=== PATIENT | female | born 1965 | race Two or more races ===

== ENCOUNTER 2024-10-28 13:38 | Inpatient (IN) | payer MEDICAID, OTHER ==
[~2024-10-28] VITALS: Ht 167.6 cm; Wt 94.3 kg
[~2024-10-28 13:38] MED LIST: ATOR20TA PO; CARB0.5D28 EACHEYE; CHOL20002 PO; DAPA1TAB4 PO; DORZ2SOL18 LEFTEYE; FENO200C25 PO; INSU100I61 SC; INSU1INJ19 SC; LORA-622 PO; LOSA-534 PO; METF-372 PO; SEMA2INJ3 SC
[2024-10-28 14:20] LABS: Basophils # (auto) 0.1 10 ^3/uL (0-0.2); Basophils % (auto) 1.1 % (0.0-2.0); Eosinophils # (auto) 0.1 10 ^3/uL (0-0.8); Hematocrit 42.4 % (36.0-46.0); Hemoglobin 14.5 g/dL (12.2-16.2); Lymphocytes # (auto) 1.8 10 ^3/uL (0.4-5.4); Lymphocytes % (auto) 26.9 % (10.0-50.0); Mean Corpuscular Hemoglobin 30.6 pg (28.0-32.0); Mean Corpuscular Hgb Conc. 34.2 g/dL (32.0-36.0); Mean Corpuscular Volume 89.6 fL (80.0-100.0); Monocytes # (auto) 0.4 10 ^3/uL (0-1.3); Monocytes % (auto) 5.9 % (0.0-12.0); Neutrophils # (auto) 4.4 10 ^3/uL (1.6-8.6); Neutrophils % (auto) 64.1 % (37.0-80.0); Nucleated Red Blood Cells % 0.1 %; Platelet Count (auto) 330 10^3/uL (140-450); Red Blood Cells 4.74 10^6/uL (4.0-5.20); Red Cell Distribution Width 13.4 % (11.8-14.3); White Blood Cell 6.8 10^3/uL (4.4-10.8)
[2024-10-28 14:34] LABS: INR 1.01 (0.9-1.15); Partial Thromboplastin Time 27.8 SEC (24.5-34.5); Prothrombin Time 10.7 sec (9.3-11.8)
[2024-10-28 14:37] LABS: Chloride 104 mmol/L (98-107); Sodium 136 mmol/L (136-145)
[2024-10-28 14:38] LABS: Anion Gap 7 (5-15); Calcium 9.5 mg/dL (8.7-10.4); Carbon Dioxide 25 mmol/L (20-31)
[2024-10-28 14:43] LABS: BUN/Creatinine Ratio 14.8 (10.0-20.0); Blood Urea Nitrogen 16 mg/dL (9-23)
[2024-10-28 14:49] LABS: Glucose 310 mg/dL (74-106); Potassium 5.6 mmol/L (3.5-5.1)
--- NOTE | 2024-10-28 16:08 | DVH ---
CHEST RADIOGRAPH Indication: high bp Technique: Single frontal view of the chest was obtained COMPARISON: None FINDINGS: Lines and Tubes: None Lungs: Clear Pleura: No effusion. No pneumothorax. Cardiomediastinal contours: Unremarkable Bones: Unremarkable IMPRESSION: No acute disease.
--- NOTE | 2024-10-28 16:14 | DVH ---
EXAM: CT HEAD WITHOUT CONTRAST INDICATION: R sided numb, R eye blurred vision TECHNIQUE: CT of the head without intravenous contrast. Radiation Dose Information: CT Dose: CTDI volume is 56.63 mGy. Dose-length product is 1002.48 mGy*cm The dose indicators for CT are the volume Computed Tomography (CT) Dose Index (CTDIvol) and the Dose Length Product (DLP), and are measured in units of mGy and mGy-cm, respectively. These indicators are not patient dose, but values generated from the CT scanner acquisition factors. The report includes radiation exposure data for exposures received during this examination. COMPARISON: None FINDINGS: There is no evidence of acute intracranial hemorrhage, extra-axial collection, mass effect, midline s hift, herniation or hydrocephalus. The ventricles, sulci and cisterns are age appropriate. Bilateral basal ganglia calcifications. The daigle-white differentiation is intact. Patchy periventricular and subcortical white matter hypoattenuation is nonspecific but may be related to small vessel ischemic disease. Right-sided ethmoid air cell opacities. The bilateral mastoid air cells are clear. The surrounding soft tissues and osseous structures are unremarkable. Right-sided orbital lens replac ement. IMPRESSION: 1. No CT evidence of acute intracranial abnormality. 2. Right ethmoid air cell opacities. HS:Y
[2024-10-28 16:59] VITALS: PULSE 72; RESP 18; O2SAT 99
[2024-10-28] MEDS: hydrALAZINE HCL 20 MG/ML VL IV ONE (17:02)
--- NOTE | 2024-10-28 18:21 | ED.PDOC ---
HPI (NEURO) HPI Comments 59 year old female presents to the ED with chief complaint of right sided numbness. Patient reports that she has been experiencing right sided facial, upper and lower extremity numbness, dizziness, headache, and nausea since blowing her nose around 9am this morning. Patient relays that she has become more off-balance as the day progressed and is not able to walk straight as of now. Patient states her right eye vision is blurred more than usual. Patient denies any vomiting, LOC, chest pain, SOB, fever, or chills. Chief Complaint: High Blood Pressure Time Seen by MD: 18:12 Primary Care Provider: UNKNOWN Reviewed Notes: Nurses Notes, Medications, Allergies Information Source: Patient Mode of Arrival: EMS Severity: Moderate Dizziness/Weakness Severity: Unable to do activities Headache Severity: Moderate Timing: Hours Duration: Since onset Prehospital treatment: None Headache Quality: Aching Headache Location: Generalized Numbness Location: (R) Sided, (L) Leg Onset: At rest Circumstances: Spontaneous Symptoms: Imbalance Before: Normal History of: DM Modifying factors: Nothing Associated Signs and Symptoms: Headache, Nausea, Numbness Past Medical History PAST MEDICAL HISTORY: DM, HTN Past Medical History (Other): L eye Glaucoma Surgical History (Other): R Cataract, Cataract surgery R eye, Rt toe amputation [employer]OWER[employer]PER[employer] History: Denies all [employer]OWER[employer]ANT [employer]PER[employer]OR Hx Family History Family History: Reviewed,noncontributory to illness Social History Smoker: Non-Smoker Alcohol: Denies ETOH Use Drugs: Denies Drug Use Lives In: Home Constitutional: denies: chills, diaphoresis, fatigue, fever, malaise, sweats, weakness, others EENTM: reports: blurred vision (right eye); denies: double vision, ear bleeding, ear discharge, ear drainage, ear pain, ear ringing, eye pain, eye redness, hearing loss, mouth pain, mouth swelling, nasal discharge, nose bleeding, nose congestion, nose pain, photophobia, tearing, throat pain, throat swelling, voice changes, others Respiratory: denies: cough, hemoptysis, orthopnea, SOB at rest, shortness of breath, SOB with excertion, stridor, wheezing, others Cardiovascular: denies: chest pain, dizzy spells, diaphoresis, Dyspnea on exertion, edema, irregular heart beat, left arm pain, lightheadedness, palpitations, PND, syncope, others Gastrointestinal: reports: nausea; denies: abdomen distended, abdominal pain, blood streaked bowels, constipated, diarrhea, dysphagia, difficulty swallowing, hematemesis, melena, poor appetite, poor fluid intake, rectal bleeding, rectal pain, vomiting, others Genitourinary: denies: abnormal vagina bleeding, burning, dyspareunia, dysuria, flank pain, frequency, hematuria, incontinence, pain, , vagina discharge, urgency, others Neurological: reports: dizziness, headache, right sided numbness, others (Imbalance, Left leg numbness); denies: fainting, left sided numbness, left sided weakness, numbness, paresthesia, pre-existing deficit, right sided weakness, seizure, speech problems, tingling, tremors, weakness Musculoskeletal: denies: back pain, gout, joint pain, joint swelling, muscle pain, muscle stiffness, neck pain, others Integumetry: denies: bruises, change in color, change in hair/nails, dryness, laceration, lesions, lumps, rash, wounds, others Allergic/Immunocompromised: denies: Difficulty Healing, Frequent Infections, Hives, Itching, others Hematologic/Lymphatic: denies: anemia, blood clots, easy bleeding, easy bruising, swollen glands, others Endocrine: denies: excessive hunger, excessive sweating, excessive thirst, excessive urination, flushing, intolerance to cold, intolerance to heat, unexplained weight gain, unexplained weight loss, others Psychiatric: denies: anxiety, bipolar disorder, depression, hopeless, panic disorder, schizophrenia, sleepless, suicidal, others All Other Systems: Reviewed and Negative Physical Exam General Appearance: No Apparent Distress, Obese HEENT: Other (Left eye cloudy, left ptosis (chronic per patient). Right extraocular movements intact, right pupil reactive to light.) Neck: Full Range of Motion, Normal Inspection Respiratory: Lungs Clear, No Accessory Muscle Use, No Respiratory Distress, Normal Breath Sounds Cardiovascular: No Edema, No JVD, Regular Rate/Rhythm Breast Exam: Deferred Gastrointestinal: Non Tender, Soft Genitalia: Deferred Pelvic: Deferred Rectal: Deferred Extremities: Normal inspection, Normal range of motion, Non-tender, No pedal edema Neurologic: Alert (Oriented x4), estate planning director II-XII nml as Tested (Except VII: Diminished light touch sensation right face), No Motor Deficits, Normal Affect, Normal Mood, Other (diminished light touch sensation on the right face and right upper and lower extremities, no focal weakness noted, unsteady gait ) Cerebellar Function: Ataxia Reflexes: NOT DONE Skin: Dry, Normal Color, Warm Lymphatic: NOT DONE EKG EKG : Comments Sinus rhythm, rate 72, normal intervals, normal axis, no ST/T changes. Was a procedure done? Was a procedure done?: No Differential Diagnosis (SZ) Seizure: Hypocalcemia, Hypoglycemia, Hyponatremia, Mass Lesion, Encephalopathy CVA: CVA, Electrolyte Imbalance, TIA General Weakness: Anemia, Vertigo: central, Vertigo: peripheral Headache: Migraine, Epidural Hemorrhage, Intracerebral Hemorrhage, Subarachnoid Hemorrhage, Subdural Hemorrhage X-Ray, Labs, Meds, VS Vital Signs Date Time Temp Pulse Resp B/P (MAP) Pulse Ox O2 Delivery O2 Flow Rate FiO2 10/28/24 20:14 73 18 159/88 (111) 97 10/28/24 17:02 155/94 10/28/24 16:59 98.1 72 18 155/94 (114) 99 98.1 10/28/24 16:59 72 18 99 Room Air* 0 21 10/28/24 14:00 72 10/28/24 13:45 97.3 80 14 190/84 (119) 99 Lab Test 10/28/24 16:30 10/28/24 14:06 Range/Units Sodium Level 136 136 136-145 mmol/L Potassium Level 4.8 5.6 *H 3.5-5.1 mmol/L Chloride Level 104 104 98-107 mmol/L Carbon Dioxide Level 25 25 20-31 mmol/L Anion Gap 7 7 5-15 Blood Urea Nitrogen 15 16 9-23 mg/dL Creatinine 1.15 H 1.08 H 0.550-1.02 mg/dL Glomerular Filtration Rate Calc 54 58 >90 mL/min BUN/Creatinine Ratio 13.0 14.8 10.0-20.0 Serum Glucose 316 H 310 H 74-106 mg/dL Calcium Level 10.0 9.5 8.7-10.4 mg/dL Troponin I High Sensitivity 3 L 5 </=34 ng/L White Blood Count 6.8 4.4-10.8 10^3/uL Red Blood Count 4.74 4.0-5.20 10^6/uL Hemoglobin 14.5 12.2-16.2 g/dL Hematocrit 42.4 36.0-46.0 % Mean Corpuscular Volume 89.6 80.0-100.0 fL Mean Corpuscular Hemoglobin 30.6 28.0-32.0 pg Mean Corpuscular Hemoglobin Concent 34.2 32.0-36.0 g/dL Red Cell Distribution Width 13.4 11.8-14.3 % Platelet Count 330 140-450 10^3/uL Mean Platelet Volume 8.7 6.9-10.8 fL Neutrophils (%) (Auto) 64.1 37.0-80.0 % Lymphocytes (%) (Auto) 26.9 10.0-50.0 % Monocytes (%) (Auto) 5.9 0.0-12.0 % Eosinophils (%) (Auto) 2.0 0.0-7.0 % Basophils (%) (Auto) 1.1 0.0-2.0 % Neutrophils # (Auto) 4.4 1.6-8.6 10 ^3/uL Lymphocytes # (Auto) 1.8 0.4-5.4 10 ^3/uL Monocytes # (Auto) 0.4 0-1.3 10 ^3/uL Eosinophils # (Auto) 0.1 0-0.8 10 ^3/uL Basophils # (Auto) 0.1 0-0.2 10 ^3/uL Nucleated Red Blood Cells 0.1 % Prothrombin Time 10.7 9.3-11.8 sec Prothrombin Time INR 1.01 0.9-1.15 Activated Partial Thromboplast Time 27.8 24.5-34.5 SEC B-Type Natriuretic Peptide 80.37 0-100 pg/mL PROCEDURE(s): HWOCT - HEAD WITHOUT CONTRAST REASON: R sided numb, R eye blurred vision ORDER NUMBER(s): [id number], ACCESSION NUMBER(s): [id number] EXAM: CT HEAD WITHOUT CONTRAST INDICATION: R sided numb, R eye blurred vision TECHNIQUE: CT of the head without intravenous contrast. Radiation Dose Information: CT Dose: CTDI volume is 56.63 mGy. Dose-length product is 1002.48 mGy*cm The dose indicators for CT are the volume Computed Tomography (CT) Dose Index (CTDIvol) and the Dose Length Product (DLP), and are measured in units of mGy and mGy-cm, respectively. These indicators are not patient dose, but values generated from the CT scanner acquisition factors. The report includes radiation exposure data for exposures received during this examination. COMPARISON: None FINDINGS: There is no evidence of acute intracranial hemorrhage, extra-axial collection, mass effect, midline shift, herniation or hydrocephalus. The ventricles, sulci and cisterns are age appropriate. Bilateral basal ganglia calcifications. The daigle-white differentiation is intact. Patchy periventricular and subcortical white matter hypoattenuation is nonspecific but may be related to small vessel ischemic disease. Right-sided ethmoid air cell opacities. The bilateral mastoid air cells are clear. The surrounding soft tissues and osseous structures are unremarkable. Right- sided orbital lens replacement. IMPRESSION: 1. No CT evidence of acute intracranial abnormality. 2. Right ethmoid air cell opacities. HS:Y EDURE(s): CXRP - CHEST PORTABLE REASON: high bp ORDER NUMBER(s): [id number], ACCESSION NUMBER(s): [id number] CHEST RADIOGRAPH Indication: high bp Technique: Single frontal view of the chest was obtained COMPARISON: None FINDINGS: Lines and Tubes: None Lungs: Clear Pleura: No effusion. No pneumothorax. Cardiomediastinal contours: Unremarkable Bones: Unremarkable IMPRESSION: No acute disease. X-Ray, Labs, Meds, VS Comment 59-year-old female with a history of hypertension, diabetes and glaucoma presenting complaining of right facial, right upper and lower extremity numbness and disequilibrium Vitals remarkable for BP 190/84 Exam remarkable for diminished light touch sensation on the right face and right upper and lower extremities, no focal weakness noted, unsteady gait Rhythm strip independently interpreted by me: Sinus rhythm, rate 72, no ectopy. CT head: IMPRESSION: 1. No CT evidence of acute intracranial abnormality. 2. Right ethmoid air cell opacities. Chest x-ray unremarkable CBC unremarkable, basic metabolic panel initially remarkable for potassium 5.6, creatinine 1.08, glucose 310, repeat basic metabolic panel showed normal potassium, creatinine 1.15, glucose 316 Patient treated with the following in the ED: Aspirin 325 mg p.o. On re-evaluation, patient was resting comfortably. No new neurologic changes. Plan is to admit the patient for brain MRI and Neurology evaluation. Time of 1ST Reevaluation: 19:12 Reevaluation 1ST: Unchanged Patient Education/Counseling: Diagnosis, Treatment Family Education/Counseling: No Family Present Departure 1 Departure Time of Disposition: 20:00 Impression: Primary Impression: Right sided numbness Additional Impression: Disequilibrium Disposition: ADMITTED INPATIENT Admit to: Tele Condition: Guarded Critical Care Note Critical Care Time?: No Stability Stability form required: No Heart Score Heart Score: Heart Score Response (Comments) Value History N/A 0 EKG N/A 0 Age N/A 0 Risk Factors N/A 0 Troponin N/A 0 Total 0 I personally scribed for DONOVAN STAPLES MD ([email or web address]) on 10/28/24 at 18:21. Electronically submitted by Joshua Friend ([email or web address]). DONOVAN STAPLES MD Oct 28, 2024 18:21
[2024-10-28 18:22] LABS: Chloride 104 mmol/L (98-107); Potassium 4.8 mmol/L (3.5-5.1); Sodium 136 mmol/L (136-145)
[2024-10-28 18:23] LABS: Anion Gap 7 (5-15); Carbon Dioxide 25 mmol/L (20-31)
[2024-10-28 18:28] LABS: Blood Urea Nitrogen 15 mg/dL (9-23)
[2024-10-28 18:31] LABS: Glucose 316 mg/dL (74-106)
[2024-10-28] MEDS ORDERED: InsuLIN REG 1unit/0.01ml Soln (100units/ml) IV ONE (20:45)
[2024-10-28] MEDS ORDERED: MORPHINE SULFATE INJ 2 MG/ml SYRG IV PRN ×2 (20:45)
[2024-10-28] MEDS ORDERED: ONDANSETRON HCL 4 MG/2 ML VIAL IV PRN (20:45)
[2024-10-28] MEDS ORDERED: DEXTROSE (50%) 50ML SYRG IV PRN (20:45)
[2024-10-28] MEDS ORDERED: NITROGLYCERIN 0.4 MG SL TAB SL PRN (20:45)
[2024-10-28] MEDS ORDERED: CALCIUM GLUC 1,000mg/50ml-NS 50 ML IV ONE (20:45)
[2024-10-28] MEDS ORDERED: SODIUM ZIRCONIUM CYCL 10 GM PAK PO ONE (20:45)
[2024-10-28] MEDS ORDERED: DOCUSATE SOD 100 MG CAP PO PRN (20:45)
[2024-10-28] MEDS: ASPirin 325 MG TAB PO ONE (21:09)
--- NOTE | 2024-10-28 21:56 | DVH ---
Carotid Duplex Date: 10/28/2024 08:45 PM Clinical History: right sided numbness, rule out carotid stenosis Comparison: None Technique: Duplex Doppler evaluation of the extracranial carotid and vertebral arteries including color Doppler and spectral/pulsed waveform analysis was performed. Findings: RIGHT SIDE: The peak systolic velocities are 66.8 cm/s in the distal CCA and 91.9 cm/s in the proximal ICA.The IC A/CCA ratio is less than 2. The external carotid artery is patent with peak systolic velocity of 81.4 cm/s proximally. There is appropriate antegrade flow in the right vertebral artery, 63.6 cm/s LEFT SIDE: The peak systolic velocities are 56.6 cm/s in the distal CCA and 88.5 cm/s in the proximal ICA.. The ICA/CCA ratio is less than 2. The external carotid artery is patent with peak systolic velocity of 124 cm/s proximally. There is appropriate antegrade flow in the left vertebral artery, 56.9 cm/s IMPRESSION: 1. No hemodynamically significant stenosis noted in the right carotid system. 2. No hemodynamically significant stenosis noted in the left carotid system. 3. Reference: Radiology 2003; 229:340-346
--- NOTE | 2024-10-28 22:24 | DVHHPRES ---
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 Patient reported that she had this numbness on the right side of the face, right lower extremity that started around 9:00 a.m. in the morning. Patient reported she could not feel on the right side of the face and right upper and lower extremity but she could move the right upper and lower extremity. Patient also reported some headache, intermittent, 8/10 in severity and also reported some dizziness and vertigo which was in the morning but it has subsided now. Patient also reported that she had a fall on October 20 and hit her head. patient denies Any chest pain, shortness of breath, acute constipation or diarrhea, acute joint redness or swelling, dysarthria. Patient reported she had a fall on October 20, 2024 and hit her head and right shoulder. Patient reported she was at [facility] but racebook writer could not find the documentation from before. Arrival blood pressure was elevated 190/84, 80, respiration 14. Initial lab workup revealed hyperkalemia with a potassium 5.6, corrected, serum creatinine mildly elevated 1.08, blood sugar elevated 310, negative for troponin I BNP/WBC/hemoglobin/platelet/sodium within normal limit. CT head- No CT evidence of acute intracranial abnormality. Right ethmoid air cell opacities. Carotid Doppler revealed-1. No hemodynamically significant stenosis noted in the right or left carotid system. 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 Cardiovascular- deny acute chest pain or shortness of breath or cough or palpitation Respiratory- denies cough or short of breath or wheezing Gastrointestinal- denies any rectal bleeding, nausea or vomiting Musculoskeletal-denies acute joint swelling or tenderness or redness Neurological- denies acute dysarthria, dysphagia, change in vision Psychiatry- denies depression or SI or HI Skin- denies acute rash or purpura Allergies: Coded Allergies: NO KNOWN ALLERGIES (Unverified , 10/28/24) Medications Current Medications Medications Dose Ordered Sig/Mesfin Route Start Time Stop Time Status Last Admin Dose Admin Ondansetron HCl 4 mg Q4HP PRN IV 10/28/24 20:45 Docusate Sodium 100 mg BIDPRN PRN PO 10/28/24 20:45 Acetaminophen 650 mg Q6HP PRN PO 10/28/24 20:45 Morphine Sulfate 2 mg Q4HPRN PRN IV 10/28/24 20:45 Enoxaparin Sodium 40 mg DAILY SC 10/28/24 20:45 Nitroglycerin 0.4 mg Q5MINP PRN SL 10/28/24 20:45 Morphine Sulfate 2 mg Q30M PRN IV 10/28/24 20:45 Diagnostic Test (Pha) 1 strip ACHS 10/28/24 22:00 Insulin Human Regular HS SC 10/28/24 22:00 Insulin Human Regular AC SC 10/29/24 07:00 Dextrose 50 ml UD PRN IV 10/28/24 20:45 Atorvastatin Calcium 40 mg HS PO 10/29/24 22:00 Hydralazine HCl 10 mg Q6HP PRN IV 10/28/24 21:00 Aspirin 81 mg DAILY PO 10/29/24 10:00 Exam Vital Signs Vital Signs Date Time Temp Pulse Resp B/P (MAP) Pulse Ox O2 Delivery O2 Flow Rate FiO2 10/28/24 20:14 73 18 159/88 (111) 97 10/28/24 16:59 98.1 98.1 10/28/24 16:59 Room Air* 0 21 Exam General examination- awake, alert, oriented, conversant HEENT- PEERLA, no acute nasal discharge Cardiovascular- S1-S2 audible, rate and rhythm regular, no murmur Respiratory- CTAB, no wheeze or rhonchi Gastrointestinal-nontender, bowel sound+. Nondistended Musculoskeletal-no acute joint swelling or tenderness or redness# Lower extremity- ulcer on the right little toe and enter surface of the Right foot Neurological- diminished vision left eye Psychiatry- denies depression or SI or HI Skin- no acute rash or purpura Labs/Xrays Labs Test 10/28/24 16:30 10/28/24 14:06 Range/Units Sodium Level 136 136-145 mmol/L Potassium Level 4.8 3.5-5.1 mmol/L Chloride Level 104 98-107 mmol/L Carbon Dioxide Level 25 20-31 mmol/L Anion Gap 7 5-15 Blood Urea Nitrogen 15 9-23 mg/dL Creatinine 1.15 H 0.550-1.02 mg/dL Glomerular Filtration Rate Calc 54 >90 mL/min BUN/Creatinine Ratio 13.0 10.0-20.0 Serum Glucose 316 H 74-106 mg/dL Calcium Level 10.0 8.7-10.4 mg/dL Troponin I High Sensitivity 3 L </=34 ng/L White Blood Count 6.8 4.4-10.8 10^3/uL Red Blood Count 4.74 4.0-5.20 10^6/uL Hemoglobin 14.5 12.2-16.2 g/dL Hematocrit 42.4 36.0-46.0 % Mean Corpuscular Volume 89.6 80.0-100.0 fL Mean Corpuscular Hemoglobin 30.6 28.0-32.0 pg Mean Corpuscular Hemoglobin Concent 34.2 32.0-36.0 g/dL Red Cell Distribution Width 13.4 11.8-14.3 % Platelet Count 330 140-450 10^3/uL Mean Platelet Volume 8.7 6.9-10.8 fL Neutrophils (%) (Auto) 64.1 37.0-80.0 % Lymphocytes (%) (Auto) 26.9 10.0-50.0 % Monocytes (%) (Auto) 5.9 0.0-12.0 % Eosinophils (%) (Auto) 2.0 0.0-7.0 % Basophils (%) (Auto) 1.1 0.0-2.0 % Neutrophils # (Auto) 4.4 1.6-8.6 10 ^3/uL Lymphocytes # (Auto) 1.8 0.4-5.4 10 ^3/uL Monocytes # (Auto) 0.4 0-1.3 10 ^3/uL Eosinophils # (Auto) 0.1 0-0.8 10 ^3/uL Basophils # (Auto) 0.1 0-0.2 10 ^3/uL Nucleated Red Blood Cells 0.1 % Prothrombin Time 10.7 9.3-11.8 sec Prothrombin Time INR 1.01 0.9-1.15 Activated Partial Thromboplast Time 27.8 24.5-34.5 SEC B-Type Natriuretic Peptide 80.37 0-100 pg/mL Assessment/Plan Assessment/Plan # Right-sided numbness likely due to TIA -CT head no acute intracranial infarction or hemorrhage -continue aspirin 81 mg q.d. -continue clopidogrel 75 mg daily -continue Lovenox 40 mg subcutaneously daily -atorvastatin 40 mg q.h.s. --ordered neurology consult #Hypertensive urgency -patient with elevated blood pressure 190/94 -right-sided numbness -continue IV hydralazine 10 mg q.6h p.r.n. 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 Villa, nursing staff, patient Total time spent on patient evaluation, chart review, assessment and plan, discussion discussion >30 minutes Plan discussed with: Patient Plan discussed with: Patient, Other (RN) My Orders Orders - PAULA MENDOZA RESIDENT Procedure Category Date Status Time Admit ADMIT 10/28/24 Transmitted 20:34 Code Status CODE 10/28/24 Transmitted 20:34 Ondansetron Hcl PHA 10/28/24 In Process (Zofran) 20:45 Docusate Sodium PHA 10/28/24 In Process Capsule (Colace 20:45 Complete Blood Count LAB 10/29/24 Verified 04:00 Comprehensive LAB 10/29/24 Verified Metabolic Panel 04:00 Cardiac DIET 10/29/24 Transmitted Diet-2gna,Lofat,Lochol Breakfast Echo 2d Mode Cardiac US 10/28/24 Logged DOP 20:34 Carotid Duplx W Color US 10/28/24 Resulted DOP 20:34 Acetaminophen Tablet PHA 10/28/24 In Process (Tylenol Tablet) 20:45 Morphine Sulfate PHA 10/28/24 In Process Injection 20:45 Enoxaparin Sodium PHA 10/28/24 In Process (Lovenox) 20:45 Nitroglycerin PHA 10/28/24 In Process Sublingual (Ntrostat 20:45 Morphine Sulfate PHA 10/28/24 In Process Injection 20:45 Oxygen By Nasal RT 10/28/24 Transmitted Cannula 20:34 Electrocardigram EKG 10/28/24 Logged 20:37 Glucose Blood PHA 10/28/24 In Process (Accu-Chek Comfort 22:00 Insulin R (Human) PHA 10/28/24 In Process (Insulin R) 22:00 Insulin R (Human) PHA 10/29/24 In Process (Insulin R) 07:00 Dextrose 50% Syringe PHA 10/28/24 In Process 20:45 Thyroid Stimulating LAB 10/28/24 Logged Hormone 20:37 Magnesium LAB 10/28/24 Logged 20:37 Drug Screen LAB 10/28/24 Logged 20:37 Blood Alcohol LAB 10/28/24 Logged 20:37 Comprehensive LAB 10/28/24 Logged Metabolic Panel 20:57 Hydralazine Injection PHA 10/28/24 In Process (Apresoline Inject 21:00 Aspirin Tablet PHA 10/29/24 In Process 10:00 Atorvastatin (Lipitor) PHA 10/29/24 In Process 22:00 Date of Service: Oct 28, 2024 Billing Provider: MARNI VILLA MD Common Visit Codes: [id number] INP/OBS CARE (HIGH) PAULA MENDOZA RESIDENT Oct 28, 2024 22:24 MARNI VILLA MD Oct 29, 2024 11:06
[2024-10-28 23:50] LABS: Alanine Aminotransferase 27 U/L (7-40); Albumin 3.9 g/dL (3.2-4.8); Anion Gap 8 (5-15); BUN/Creatinine Ratio 12.3 (10.0-20.0); Blood Alcohol < 3.0 mg/dL (<10); Blood Urea Nitrogen 16 mg/dL (9-23); Calcium 10.1 mg/dL (8.7-10.4); Carbon Dioxide 25 mmol/L (20-31); Chloride 105 mmol/L (98-107); Magnesium 1.8 mg/dL (1.6-2.6); Potassium 4.7 mmol/L (3.5-5.1); Sodium 138 mmol/L (136-145)
[2024-10-28 23:51] LABS: Bilirubin, Total 0.3 mg/dL (0.2-1.0); Total Protein 6.9 g/dL (5.7-8.2)
[2024-10-28 23:54] LABS: Alkaline Phosphatase 118 U/L (46-116); Aspartate Aminotransferase 41 U/L (13-40); Glucose 226 mg/dL (74-106)
[2024-10-29 05:45] LABS: Basophils # (auto) 0.1 10 ^3/uL (0-0.2); Basophils % (auto) 0.9 % (0.0-2.0); Eosinophils # (auto) 0.1 10 ^3/uL (0-0.8); Hematocrit 44.4 % (36.0-46.0); Hemoglobin 15.2 g/dL (12.2-16.2); Lymphocytes # (auto) 2.6 10 ^3/uL (0.4-5.4); Lymphocytes % (auto) 35.1 % (10.0-50.0); Mean Corpuscular Hemoglobin 30.5 pg (28.0-32.0); Mean Corpuscular Hgb Conc. 34.2 g/dL (32.0-36.0); Mean Corpuscular Volume 89.4 fL (80.0-100.0); Monocytes # (auto) 0.5 10 ^3/uL (0-1.3); Monocytes % (auto) 7.2 % (0.0-12.0); Neutrophils % (auto) 54.8 % (37.0-80.0); Platelet Count (auto) 369 10^3/uL (140-450); Red Blood Cells 4.96 10^6/uL (4.0-5.20); Red Cell Distribution Width 13.7 % (11.8-14.3); White Blood Cell 7.4 10^3/uL (4.4-10.8)
[2024-10-29 06:08] LABS: Alanine Aminotransferase 26 U/L (7-40); Alkaline Phosphatase 112 U/L (46-116); Anion Gap 10 (5-15); Aspartate Aminotransferase 37 U/L (13-40); BUN/Creatinine Ratio 14.5 (10.0-20.0); Blood Urea Nitrogen 19 mg/dL (9-23); Carbon Dioxide 27 mmol/L (20-31); Chloride 103 mmol/L (98-107); Potassium 4.6 mmol/L (3.5-5.1); Sodium 140 mmol/L (136-145)
[2024-10-29 06:09] LABS: Bilirubin, Total 0.4 mg/dL (0.2-1.0); Total Protein 6.9 g/dL (5.7-8.2)
[2024-10-29 06:11] LABS: Folate (Folic Acid) 15.45 ng/mL (>5.38)
[2024-10-29 06:17] LABS: Glucose 232 mg/dL (74-106)
[2024-10-29] MEDS: ENOXAPARIN SOD 40 MG/0.4 ML SYRINGE SC SCH (06:33)
[2024-10-29] MEDS: ATORVASTATIN 20 MG TAB PO ONE (06:33)
[2024-10-29] MEDS: InsuLIN REG 1unit/0.01ml Soln (100units/ml) SC SCH ×2 (06:33→07:34)
[2024-10-29] MEDS: PANTOPRAZOLE 40 MG TAB PO ONE (06:34)
[2024-10-29] MEDS: ACCU-CHEK COMFORT CURVE STRIP VI SCH (06:34)
[2024-10-29] MEDS: CLOPIDOGREL BISULFATE 75 MG TAB PO ONE (06:34)
[2024-10-29 07:37] VITALS: PULSE 70; RESP 18; O2SAT 97
[2024-10-29] MEDS: hydrALAZINE HCL 20 MG/ML VL IV PRN (07:44)
--- NOTE | 2024-10-29 08:42 | DVHINCON2 ---
Date of service: Oct 29, [address] Charlton Reason for Consultation Right-sided numbness History of Present Illness Ms. Manrique is a 59 years old right-handed female with a history of hypertension, diabetes, glaucoma, left eye blindness, obesity, she came to the [facility] on 10/28/2024 with a chief company of right-sided numbness On 10/28/2024, the patient was developed tingling and numbness in the right head, with spread to the right face, right upper extremity, right lower extremity all the way down to the foot with 3 seconds, without weakness, meanwhile she was developed headache, which persist until around 830 this morning. Along with paresthesia, the patient was can not walk because she drifts to the right side she walks She was developed left eye pain about 5 minutes prior to my interview For about four years, the patient was has tingling and numbness but no pain in the feet About four years ago, she developed left eyelid ptosis and left eye blindness at the same time Otherwise she denies acute illness recently Plasma alcohol, 10/28/2024: < 3 CBC, 10/29/2024: Unremarkable BUN/CR, 10/29/2024: 19/1.31 Liver function tests, 10/29/2024: Unremarkable Vitamin B12, 10/29/2024: 990 Folic acid, 10/29/2024: 15.45 TSH, 10/29/2024: 2.84 Carotid Doppler, 10/28/2024: 1. No hemodynamically significant stenosis noted in the right carotid system. 2. No hemodynamically significant stenosis noted in the left carotid system CT head, 10/28/2024: 1. No CT evidence of acute intracranial abnormality. 2. Right ethmoid air cell opacities Past Medical History Hypertension, diabetes, glaucoma Past Surgical History Left toe amputation, bilateral eye surgeries Family History Hypertension, diabetes, leukemia Social History She was a tobacco smoker, no history of alcohol or recreational substance abuse Allergies: Coded Allergies: NO KNOWN ALLERGIES (Unverified , 10/28/24) Current Medications Current Medications Medications (Trade) Dose Ordered Sig/Mesfin Route PRN Reason Start Time Stop Time Status Last Admin Ondansetron HCl (Zofran) 4 mg Q4HP PRN IV NAUSEA / VOMITING 10/28/24 20:45 Docusate Sodium (Colace Capsule) 100 mg BIDPRN PRN PO FOR CONSTIPATION 10/28/24 20:45 Acetaminophen (Tylenol Tablet) 650 mg Q6HP PRN PO PAIN SCALE 1-3 OR TEMP>100.4 10/28/24 20:45 Morphine Sulfate 2 mg Q4HPRN PRN IV SEVERE PAIN (7-10 PAIN SCALE) 10/28/24 20:45 Enoxaparin Sodium (Lovenox) 40 mg DAILY SC 10/28/24 20:45 Nitroglycerin (Ntrostat Sublingual) 0.4 mg Q5MINP PRN SL FOR CHEST PAIN 10/28/24 20:45 Morphine Sulfate 2 mg Q30M PRN IV FOR CHEST PAIN 10/28/24 20:45 Diagnostic Test (Pha) (Accu-Chek Comfort Curve T) 1 strip ACHS 10/28/24 22:00 10/29/24 07:37 Insulin Human Regular (InsuLIN R) HS SC 10/28/24 22:00 Insulin Human Regular (InsuLIN R) AC SC 10/29/24 07:00 10/29/24 07:34 Dextrose 50 ml UD PRN IV Blood Sugar LESS THAN 60 10/28/24 20:45 Atorvastatin Calcium (Lipitor) 40 mg HS PO 10/29/24 22:00 Hydralazine HCl (Apresoline Injection) 10 mg Q6HP PRN IV SBP>150 10/28/24 21:00 10/29/24 07:44 Aspirin 81 mg DAILY PO 10/29/24 10:00 Clopidogrel Bisulfate (Plavix) 75 mg DAILY PO 10/29/24 10:00 Pantoprazole Sodium (Protonix Tablet) 40 mg DAILY@0600 PO 10/30/24 06:00 Review of Systems As above, the other systems are negative Vital Signs Vital Signs Date Time Temp Pulse Resp B/P (MAP) Pulse Ox O2 Delivery O2 Flow Rate FiO2 10/29/24 07:44 175/106 10/29/24 07:37 70 18 97 Room Air* 0 21 10/29/24 07:29 98.3 98.3 Physical Exam GENERAL EXAM: General: the patient is well developed and nourished. No acute distress. HEENT: Normocephalic, neck is supple, no carotid bruits. No mass. RESPIRATORY: Normal respiratory effort with symmetrical lung expansion. Lungs clear to auscultation. CARDIOVASCULAR: Regular rate and rhythm with no murmurs. S1, S2. ABDOMEN: Soft, nontender, normal bowel sound NEUROLOGICAL: MENTAL STATUS: Awake and alert. Oriented to person, place, time and general circumstances. Able to give personal history. The patient is aware of recent events SPEECH, LANGUAGE, HIGHER CORTICAL FUNCTION: no aphasia or dysathria. CRANIAL NERVES: #2: Intact visual schulz to confrontation. No lipase 70 in the left eye #3,4,6: Pupils are equal, round and reactive. EOMs full and conjugate. No nystagmus. #5: Facial sensation intact in all three divisions bilaterally. Mandibular strength intact. Ptosis in the left eye, without associated abnormal vascular dilatation and skin secretion #7: Facial muscles symmetrical and strength intact. #8: Hearing grossly normal to voice. #9,10: Uvula and soft palate rise in the midline. Swallow and voice are normal. #11: Trapezius and sternomastoid strength intact bilaterally. #12: Tongue midline. No fasciculations or atrophy. SENSATION: Sensation to touch and pinprick is diminished distally in the lower extremities. Not care if there diminished pinprick light touch in the left leg. MOTOR: Normal tone in the upper and lower extremity. Normal muscle bulk. No fasciculations. No abnormal movements or posturing. Muscle strength of the major groups in the upper extremities is 5/5. Muscle strength of the major groups in the lower extremities is 5/5. No extremity drift REFLEXES: Deep tendon reflexes are symmetrical. No pathological reflexes. CEREBELLAR/COORDINATION: Finger to nose is normal bilaterally. GAIT/STATION: deferred. Labs/Diagnostic Data Labs Test 10/29/24 07:27 10/29/24 05:21 10/28/24 23:12 10/28/24 16:30 Range/Units POC Glucose 258 H 70-106 mg/dl White Blood Count 7.4 4.4-10.8 10^3/uL Red Blood Count 4.96 4.0-5.20 10^6/uL Hemoglobin 15.2 12.2-16.2 g/dL Hematocrit 44.4 36.0-46.0 % Mean Corpuscular Volume 89.4 80.0-100.0 fL Mean Corpuscular Hemoglobin 30.5 28.0-32.0 pg Mean Corpuscular Hemoglobin Concent 34.2 32.0-36.0 g/dL Red Cell Distribution Width 13.7 11.8-14.3 % Platelet Count 369 140-450 10^3/uL Mean Platelet Volume 8.6 6.9-10.8 fL Neutrophils (%) (Auto) 54.8 37.0-80.0 % Lymphocytes (%) (Auto) 35.1 10.0-50.0 % Monocytes (%) (Auto) 7.2 0.0-12.0 % Eosinophils (%) (Auto) 2.0 0.0-7.0 % Basophils (%) (Auto) 0.9 0.0-2.0 % Neutrophils # (Auto) 4.0 1.6-8.6 10 ^3/uL Lymphocytes # (Auto) 2.6 0.4-5.4 10 ^3/uL Monocytes # (Auto) 0.5 0-1.3 10 ^3/uL Eosinophils # (Auto) 0.1 0-0.8 10 ^3/uL Basophils # (Auto) 0.1 0-0.2 10 ^3/uL Nucleated Red Blood Cells 0.0 % D-Dimer, Quantitative 1.74 H 0.0-0.49 mg/L FEU Sodium Level 140 136-145 mmol/L Potassium Level 4.6 3.5-5.1 mmol/L Chloride Level 103 98-107 mmol/L Carbon Dioxide Level 27 20-31 mmol/L Anion Gap 10 5-15 Blood Urea Nitrogen 19 9-23 mg/dL Creatinine 1.31 H 0.550-1.02 mg/dL Glomerular Filtration Rate Calc 46 >90 mL/min BUN/Creatinine Ratio 14.5 10.0-20.0 Serum Glucose 232 H 74-106 mg/dL Hemoglobin A1c 11.6 H <5.7 % A1C Calcium Level 10.0 8.7-10.4 mg/dL Total Bilirubin 0.4 0.2-1.0 mg/dL Aspartate Amino Transferase (AST) 37 13-40 U/L Alanine Aminotransferase (ALT) 26 7-40 U/L Alkaline Phosphatase 112 46-116 U/L Total Protein 6.9 5.7-8.2 g/dL Albumin 4.0 3.2-4.8 g/dL Vitamin B12 Level 990 H 211-911 pg/mL Folic Acid 15.45 >5.38 ng/mL Magnesium Level 1.8 1.6-2.6 mg/dL Thyroid Stimulating Hormone (TSH) 2.84 0.55-4.78 uIU/mL Plasma/Serum Blood Alcohol < 3.0 <10 mg/dL Troponin I High Sensitivity 3 L </=34 ng/L Test 10/28/24 14:06 Range/Units Prothrombin Time 10.7 9.3-11.8 sec Prothrombin Time INR 1.01 0.9-1.15 Activated Partial Thromboplast Time 27.8 24.5-34.5 SEC B-Type Natriuretic Peptide 80.37 0-100 pg/mL Assessment Acute left paresthesia, gait disturbance, to rule out acute stroke Polyneuropathy Chronic left eyelid ptosis Plan/Recommendation Monitoring Supportive treatment Telemetry Lipitor profile Echocardiogram MRI brain scan Aspirin 81 mg daily Plavix 75 mg Lipitor 40 mg daily GI prophylaxis DVT prophylaxis Up to chair Physical therapy Foot care Daily foot inspection Soft, white and protect she was only Follow up with her doctor on discharge Progress: Poor This medical document was created using an electronic medical record system with [employer] computerized dictation system. Although this document has been carefully reviewed, there may still be some phonetic and typographical errors. These areas are purely typographical due to imperfections of the software programs, and do not reflect any compromise in the patient's medical care. Plan discussed with: Patient JUNIOR MONIQUE MD Oct 29, 2024 08:42
[2024-10-29] MEDS: ASPirin 81 mg TAB PO SCH (09:19)
[2024-10-29] MEDS: CLOPIDOGREL BISULFATE 75 MG TAB PO SCH (09:20)
[2024-10-29] MEDS ORDERED: LORazepam 2MG/ML-1ML VIAL IV PRN (10:00)
--- NOTE | 2024-10-29 11:12 | DVH ---
PROCEDURE: MRI BRAIN HEAD WO CONTRAST INDICATION: CVA EXAM DATE: 10/29/2024 10:31 AM COMPARISON: CT HEAD WITHOUT CONTRAST on DOS: 10/28/24 TECHNIQUE: MRI of the brain without intravenous contrast. FINDINGS: There is a focus of restricted diffusion in the left thalamus measuring up to 7 mm. There is a small focus of restricted diffusion in the tail of the left corpus callosum. There is no evidence of acute intracranial hemorrhage, extra-axial collection, mass effect, midline s hift, herniation or hydrocephalus. The ventricles, sulci and cisterns appear age appropriate. Mild changes of chronic microvascular ischemic disease. There are no signal abnormalities on the susceptibility weighted sequences. The major vascular flow voids are present. Mild opacification of the right mastoid air cells. The surrounding soft tissues and osseous structur es are unremarkable. IMPRESSION: 1. 2 small areas of acute / subacute ischemia in the left thalamus and left caudate. Clinical correl ation and continued follow-up is recommended. Consider embolic sources. HS:Y
--- NOTE | 2024-10-29 12:45 | ECG ---
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
--- NOTE | 2024-10-29 14:09 | DVHPNRES ---
Progress Note Date Seen: Oct 29, 2024 Resident Creating Document: ABDULAZIZ KURTZ RESIDENT Medical Necessity Reason Pt with a Central, PICC or Fol: No Subjective Review of Systems GERARD ADEN is a 59-year-old female with a PMH of type 2 DM, HTN, CVA presented to the ED with the chief complaints right-sided facial and upper and lower extremity numbness since yesterday. Patient reported symptoms has started yesterday morning 9 a.m., numbness in the right side of face right upper and bilateral lower extremities associated with headache which is 8 of 10 in severity, dizziness. Patient reported history of fall on October 20 and hit her head. patient reported folds ago she had tingling and numbness and developed a left eye ptosis and left eye blindness. On my assessment patient denies Fever, nausea, vomiting, chest pain, palpitations, diaphoresis, abdominal pain, diarrhea, constipation and other acute associated symptoms. PMH: Type 2 DM, HTN, left eye vision loss, CVA PSH: Right cataract surgery, right toe amputation Family history: DM and HTN in mother and father. PSH: Lives with family. Denies smoking, alcohol and other drug abuse Allergies: No known allergies Home medications: Aspirin, insulin, losartan, Ozempic Patient seen and examined at the bedside. Patient reported improvement in her symptoms since admission. CT head and carotid Doppler showed no acute abnormalities. MRI brain showed 2 small acute or subacute ischemic changes in left thalamus and left caudate, neurology hr business partner consultant evaluated the patient advised to continue aspirin, Plavix, Lipitor along with supportive treatment. Currently patient is monitoring and telemetry unit. Ordered echocardiogram, pending. Objective vital signs Vital Sign Date Time Temp Pulse Resp B/P (MAP) Pulse Ox O2 Delivery O2 Flow Rate FiO2 10/29/24 07:44 175/106 10/29/24 07:37 70 18 97 Room Air* 0 21 10/29/24 07:29 98.3 98.3 medications Current Medications Medications Dose Ordered Sig/Mesfin Route Start Time Stop Time Status Last Admin Dose Admin Ondansetron HCl 4 mg Q4HP PRN IV 10/28/24 20:45 Docusate Sodium 100 mg BIDPRN PRN PO 10/28/24 20:45 Acetaminophen 650 mg Q6HP PRN PO 10/28/24 20:45 Morphine Sulfate 2 mg Q4HPRN PRN IV 10/28/24 20:45 Enoxaparin Sodium 40 mg DAILY SC 10/28/24 20:45 10/29/24 09:20 40 MG Nitroglycerin 0.4 mg Q5MINP PRN SL 10/28/24 20:45 Morphine Sulfate 2 mg Q30M PRN IV 10/28/24 20:45 Diagnostic Test (Pha) 1 strip ACHS 10/28/24 22:00 10/29/24 12:11 1 STRIP Insulin Human Regular HS SC 10/28/24 22:00 Insulin Human Regular AC SC 10/29/24 07:00 10/29/24 12:10 9 UNITS Dextrose 50 ml UD PRN IV 10/28/24 20:45 Atorvastatin Calcium 40 mg HS PO 10/29/24 22:00 Aspirin 81 mg DAILY PO 10/29/24 10:00 10/29/24 09:19 81 MG Clopidogrel Bisulfate 75 mg DAILY PO 10/29/24 10:00 10/29/24 09:20 75 MG Pantoprazole Sodium 40 mg DAILY@0600 PO 10/30/24 06:00 Lorazepam 1 mg ONCE PRN IV 10/29/24 10:00 Losartan Potassium 50 mg DAILY PO 10/30/24 10:00 UNV Ergocalciferol 50,000 unit Q7D PO 10/29/24 14:00 UNV Examination Pt is lying on bed General Appearance: Alert, Oriented X3, Cooperative, Not in acute distress HEENT: Atraumatic, Mucous membranes moist/pink Respiratory: Clear to auscultation, Normal air movement, No added sounds Cardiovascular: Regular rate, Normal S1, Normal S2, No murmurs Abdominal: Active bowel sounds, Soft, no distention, no tenderness Extremities:Chronic nonhealing wound on RLE palmar surface . No edema, Normal pulses, No tenderness/swelling Skin: Chronic nonhealing wound on RLE palmar surface Neuro: Normal speech, motor deficits none but Sensation to touch and pinprick is diminished distally in the lower extremities. Psych/Mental Status: Mental status NL, Mood NL Nurse was there as Stroke Coordinator during examination laboratory and microbiology Laboratory Tests 10/29/24 05:21 Test 10/29/24 05:21 Range/Units Serum Glucose 232 H 74-106 mg/dL Labs and/or images reviewed: Labs reviewed by me, Image(s) reviewed by me Problem List/Assessment/Plan Problem List/Assessment/Plan # Acute left paresthesia, gait disturbance,Likely Acute ischemic stroke of thalamus caudate nucleus # Polyneuropathy likely due to stroke versus type 2 DM # Chronic left eyelid ptosis - monitoring on telemetry unit - CT head and carotid Doppler showed no acute abnormalities. - MRI brain showed 2 small acute or subacute ischemic changes in left thalamus and left caudate - currently on aspirin 81 mg and Plavix 75 mg, Lipitor 40 mg - ordered lipid panel, echocardiogram, pending - neurology hr business partner consultant evaluated the patient advised to continue current management along with the physical therapy # Hypertensive emergency - continuously monitoring - allowing permissive hypertension due to stroke - resumed home meds # Uncontrolled type 2 DM with the HbA1c 11.6 - continuously monitoring - currently on moderate ISS - counseled regarding lifestyle modifications including diet and exercise # 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 Cuevas, patient and nurse Plan discussed with: Patient My Orders My Orders Orders - ABDULAZIZ KURTZ Procedure Category Date Status Time Losartan Tablet PHA 10/30/24 Logged (Cozaar Tablet) 10:00 Pt Request For Service PT 10/29/24 Logged 13:45 Lipid Panel LAB 10/29/24 In Process 13:45 * Wound Consult CONS 10/29/24 Transmitted Wound Culture W/ Gs BRADLEY 10/29/24 Logged 13:45 Ergocalciferol PHA 10/29/24 Logged (Vitamin D 50,000 14:00 Basic Metabolic Panel LAB 10/30/24 Verified 04:00 Complete Blood Count LAB 10/30/24 Verified 04:00 Date of Service: Oct 29, 2024 Billing Provider: JACLYN CUEVAS MD Common Visit Codes: [id number] INP/OBS CARE(HIGH) Secondary Visit Codes: [id number]-[id number] CARE PLAN 30 MINUTES ABDULAZIZ KURTZ Oct 29, 2024 14:09 JACLYN CUEVAS MD Oct 30, 2024 18:17
[2024-10-29 14:21] LABS: HDL Cholesterol 50 mg/dL (40-59)
[2024-10-29 14:24] LABS: Cholesterol 363 mg/dL (< 200); Triglycerides 652 mg/dL (< 150)
[2024-10-29] MEDS: ERGOCALCIFEROL 50,000 UNIT(1.25MG) CAP PO SCH (14:54)
[2024-10-29 20:00] VITALS: PULSE 77; RESP 18; O2SAT 97
[2024-10-29 22:00] VITALS: BP 170/88; PULSE 77; RESP 18; TEMP 97.5; O2SAT 97
[2024-10-29] MEDS: ATORVASTATIN 20 MG TAB PO SCH (22:00)
--- NOTE | 2024-10-29 22:49 | DVHSR ---
APPROVED REPORT EXAM: Two-dimensional and M-mode echocardiogram with Doppler and color Doppler. Blood Pressure: 100/37 mmHg INDICATION Right sided numbness Rule out valvular heart disease RISK FACTORS Obesity: Height: 5'6", Weight: 230 DIMENSIONS LVDd4.1 (3.8-5.7cm)LA (2D)4.3 (1.9-4.0cm)Aortic Root3.1 (2.0-3.7cm) LVDs2.7 (2.5-4.0cm)LA (MM) (1.9-4.0cm)Aortic Cusp Exc1.5 (1.5-2.0cm) EF (%) 60.0 (55-70%)Rt. Atrium3.6 (1.9-4.0cm)Asc. Aorta cm IVSd1.4 (0.7-1.1cm)RV (D)3.4 (1.8-2.4cm) PWd1.3 (0.7-1.1cm) Mitral Valve MitralMitral Stenosis E wave0.49m/sMV Mean GR.mmHg A wave0.90m/sMV Peak GR.mmHg E/A ratio0.52D MVAcm2 DECEL [id number] 1/2 Timems Aortic Valve Aortic ValveAortic Stenosis V10.73m/Magalie Mean GR.3mmHg V21.21m/Magalie Peak GR.6mmHg LVOT Diameter2.1 (1.8-2.4cm)Doppler AVA2.09cm2 Pulmonic Valve V20.80m/s Conclusion Normal left ventricular size and dimension. Normal left ventricular systolic function estimated ejec tion fraction 55%. There is a grade 1 diastolic dysfunction. Normal right ventricular size and dimension. Normal right ventricular systolic function. Normal biatrial size and dimension. Normal aortic valve structure and function. Normal mitral valve structure and function. Normal tricuspid valve structure and function. The pulmonary valve is grossly normal. No pericardial effusion.
[2024-10-30] VITALS (11 sets, daily range): BP systolic 129–173; BP diastolic 50–104; PULSE 68–81; RESP 16–20; TEMP 97.5–98.3; O2SAT 93–100
[2024-10-30] MEDS: PANTOPRAZOLE 40 MG TAB PO SCH (06:00)
[2024-10-30 06:51] LABS: Basophils # (auto) 0 10 ^3/uL (0-0.2); Basophils % (auto) 0.7 % (0.0-2.0); Eosinophils # (auto) 0.1 10 ^3/uL (0-0.8); Eosinophils % (auto) 2.5 % (0.0-7.0); Hematocrit 39.9 % (36.0-46.0); Hemoglobin 13.6 g/dL (12.2-16.2); Lymphocytes # (auto) 2.4 10 ^3/uL (0.4-5.4); Lymphocytes % (auto) 39.6 % (10.0-50.0); Mean Corpuscular Hemoglobin 30.5 pg (28.0-32.0); Mean Corpuscular Hgb Conc. 34.2 g/dL (32.0-36.0); Mean Corpuscular Volume 89.4 fL (80.0-100.0); Monocytes # (auto) 0.5 10 ^3/uL (0-1.3); Monocytes % (auto) 8.2 % (0.0-12.0); Neutrophils # (auto) 2.9 10 ^3/uL (1.6-8.6); Nucleated Red Blood Cells % 0.2 %; Platelet Count (auto) 294 10^3/uL (140-450); Red Blood Cells 4.47 10^6/uL (4.0-5.20); Red Cell Distribution Width 13.7 % (11.8-14.3)
[2024-10-30 06:57] LABS: Chloride 105 mmol/L (98-107); Sodium 140 mmol/L (136-145)
[2024-10-30 06:58] LABS: Anion Gap 10 (5-15); Carbon Dioxide 25 mmol/L (20-31)
[2024-10-30 06:59] LABS: Calcium 9.6 mg/dL (8.7-10.4)
[2024-10-30 07:04] LABS: Blood Urea Nitrogen 24 mg/dL (9-23); Glucose 178 mg/dL (74-106)
--- NOTE | 2024-10-30 09:24 | DVHPN2 ---
Progress Note - Dictate Date Seen: Oct 30, 2024 Medical Necessity Reason Pt with a Central, PICC or Fol: No Subjective Ms. Manrique is a 59 years old right-handed female with a history of hypertension, diabetes, glaucoma, left eye blindness, obesity, she came to the [facility] on 10/28/2024 with a chief company of right-sided numbness I have seen examined the patient I have talked to her nurse, she was doing fine, no new complaints Plasma alcohol, 10/28/2024: < 3 CBC, 10/29/2024: Unremarkable BUN/CR, 10/29/2024: 19/1.31 Liver function tests, 10/29/2024: Unremarkable TG/HDL/LDL/HDL, 10/29/2024: 352/363//50 Vitamin B12, 10/29/2024: 990 Folic acid, 10/29/2024: 15.45 TSH, 10/29/2024: 2.84 Echocardiogram, 10/29/2024: Normal left ventricular size and dimension. Normal left ventricular systolic function estimated ejection fraction 55%. There is a grade 1 diastolic dysfunction. Normal right ventricular size and dimension. Normal right ventricular systolic function. Normal biatrial size and dimension. Normal aortic valve structure and function. Normal mitral valve structure and function. Normal tricuspid valve structure and function. The pulmonary valve is grossly normal. No pericardial effusion. Carotid Doppler, 10/28/2024: 1. No hemodynamically significant stenosis noted in the right carotid system. 2. No hemodynamically significant stenosis noted in the left carotid system CT head, 10/28/2024: 1. No CT evidence of acute intracranial abnormality. 2. Right ethmoid air cell opacities MRI head, 10/20/2024: 2 small areas of acute / subacute ischemia in the left thalamus and left caudate. Clinical correlation and continued follow-up is recommended. Consider embolic sources vital signs Vital Sign Date Time Temp Pulse Resp B/P (MAP) Pulse Ox O2 Delivery O2 Flow Rate FiO2 10/30/24 08:43 98.0 71 16 155/81 (105) 93 98.0 10/29/24 20:00 Room Air* 0 21 medications Current Medications Medications Dose Ordered Sig/Mesfin Route Start Time Stop Time Status Last Admin Dose Admin Ondansetron HCl 4 mg Q4HP PRN IV 10/28/24 20:45 Docusate Sodium 100 mg BIDPRN PRN PO 10/28/24 20:45 Acetaminophen 650 mg Q6HP PRN PO 10/28/24 20:45 Morphine Sulfate 2 mg Q4HPRN PRN IV 10/28/24 20:45 Enoxaparin Sodium 40 mg DAILY SC 10/28/24 20:45 10/29/24 09:20 40 MG Nitroglycerin 0.4 mg Q5MINP PRN SL 10/28/24 20:45 Morphine Sulfate 2 mg Q30M PRN IV 10/28/24 20:45 Diagnostic Test (Pha) 1 strip ACHS 10/28/24 22:00 10/30/24 06:36 1 STRIP Insulin Human Regular HS SC 10/28/24 22:00 10/29/24 22:00 4 UNITS Insulin Human Regular AC SC 10/29/24 07:00 10/30/24 06:37 6 UNITS Dextrose 50 ml UD PRN IV 10/28/24 20:45 Atorvastatin Calcium 40 mg HS PO 10/29/24 22:00 10/29/24 22:00 40 MG Aspirin 81 mg DAILY PO 10/29/24 10:00 10/29/24 09:19 81 MG Clopidogrel Bisulfate 75 mg DAILY PO 10/29/24 10:00 10/29/24 09:20 75 MG Pantoprazole Sodium 40 mg DAILY@0600 PO 10/30/24 06:00 10/30/24 06:00 40 MG Lorazepam 1 mg ONCE PRN IV 10/29/24 10:00 Losartan Potassium 50 mg DAILY PO 10/30/24 10:00 Ergocalciferol 50,000 unit Q7D PO 10/29/24 14:00 10/29/24 14:54 50,000 UNIT objective General: the patient is well developed and nourished. No acute distress. MENTAL STATUS: Awake and alert. Oriented to person, place, time and general circumstances. Able to give personal history. The patient is aware of recent events SPEECH, LANGUAGE, HIGHER CORTICAL FUNCTION: no aphasia or dysathria. CRANIAL NERVES: Intact visual schulz to confrontation. No light perception in the left eye. Pupils are equal, round and reactive. EOMs full and conjugate. No nystagmus. Facial sensation is diminished in the right face. Mandibular strength intact. Ptosis in the left eye, without associated abnormal vascular dilatation and skin secretion. Facial muscles symmetrical and strength intact. SENSATION: Sensation to touch and pinprick is diminished in the right arm leg, distally in the lower extremities. Not care if there diminished pinprick light touch in the left leg. MOTOR: Normal tone in the upper and lower extremity. Normal muscle bulk. No fasciculations. No abnormal movements or posturing. Muscle strength of the major groups in the extremities is 5/5, slightly weaker in the right arm REFLEXES: Deep tendon reflexes are symmetrical. No pathological reflexes. CEREBELLAR/COORDINATION: Finger to nose is normal bilaterally. GAIT/STATION: deferred. laboratory and microbiology Laboratory Tests 10/30/24 05:57 Test 10/30/24 05:57 Range/Units Serum Glucose 178 H 74-106 mg/dL Problem List Acute left paresthesia, gait disturbance, secondary to acute stroke Acute left basal ganglia stroke Polyneuropathy Chronic left eyelid ptosis Assessment/Plan Monitoring Supportive treatment Telemetry Aspirin 81 mg daily Plavix 75 mg for 21 days Lipitor 40 mg daily GI prophylaxis DVT prophylaxis Up to chair Physical therapy Foot care Daily foot inspection Soft, white and protect she was only Follow up with her doctor on discharge This medical document was created using an electronic medical record system with [employer] computerized dictation system. Although this document has been carefully reviewed, there may still be some phonetic and typographical errors. These areas are purely typographical due to imperfections of the software programs, and do not reflect any compromise in the patient's medical care Prognosis poor Plan discussed with: Other Total Time (mins): 35 JUNIOR MONIQUE MD Oct 30, 2024 09:24
[2024-10-30] MEDS: INSULIN LANTUS (GLARGINE) 1 /0.01ml (100units/ml) SC SCH (09:45)
[2024-10-30] MEDS: CLOPIDOGREL BISULFATE 75 MG TAB PO SCH (10:23)
[2024-10-30] MEDS: LOSARTAN POTASSIUM 50 MG TAB PO SCH (10:25)
--- NOTE | 2024-10-30 12:08 | DVH ---
CLINICAL INDICATION: non healing ulcer TECHNIQUE: XY R FOOT 2 VIEW XRAY Comparison: None FINDINGS/IMPRESSION: There is no evidence of acute fracture or dislocation. 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 Diffuse soft tissue swelling. The alignment is anatomical. There is no radiopaque foreign body.
--- NOTE | 2024-10-30 13:21 | DVHINCON2 ---
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 Patient reported that she had this numbness on the right side of the face, right lower extremity that started around 9:00 a.m. in the morning. Patient reported she could not feel on the right side of the face and right upper and lower extremity but she could move the right upper and lower extremity. Patient also reported some headache, intermittent, 8/10 in severity and also reported some dizziness and vertigo which was in the morning but it has subsided now. Patient also reported that she had a fall on October 20 and hit her head. patient denies Any chest pain, shortness of breath, acute constipation or diarrhea, acute joint redness or swelling, dysarthria. Patient reported she had a fall on October 20, 2024 and hit her head and right shoulder. Patient reported she was at [facility] but residential mortgage underwriter could not find the documentation from before. Arrival blood pressure was elevated 190/84, 80, respiration 14. Initial lab workup revealed hyperkalemia with a potassium 5.6, corrected, serum creatinine mildly elevated 1.08, blood sugar elevated 310, negative for troponin I BNP/WBC/hemoglobin/platelet/sodium within normal limit. CT head- No CT evidence of acute intracranial abnormality. Right ethmoid air cell opacities. Carotid Doppler revealed-1. No hemodynamically significant stenosis noted in the right or left carotid system. Past Medical History See H&P Past Surgical History See H&P Family History: Diabetes mellitus G8 MOTHER G8 FATHER Hypertension G8 MOTHER G8 FATHER Allergies: Coded Allergies: NO KNOWN ALLERGIES (Unverified , 10/28/24) Home Meds Reported Medications Cholecalciferol (VITAMIN D3) 2,000 Unit Tab, 2000 UNIT PO DAILY for 100 Days, #100 10/29/24 Loratadine (Claritin) 10 Mg Tab, 1 TAB PO DAILY for 90 Days, #90 10/29/24 Insulin Aspart (Novolog Flexpen Relion) 100 Unit/Ml Inj, 10 UNIT SC BID for 75 Days, #15 10/29/24 Metformin Hydrochloride (Metformin Hcl) 1,000 Mg Tab, 1 TAB PO BID for 90 Days, #180 10/29/24 Atorvastatin Calcium (Lipitor) 20 Mg Tab, 1 TAB PO DAILY for 90 Days, #90 10/29/24 Fenofibrate (Fenofibrate Micronized) 200 Mg Cap, 1 CAP PO DAILY for 100 Days, #100 10/29/24 Semaglutide (Ozempic) 2 Mg/3 Ml Inj, 0.25 MG SC QWEEKLY for 56 Days, #3 10/29/24 Insulin Glargine (Basaglar Kwikpen) 100 Unit/Ml Inj, 10 UNIT SC HS for 75 Days, #9 10/29/24 Dapagliflozin Propanediol (Farxiga) 10 Mg Tab, 1 TAB PO DAILY for 90 Days, #90 10/29/24 Losartan Potassium (Losartan Potassium) 50 Mg Tab, 1 TAB PO DAILY for 90 Days, #90 10/29/24 Dorzolamide-Timolol (Dorzolamide Hcl/Timolol M) 1 Ml Eloisa, 1 DROP LEFTEYE BID for 60 Days, #10 10/29/24 Carboxymethylcellulose Sodium (Refresh Tears) 0.5 % Devin, 1-2 DROP EACHEYE QID for 30 Days, #15 10/29/24 Current Medications Current Medications Medications (Trade) Dose Ordered Sig/Mesfin Route PRN Reason Start Time Stop Time Status Last Admin Atorvastatin Calcium (Lipitor) 40 mg HS PO 10/29/24 22:00 10/29/24 22:00 Pantoprazole Sodium (Protonix Tablet) 40 mg DAILY@0600 PO 10/30/24 06:00 10/30/24 06:00 Losartan Potassium (Cozaar Tablet) 50 mg DAILY PO 10/30/24 10:00 10/30/24 10:25 Ergocalciferol (Vitamin D 50,000 Unit) 50,000 unit Q7D PO 10/29/24 14:00 10/29/24 14:54 Clopidogrel Bisulfate (Plavix) 75 mg DAILY PO 10/30/24 10:00 11/18/24 23:00 10/30/24 10:23 Insulin Glargine (Lantus) 10 units QAM SC 10/30/24 09:45 10/30/24 09:45 Vital Signs Vital Signs Date Time Temp Pulse Resp B/P (MAP) Pulse Ox O2 Delivery O2 Flow Rate FiO2 10/30/24 10:25 155/81 10/30/24 08:43 98.0 71 16 93 98.0 10/30/24 08:00 Room Air* 0 21 Physical Exam DERMATOLOGIC EXAM: - Skin is dry and cool to the touch dry bilaterally. - Nails 1-5 of the bilateral foot are thickened, discolored, dystrophic, and tender to palpate with subungual debris - Hair loss noted to bilateral feet Wound #1: Location: Right lateral foot Measurements: Length 0.5 cm x width 0.5 cm x depth 0.5 cm. Wound margins: Hyperkeratotic. Wound base: Full thickness. General Appearance: Healthy and bleeding. Probes to Bone: No Purulent drainage: No Serous drainage: No Erythema: Absent VASCULAR EXAM: - DP and PT pulses are palpable bilaterally. - PHYSICAL AERODYNAMICIST is brisk to all digits. - Feet are cool to touch compared to lower legs bilaterally. NEUROLOGIC EXAM: - Normal light touch sensation to the superficial peroneal, deep peroneal, sural, saphenous, and tibial nerve branches. - Protective sensation is diminished as tested with a 5.07 10g [place] bilaterally. MUSCULOSKELETAL EXAM: - No gross deformities - Muscle strength is 5/5 and active motion is pain-free and symmetrical bilaterally - No pain or crepitation with passive range of motion bilaterally to all major pedal joints Labs/Diagnostic Data Labs Test 10/30/24 05:57 10/29/24 22:18 10/29/24 05:21 10/28/24 23:12 Range/Units White Blood Count 6.0 4.4-10.8 10^3/uL Red Blood Count 4.47 4.0-5.20 10^6/uL Hemoglobin 13.6 12.2-16.2 g/dL Hematocrit 39.9 # 36.0-46.0 % Mean Corpuscular Volume 89.4 80.0-100.0 fL Mean Corpuscular Hemoglobin 30.5 28.0-32.0 pg Mean Corpuscular Hemoglobin Concent 34.2 32.0-36.0 g/dL Red Cell Distribution Width 13.7 11.8-14.3 % Platelet Count 294 140-450 10^3/uL Mean Platelet Volume 8.8 6.9-10.8 fL Neutrophils (%) (Auto) 49.0 37.0-80.0 % Lymphocytes (%) (Auto) 39.6 10.0-50.0 % Monocytes (%) (Auto) 8.2 0.0-12.0 % Eosinophils (%) (Auto) 2.5 0.0-7.0 % Basophils (%) (Auto) 0.7 0.0-2.0 % Neutrophils # (Auto) 2.9 1.6-8.6 10 ^3/uL Lymphocytes # (Auto) 2.4 0.4-5.4 10 ^3/uL Monocytes # (Auto) 0.5 0-1.3 10 ^3/uL Eosinophils # (Auto) 0.1 0-0.8 10 ^3/uL Basophils # (Auto) 0 0-0.2 10 ^3/uL Nucleated Red Blood Cells 0.2 % Sodium Level 140 136-145 mmol/L Potassium Level 4.0 3.5-5.1 mmol/L Chloride Level 105 98-107 mmol/L Carbon Dioxide Level 25 20-31 mmol/L Anion Gap 10 5-15 Blood Urea Nitrogen 24 H 9-23 mg/dL Creatinine 1.33 H 0.550-1.02 mg/dL Glomerular Filtration Rate Calc 46 >90 mL/min BUN/Creatinine Ratio 18.0 10.0-20.0 Serum Glucose 178 H 74-106 mg/dL Calcium Level 9.6 8.7-10.4 mg/dL POC Glucose 218 H 70-106 mg/dl D-Dimer, Quantitative 1.74 H 0.0-0.49 mg/L FEU Hemoglobin A1c 11.6 H <5.7 % A1C Total Bilirubin 0.4 0.2-1.0 mg/dL Aspartate Amino Transferase (AST) 37 13-40 U/L Alanine Aminotransferase (ALT) 26 7-40 U/L Alkaline Phosphatase 112 46-116 U/L Total Protein 6.9 5.7-8.2 g/dL Albumin 4.0 3.2-4.8 g/dL Triglycerides Level 652 H < 150 mg/dL Cholesterol Level 363 H < 200 mg/dL LDL Cholesterol < 100 mg/dL HDL Cholesterol 50 40-59 mg/dL Vitamin B12 Level 990 H 211-911 pg/mL Vitamin D 25-Hydroxy 15.9 L 30.0-100 ng/mL Folic Acid 15.45 >5.38 ng/mL Magnesium Level 1.8 1.6-2.6 mg/dL Thyroid Stimulating Hormone (TSH) 2.84 0.55-4.78 uIU/mL Plasma/Serum Blood Alcohol < 3.0 <10 mg/dL Test 10/28/24 16:30 10/28/24 14:06 Range/Units Troponin I High Sensitivity 3 L </=34 ng/L Prothrombin Time 10.7 9.3-11.8 sec Prothrombin Time INR 1.01 0.9-1.15 Activated Partial Thromboplast Time 27.8 24.5-34.5 SEC B-Type Natriuretic Peptide 80.37 0-100 pg/mL Problems(with codes): (1) Disequilibrium (2) Right sided numbness Plan/Recommendation ASSESSMENT: Patient is a _ year old who was seen in clinic for DM ulcer care PLAN: - The patients chart was reviewed, clinical findings were discussed with the patient, the etiologies of the conditions were discussed in detail, and a treatment plan was agreed to at this time, with both oral and written instructions provided. - discussed with the patient that the wound appears to be superficial at this point - no surgical indication at this point - patient can follow up with me as an outpatient to continue to improve the wound - can be dressed with a Betadine gauze - discussed that the plantar wound is due to pressure and we will need to offload in the future All questions were answered and concerns addressed to the patient's satisfaction. The patient was given the phone number to the clinic and was told how to make contact with the clinic should any concerns or questions arise. Patient understands that if any questions or concerns arise prior to the next appointment, we should be contacted immediately. FOLLOW-UP: Patient will follow up with me in 1 week for continued wound care Plan discussed with: Patient Date of Service: Oct 30, 2024 Billing Provider: RACHEL SINGH DPM Common Visit Codes: [id number] INP/OBS CARE (MOD) RACHEL SINGH DPM Oct 30, 2024 13:20
--- NOTE | 2024-10-30 16:12 | DVHPNRES ---
Progress Note Date Seen: Oct 30, 2024 Resident Creating Document: ABDULAZIZ KURTZ RESIDENT Medical Necessity Reason Pt with a Central, PICC or Fol: No Subjective Review of Systems GERARD ADEN is a 59-year-old female with a PMH of type 2 DM, HTN, CVA presented to the ED with the chief complaints right-sided facial and upper and lower extremity numbness Patient seen and examined at the bedside. Patient reported improvement in her symptoms since admission. due to chronic nonhealing ulcer on the right plantar surface, consulted Podiatry for the evaluation, advised outpatient follow up and no surgical indicationn for now as wound is superficial. PT evaluated the patient, advised home health with physical therapy and cane for ambulating, consulted social services technician Patient reports: No new complaints, Feels better Objective vital signs Vital Sign Date Time Temp Pulse Resp B/P (MAP) Pulse Ox O2 Delivery O2 Flow Rate FiO2 10/30/24 13:00 98.3 76 20 152/104 (120) 94 98.3 10/30/24 08:00 Room Air* 0 21 medications Current Medications Medications Dose Ordered Sig/Mesfin Route Start Time Stop Time Status Last Admin Dose Admin Ondansetron HCl 4 mg Q4HP PRN IV 10/28/24 20:45 Docusate Sodium 100 mg BIDPRN PRN PO 10/28/24 20:45 Acetaminophen 650 mg Q6HP PRN PO 10/28/24 20:45 Morphine Sulfate 2 mg Q4HPRN PRN IV 10/28/24 20:45 Enoxaparin Sodium 40 mg DAILY SC 10/28/24 20:45 10/30/24 10:25 40 MG Nitroglycerin 0.4 mg Q5MINP PRN SL 10/28/24 20:45 Morphine Sulfate 2 mg Q30M PRN IV 10/28/24 20:45 Diagnostic Test (Pha) 1 strip ACHS 10/28/24 22:00 10/30/24 11:33 1 STRIP Insulin Human Regular HS SC 10/28/24 22:00 10/29/24 22:00 4 UNITS Insulin Human Regular AC SC 10/29/24 07:00 10/30/24 11:39 6 UNITS Dextrose 50 ml UD PRN IV 10/28/24 20:45 Atorvastatin Calcium 40 mg HS PO 10/29/24 22:00 10/29/24 22:00 40 MG Aspirin 81 mg DAILY PO 10/29/24 10:00 10/30/24 10:24 81 MG Pantoprazole Sodium 40 mg DAILY@0600 PO 10/30/24 06:00 10/30/24 06:00 40 MG Lorazepam 1 mg ONCE PRN IV 10/29/24 10:00 Losartan Potassium 50 mg DAILY PO 10/30/24 10:00 10/30/24 10:25 50 MG Ergocalciferol 50,000 unit Q7D PO 10/29/24 14:00 10/29/24 14:54 50,000 UNIT Clopidogrel Bisulfate 75 mg DAILY PO 10/30/24 10:00 11/18/24 23:00 10/30/24 10:23 75 MG Insulin Glargine 10 units QAM SC 10/30/24 09:45 10/30/24 09:45 10 UNITS Examination General Appearance: Alert, Oriented X3, Cooperative, Not in acute distress HEENT: Atraumatic, Mucous membranes moist/pink Respiratory: Clear to auscultation, Normal air movement, No added sounds Cardiovascular: Regular rate, Normal S1, Normal S2, No murmurs Abdominal: Active bowel sounds, Soft, no distention, no tenderness Extremities:Chronic nonhealing wound on RLE palmar surface . No edema, Normal pulses, No tenderness/swelling Skin: Chronic nonhealing wound on RLE palmar surface Neuro: Normal speech, motor deficits none but Sensation to touch and pinprick is diminished distally in the lower extremities. 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 - MRI brain showed 2 small acute or subacute ischemic changes in left thalamus and left caudate - currently on aspirin 81 mg and Plavix 75 mg, Lipitor 40 mg - ordered lipid panel, echocardiogram, pending - neurology strategic consultant evaluated the patient advised to continue current management along with the physical therapy - PT evaluated the patient, advised home health with physical therapy and cane for ambulating, consulted social services technician # Hypertensive emergency - continuously monitoring - allowing permissive hypertension due to stroke - resumed home meds # Uncontrolled type 2 DM with the HbA1c 11.6 - continuously monitoring - currently on moderate ISS - counseled regarding lifestyle modifications including diet and exercise # 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 # Vit D deficiency - Repleting # SERAFIN likely VM - monitor lab Lovenox for now Protonix Cardiac diet Reconciled home meds Goals of care discussed with the patient for more than 27 minutes: Full code status Case management discussed with Dr. Cuevas, patient and nurse. PT evaluated the patient, advised home health with physical therapy and cane for ambulating, consulted social services technician Plan discussed with: Patient My Orders My Orders Orders - ABDULAZIZ KURTZ Procedure Category Date Status Time Hepatitis B Surface LAB 10/30/24 In Process Antigen 04:00 Hepatitis C Antibody LAB 10/30/24 In Process 04:00 * Veterinary Meat Inspector CONS 10/29/24 Transmitted Consult 19:16 Insulin Lantus PHA 10/30/24 In Process (Glargine) (Lantus) 09:45 R Foot 2 View Xray XY 10/30/24 Resulted 11:27 *Podiatry Consult CONS 10/30/24 Transmitted Musson([facility]) 11:27 * Veterinary Meat Inspector CONS 10/30/24 Transmitted Consult Date of Service: Oct 30, 2024 Billing Provider: JACLYN CUEVAS MD Common Visit Codes: [id number] INP/OBS CARE(HIGH) ABDULAZIZ KURTZ RESIDENT Oct 30, 2024 16:12 JACLYN CUEVAS MD Oct 30, 2024 18:17
[2024-10-30] MEDS: ACETAMINOPHEN 325 MG TAB PO PRN (23:54)
[2024-10-31 01:00] VITALS: BP 162/82; PULSE 72; RESP 19; TEMP 98.2; O2SAT 96
[2024-10-31] MEDS ORDERED: hydrALAZINE HCL 20 MG/ML VL IV PRN (01:15)
[2024-10-31 01:25] VITALS: BP 140/74; PULSE 73
[2024-10-31 05:00] VITALS: BP 141/65; PULSE 69; RESP 19; TEMP 98.6; O2SAT 96
[2024-10-31 06:12] LABS: Basophils # (auto) 0 10 ^3/uL (0-0.2); Basophils % (auto) 0.6 % (0.0-2.0); Eosinophils # (auto) 0.1 10 ^3/uL (0-0.8); Eosinophils % (auto) 2.1 % (0.0-7.0); Hematocrit 38.6 % (36.0-46.0); Hemoglobin 13.1 g/dL (12.2-16.2); Lymphocytes # (auto) 2.5 10 ^3/uL (0.4-5.4); Lymphocytes % (auto) 41.9 % (10.0-50.0); Mean Corpuscular Hemoglobin 30.4 pg (28.0-32.0); Mean Corpuscular Hgb Conc. 33.9 g/dL (32.0-36.0); Mean Corpuscular Volume 89.6 fL (80.0-100.0); Monocytes # (auto) 0.5 10 ^3/uL (0-1.3); Monocytes % (auto) 8.6 % (0.0-12.0); Neutrophils # (auto) 2.8 10 ^3/uL (1.6-8.6); Neutrophils % (auto) 46.8 % (37.0-80.0); Platelet Count (auto) 289 10^3/uL (140-450); Red Blood Cells 4.31 10^6/uL (4.0-5.20); Red Cell Distribution Width 13.3 % (11.8-14.3); White Blood Cell 5.9 10^3/uL (4.4-10.8)
[2024-10-31 06:23] LABS: Anion Gap 7 (5-15); Carbon Dioxide 27 mmol/L (20-31); Chloride 107 mmol/L (98-107); Potassium 4.1 mmol/L (3.5-5.1); Sodium 141 mmol/L (136-145)
[2024-10-31 06:24] LABS: Calcium 9.6 mg/dL (8.7-10.4)
[2024-10-31 06:29] LABS: BUN/Creatinine Ratio 17.8 (10.0-20.0)
[2024-10-31 06:36] LABS: Blood Urea Nitrogen 24 mg/dL (9-23); Glucose 139 mg/dL (74-106)
[2024-10-31 08:00] VITALS: PULSE 70
[2024-10-31 09:00] VITALS: BP 159/74; PULSE 72; RESP 20; TEMP 98; O2SAT 95
[2024-10-31 11:22] LABS: Hepatitis B Surface Antigen Negative (Negative)
[2024-10-31 11:42] LABS: Hepatitis C Antibody Negative (Negative)
--- NOTE | 2024-10-31 12:52 | DVHDSRES ---
Discharge Summary Date of Admission Resident Creating Document: ABDULAZIZ KURTZ RESIDENT Oct 28, 2024 at 20:34 Date of Discharge: Oct 31, 2024 Admitting Diagnosis ACUTE OR SUBACUTE ISCHEMIC STROKE Labs/Diagnostic Data: Laboratory Results Test 10/31/24 06:04 10/31/24 05:24 10/30/24 05:57 10/29/24 05:21 POC Glucose 155 mg/dl (70-106) White Blood Count 5.9 10^3/uL (4.4-10.8) Red Blood Count 4.31 10^6/uL (4.0-5.20) Hemoglobin 13.1 g/dL (12.2-16.2) Hematocrit 38.6 % (36.0-46.0) Mean Corpuscular Volume 89.6 fL (80.0-100.0) Mean Corpuscular Hemoglobin 30.4 pg (28.0-32.0) Mean Corpuscular Hemoglobin Concent 33.9 g/dL (32.0-36.0) Red Cell Distribution Width 13.3 % (11.8-14.3) Platelet Count 289 10^3/uL (140-450) Mean Platelet Volume 8.8 fL (6.9-10.8) Neutrophils (%) (Auto) 46.8 % (37.0-80.0) Lymphocytes (%) (Auto) 41.9 % (10.0-50.0) Monocytes (%) (Auto) 8.6 % (0.0-12.0) Eosinophils (%) (Auto) 2.1 % (0.0-7.0) Basophils (%) (Auto) 0.6 % (0.0-2.0) Neutrophils # (Auto) 2.8 10 ^3/uL (1.6-8.6) Lymphocytes # (Auto) 2.5 10 ^3/uL (0.4-5.4) Monocytes # (Auto) 0.5 10 ^3/uL (0-1.3) Eosinophils # (Auto) 0.1 10 ^3/uL (0-0.8) Basophils # (Auto) 0 10 ^3/uL (0-0.2) Nucleated Red Blood Cells 0.0 % Sodium Level 141 mmol/L (136-145) Potassium Level 4.1 mmol/L (3.5-5.1) Chloride Level 107 mmol/L (98-107) Carbon Dioxide Level 27 mmol/L (20-31) Anion Gap 7 (5-15) Blood Urea Nitrogen 24 mg/dL (9-23) Creatinine 1.35 mg/dL (0.550-1.02) Glomerular Filtration Rate Calc 45 mL/min (>90) BUN/Creatinine Ratio 17.8 (10.0-20.0) Serum Glucose 139 mg/dL (74-106) Calcium Level 9.6 mg/dL (8.7-10.4) Hepatitis B Surface Antigen Negative (Negative) Hepatitis C Antibody Negative (Negative) D-Dimer, Quantitative 1.74 mg/L FEU (0.0-0.49) Hemoglobin A1c 11.6 % A1C (<5.7) Total Bilirubin 0.4 mg/dL (0.2-1.0) Aspartate Amino Transferase (AST) 37 U/L (13-40) Alanine Aminotransferase (ALT) 26 U/L (7-40) Alkaline Phosphatase 112 U/L (46-116) Total Protein 6.9 g/dL (5.7-8.2) Albumin 4.0 g/dL (3.2-4.8) Triglycerides Level 652 mg/dL (< 150) Cholesterol Level 363 mg/dL (< 200) LDL Cholesterol mg/dL (< 100) HDL Cholesterol 50 mg/dL (40-59) Vitamin B12 Level 990 pg/mL (211-911) Vitamin D 25-Hydroxy 15.9 ng/mL (30.0-100) Folic Acid 15.45 ng/mL (>5.38) Test 10/28/24 23:12 10/28/24 16:30 10/28/24 14:06 Magnesium Level 1.8 mg/dL (1.6-2.6) Thyroid Stimulating Hormone (TSH) 2.84 uIU/mL (0.55-4.78) Plasma/Serum Blood Alcohol < 3.0 mg/dL (<10) Troponin I High Sensitivity 3 ng/L (</=34) Prothrombin Time 10.7 sec (9.3-11.8) Prothrombin Time INR 1.01 (0.9-1.15) Activated Partial Thromboplast Time 27.8 SEC (24.5-34.5) B-Type Natriuretic Peptide 80.37 pg/mL (0-100) Other Laboratory Tests 10/31/24 05:24 Brief Hx & Hospital Course: GERARD ADEN is a 59-year-old female with a PMH of type 2 DM, HTN, CVA presented to the ED with the chief complaints right-sided facial and upper and lower extremity numbness since yesterday. Patient reported symptoms has started yesterday morning 9 a.m., numbness in the right side of face right upper and bilateral lower extremities associated with headache which is 8 of 10 in severity, dizziness. Patient reported history of fall on October 20 and hit her head. patient reported folds ago she had tingling and numbness and developed a left eye ptosis and left eye blindness. On my assessment patient denies Fever, nausea, vomiting, chest pain, palpitations, diaphoresis, abdominal pain, diarrhea, constipation and other acute associated symptoms. Patient was diagnosed as acute or subacute ischemic stroke which required hospital admission for further evaluation and management. Initial CT head and carotid Doppler showed no acute abnormalities. MRI brain showed 2 small acute or subacute ischemic changes in left thalamus and left caudate, neurology email production consultant evaluated the patient advised to continue aspirin, Plavix, Lipitor along with supportive treatment. Continuously monitored on telemetry unit. Physical therapy evaluated the patient and advised home health with physical therapy and cane for the ambulating. Due to hypertensive emergency patient was continuously monitored. Patient have uncontrolled type 2 diabetes mellitus with the HbA1c 11.6 hence patient was continuously monitored for blood glucose and on moderate insulin sliding scale along with this patient was counseled regarding lifestyle modifications. Due to chronic nonhealing diabetic foot ulcer of the right foot we consulted Podiatry, advised no surgical indication for now and to follow up on outpatient. Due to SERAFIN continuously monitor the lab and given foods as needed. Patient condition was improved, hemodynamically stable and in condition to be discharged to home with health services for physical therapy. Plan discussed with the patient and agreed to the plan. Patient was advised about healthy lifestyle habits including diet, exercise and to follow up with PCP. General Appearance: Alert, Oriented X3, Cooperative, Not in acute distress HEENT: Atraumatic, Mucous membranes moist/pink Respiratory: Clear to auscultation, Normal air movement, No added sounds Cardiovascular: Regular rate, Normal S1, Normal S2, No murmurs Abdominal: Active bowel sounds, Soft, no distention, no tenderness Extremities:Chronic nonhealing wound on RLE palmar surface . No edema, Normal pulses, No tenderness/swelling Skin: Chronic nonhealing wound on RLE palmar surface Neuro: Normal speech, motor deficits none but Sensation to touch and pinprick is diminished distally in the lower extremities. Psych/Mental Status: Mental status NL, Mood NL Nurse was there as Farm Loan Representative during examination Operations or Procedures CT head and carotid Doppler showed no acute abnormalities AND NO SIGNIFICANT CAROTID STENOSIS MRI brain showed 2 small acute or subacute ischemic changes in left thalamus and left caudate ECHO Conclusion Normal left ventricular size and dimension. Normal left ventricular systolic function estimated ejection fraction 55%. There is a grade 1 diastolic dysfunction. Normal right ventricular size and dimension. Normal right ventricular systolic function. Normal biatrial size and dimension. Normal aortic valve structure and function. Normal mitral valve structure and function. Normal tricuspid valve structure and function. The pulmonary valve is grossly normal. No pericardial effusion. TECHNIQUE: XY R FOOT 2 VIEW XRAY FINDINGS/IMPRESSION: There is no evidence of acute fracture or dislocation. 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 Diffuse soft tissue swelling. The alignment is anatomical. There is no radiopaque foreign body. 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 type 2 DM # Chronic left eyelid ptosis # Hypertensive emergency # Uncontrolled type 2 DM with the HbA1c 11.6 # Chronic nonhealing diabetic foot ulcer right foot # Vit D deficiency # SERAFIN likely VM Discharge Disposition: Home with Health Services Discharge Instruct/Medications Diet: Consistent carbohydrate, Cardiac 2g Na,low cholest Activity: No Restrictions, As Tolerated Follow Up/Referral: PCP and podiatry Medications: Per EMR Discharge Statement: "Patient was advised to return to the ER or call 911 if any headaches, dizziness, shortness of breath, chest pain, abdominal pain, bleeding, fevers, or worsening of medical condition. Patient was counseled about treatment plan, medications, possible side effects, patientverbalized understanding. All questions were answered to the best of my ability. This discharge took greater then 30 minutes in planning, reviewing documentation, counseling the patient, and discussing with other team members." ASSESSMENT ASSESSMENT Assessment # Acute left paresthesia, gait disturbance,disequilibrium Likely Acute ischemic stroke of thalamus caudate nucleus Date of Service: Oct 31, 2024 Billing Provider: JACLYN CUEVAS MD Common Visit Codes: [id number] DISCH DAY >30min ABDULAZIZ KURTZ RESIDENT Oct 31, 2024 12:51 JACLYN CUEVAS MD Nov 04, 2024 19:31
[2024-10-31 13:00] VITALS: BP 180/87; PULSE 76; RESP 18; TEMP 97.7; O2SAT 97
[2024-10-31] MEDS ORDERED: ATOR20TA50 PO (13:46)
[2024-10-31] MEDS ORDERED: ERGO1CAP23 PO (13:46)
[2024-10-31] MEDS ORDERED: ASPI-325 PO (13:46)
[2024-10-31] MEDS ORDERED: CLOP75TA70 PO (13:46)
[2024-10-31] MEDS ORDERED: ACET-1882 PO (13:46)
== END 2024-10-31 15:25 | disposition home health service (06) | DRG 45 ==
LOC: EDBD 13:38 → ER 13:38 → TELE-CENTR 20:34 → TELE 21:46 → TELE-WESTW 10-29 18:09
PROVIDERS: ADMIT Internal Medicine Geriatric Medicine; ATTEND Emergency Medicine
DX: I63.89 Other cerebral infarction (principal); E11.42 Type 2 diabetes mellitus with diabetic polyneuropathy; E11.621 Type 2 diabetes mellitus with foot ulcer; L97.419 Non-pressure chronic ulcer of right heel and midfoot with unspecified severity; H02.402 Unspecified ptosis of left eyelid; E55.9 Vitamin D deficiency, unspecified; I16.1 Hypertensive emergency; E87.5 Hyperkalemia; F17.200 Nicotine dependence, unspecified, uncomplicated; E11.40 Type 2 diabetes mellitus with diabetic neuropathy, unspecified; E66.9 Obesity, unspecified; I10 Essential (primary) hypertension; Z79.82 Long term (current) use of aspirin; Z79.899 Other long term (current) drug therapy; Z80.6 Family history of leukemia; Z82.49 Family history of ischemic heart disease and other diseases of the circulatory system; Z83.3 Family history of diabetes mellitus; Z79.02 Long term (current) use of antithrombotics/antiplatelets; Z68.33 Body mass index [BMI] 33.0-33.9, adult
CPT/HCPCS: 36415; 70450; 70551; 71045; 73620; 80048; 80053; 80061; 80320; 82306; 82607; 82746; 82962; 83036; 83735; 83880; 84443; 84484; 85025; 85379; 85610; 85730; 86803; 87077; 87186; 87205; 87340; 93005; 93306; 93886; 97116; 97163; 97530; G0378; J1815

== ENCOUNTER 2024-12-02 14:40 | Inpatient (IN) | payer MEDICAID ==
[~2024-12-02] VITALS: Ht 167.6 cm; Wt 99.7 kg
[~2024-12-02 14:40] MED LIST changes: +ACET-1882 PO; +ASPI-325 PO; -ATOR20TA PO; +ATOR20TA50 PO; -CHOL20002 PO; +CLOP75TA70 PO; +ERGO1CAP23 PO
--- NOTE | 2024-12-02 18:01 | ED.PDOC ---
History of Present Illness(SKN HPI Comments 59 y.o female with PMHx of DM and HTN, presents to the ED via EMS for a evaluation of a wound check. Patient reports having a nonhealing ulcerative wound to the right foot sole proximal to the 5th metatarsal x 1.5 years associated with new onset erythema, swelling and pain x 1 week s/p using home remedy solution to treat wound. Patient denies any fever, chills, bleeding, recent trauma. Patient is non complaint with diabetic medication, unknown last dosage taken. Chief Complaint: Hyperglycemia Time Seen by MD: 17:38 Primary Care Provider: none History of Present Illness: Nurses Notes, Medications, Allergies Allergies: Coded Allergies: NO KNOWN ALLERGIES (Unverified , 10/28/24) Home Meds Active Scripts Ergocalciferol (VITAMIN D 26874 UNIT) 50,000 [place], [address] UNIT PO Q7D for 30 Days, #10 CAP Prov:BEENA PATE [facility] 10/31/24 Clopidogrel Bisulfate (CLOPIDOGREL) 75 Mg Tab, 75 MG PO DAILY for 30 Days, #30 TAB Prov:BEENA PATE [facility] 10/31/24 Atorvastatin Calcium (ATORVASTATIN CALCIUM) 20 Mg Tab, 40 MG PO HS for 30 Days, #60 TAB Prov:BEENA PATE [facility] 10/31/24 Aspirin (Aspirin Low Dose) 81 Mg Tab, 81 MG PO DAILY for 30 Days, #30 TAB Prov:BEENA PATE [facility] 10/31/24 Acetaminophen (Acetaminophen) 325 Mg Tab, 650 MG PO Q6HP PRN for 10 Days, #80 TAB Prov:BEENA PATE [facility] 10/31/24 Reported Medications Loratadine (Claritin) 10 Mg Tab, 1 TAB PO DAILY for 90 Days, #90 10/29/24 Insulin Aspart (Novolog Flexpen Relion) 100 Unit/Ml Inj, 10 UNIT SC BID for 75 Days, #15 10/29/24 Metformin Hydrochloride (Metformin Hcl) 1,000 Mg Tab, 1 TAB PO BID for 90 Days, #180 10/29/24 Fenofibrate (Fenofibrate Micronized) 200 Mg Cap, 1 CAP PO DAILY for 100 Days, #100 10/29/24 Semaglutide (Ozempic) 2 Mg/3 Ml Inj, 0.25 MG SC QWEEKLY for 56 Days, #3 10/29/24 Insulin Glargine (Basaglar Kwikpen) 100 Unit/Ml Inj, 10 UNIT SC HS for 75 Days, #9 10/29/24 Dapagliflozin Propanediol (Farxiga) 10 Mg Tab, 1 TAB PO DAILY for 90 Days, #90 10/29/24 Losartan Potassium (Losartan Potassium) 50 Mg Tab, 1 TAB PO DAILY for 90 Days, #90 10/29/24 Dorzolamide-Timolol (Dorzolamide Hcl/Timolol M) 1 Ml Eloisa, 1 DROP LEFTEYE BID for 60 Days, #10 10/29/24 Carboxymethylcellulose Sodium (Refresh Tears) 0.5 % Devin, 1-2 DROP EACHEYE QID for 30 Days, #15 10/29/24 Information Source: Patient Mode of Arrival: EMS Severity: Moderate Timing: Came on: Gradually Duration: Since onset Location: Foot (right ) Mechanism: Preceding Wound Wound Type: Abscess Immunization Status of Animal: NA History of: Diabetes Associated Signs and Symptoms: Redness, Swelling, Pain Past Medical History PAST MEDICAL HISTORY: DM, HTN Surgical History (Other): right foot, second toe amputations CLARK DRIVER History: Denies all CLARK DRIVER Hx Family History Family History: Reviewed,noncontributory to illness Social History Smoker: Non-Smoker Alcohol: Denies ETOH Use Drugs: Denies Drug Use Lives In: Home Constitutional: denies: chills, diaphoresis, fatigue, fever, malaise, sweats, weakness, others EENTM: denies: blurred vision, double vision, ear bleeding, ear discharge, ear drainage, ear pain, ear ringing, eye pain, eye redness, hearing loss, mouth pain, mouth swelling, nasal discharge, nose bleeding, nose congestion, nose pain, photophobia, tearing, throat pain, throat swelling, voice changes, others Respiratory: denies: cough, hemoptysis, orthopnea, SOB at rest, shortness of breath, SOB with excertion, stridor, wheezing, others Cardiovascular: denies: chest pain, dizzy spells, diaphoresis, Dyspnea on exertion, edema, irregular heart beat, left arm pain, lightheadedness, palpitations, PND, syncope, others Gastrointestinal: denies: abdomen distended, abdominal pain, blood streaked bowels, constipated, diarrhea, dysphagia, difficulty swallowing, hematemesis, melena, nausea, poor appetite, poor fluid intake, rectal bleeding, rectal pain, vomiting, others Genitourinary: denies: abnormal vagina bleeding, burning, dyspareunia, dysuria, flank pain, frequency, hematuria, incontinence, pain, , vagina discharge, urgency, others Neurological: denies: dizziness, fainting, headache, left sided numbness, left sided weakness, numbness, paresthesia, pre-existing deficit, right sided numbness, right sided weakness, seizure, speech problems, tingling, tremors, weakness, others Musculoskeletal: denies: back pain, gout, joint pain, joint swelling, muscle pain, muscle stiffness, neck pain, others Integumetry: reports: wounds (right foot ); denies: bruises, change in color, change in hair/nails, dryness, laceration, lesions, lumps, rash, others Hematologic/Lymphatic: denies: anemia, blood clots, easy bleeding, easy bruising, swollen glands, others Endocrine: denies: excessive hunger, excessive sweating, excessive thirst, excessive urination, flushing, intolerance to cold, intolerance to heat, unexplained weight gain, unexplained weight loss, others Psychiatric: denies: anxiety, bipolar disorder, depression, hopeless, panic disorder, schizophrenia, sleepless, suicidal, others All Other Systems: Reviewed and Negative Physical Exam General Appearance: No Apparent Distress, Normal HEENT: Normal ENT Inspection, Pharynx Normal, TMs Normal Neck: Full Range of Motion, Non-Tender, Normal, Normal Inspection Respiratory: Chest Non-Tender, Lungs Clear, No Accessory Muscle Use, No Respiratory Distress, Normal Breath Sounds Cardiovascular: No Edema, No JVD, No Murmur, No Gallop, Normal Peripheral Pulses, Regular Rate/Rhythm Breast Exam: Deferred Gastrointestinal: No Organomegaly, Non Tender, No Pulsatile Mass, Normal Bowel Sounds, Soft Genitalia: Deferred Pelvic: Deferred Rectal: Deferred Extremities: No calf tenderness, Normal capillary refill, Normal inspection, Normal range of motion, Non-tender, No pedal edema Musculoskeletal : Apperance: Normal Neurologic: Alert, revenue officer II-XII nml as Tested, No Motor Deficits, Normal Affect, Normal Mood, No Sensory Deficits Cerebellar Function: Normal Reflexes: Normal Skin: Wounds (right foot, 4th toe missing. Wound ulcer to the right sole proximal to the 5th metatarsal, erythemic with serous drainage ) Lymphatic: No Adenopathy Was a procedure done? Was a procedure done?: No Differential Diagnosis (INTG) Differential Diagnosis: Abscess, Cellulitis, Erythema multiforme, Osteomyelitis X-Ray, Labs, Meds, VS Vital Signs Date Time Temp Pulse Resp B/P (MAP) Pulse Ox O2 Delivery O2 Flow Rate FiO2 12/02/24 20:01 80 156/74 (101) 97 12/02/24 17:20 98.0 83 16 158/68 (98) 97 98.0 12/02/24 15:00 98.6 82 16 169/74 (105) 96 Lab Test 12/02/24 18:04 12/02/24 17:55 12/02/24 14:50 Range/Units White Blood Count Pending Red Blood Count Pending Hemoglobin Pending Hematocrit Pending Mean Corpuscular Volume Pending Mean Corpuscular Hemoglobin Pending Mean Corpuscular Hemoglobin Concent Pending Red Cell Distribution Width Pending Platelet Count Pending Mean Platelet Volume Pending Neutrophils (%) (Auto) Pending Lymphocytes (%) (Auto) Pending Monocytes (%) (Auto) Pending Basophils (%) (Auto) Pending Neutrophils # (Auto) Pending Lymphocytes # (Auto) Pending Monocytes # (Auto) Pending Sodium Level Pending Potassium Level Pending Chloride Level Pending Carbon Dioxide Level Pending Anion Gap Pending Blood Urea Nitrogen Pending Creatinine Pending Glomerular Filtration Rate Calc Pending BUN/Creatinine Ratio Pending Serum Glucose Pending Lactic Acid Level 1.2 0.4-2.0 mmol/L Calcium Level Pending Total Bilirubin Pending Aspartate Amino Transferase (AST) Pending Alanine Aminotransferase (ALT) Pending Alkaline Phosphatase Pending Total Protein Pending Albumin Pending Urine Color Pending Urine Clarity Pending Urine pH Pending Urine Specific [place] Pending Urine Protein Pending Urine Ketones Pending Urine Blood Pending Urine Nitrite Pending Urine Bilirubin Pending Urine Urobilinogen Pending Urine Leukocyte Esterase Pending Urine RBC Pending Urine WBC Pending Urine Squamous Epithelial Cells Pending Urine Bacteria Pending Urine Glucose Pending POC Glucose 379 H 70-106 mg/dl Current Medications Medications (Trade) Dose Ordered Sig/Mesfin Route Start Time Stop Time Status Last Admin Piperacillin Sod/ Tazobactam Sod 100 ml @ 100 mls/hr ONCE ONCE IV 12/02/24 18:00 12/02/24 18:59 DC 12/02/24 18:18 EXAM: CT CT R FOOT WO CONTRAST INDICATION: wound EXAM DATE: 12/02/2024 06:07 PM COMPARISON: None TECHNIQUE: Multiple axial CT images of the right foot were obtained using bone algorithm. Axial and coronal reformatting was done. Bone and soft tissue windows were reviewed. Radiation Dose Information: CT Dose: CTDI volume is 7.75 mGy. Dose-length product is 215.01 mGy*cm Findings/Impression: There is no evidence of an acute fracture, dislocation, osseous erosions, blastic, or lytic lesions. Amputation of the 4th digit. No radiopaque foreign bodies. Mild to moderate diffuse soft tissue edema. Plantar soft tissue ulcer near the 4th metatarsal head. No subcutaneous emphysema. Impression: 1. No evidence of an acute fracture of osseous erosions. 2. Mild to moderate diffuse soft tissue edema. No subcutaneous emphysema. 3. Plantar soft tissue ulcer near the 4th metatarsal head. X-Ray, Labs, Meds, VS Comment Patient will be admitted for cellulitis of the right foot Concerns of possible osteomyelitis Patient will be started on Zosyn IV antibiotics Recommend wound consult in the morning Patient be given 10 units insulin Time of 1ST Reevaluation: 17:52 Reevaluation 1ST: Unchanged Patient Education/Counseling: Diagnosis, Treatment Family Education/Counseling: No Family Present Departure 1 Departure Time of Disposition: 20:20 Impression: Primary Impression: Cellulitis and abscess of foot Additional Impression: Hyperglycemia Disposition: 09 ADMITTED INPATIENT Condition: Stable Discharged With: Self Critical Care Note Critical Care Time?: No Stability Stability form required: No I personally scribed for LINDSEY BARNESP ([facility]) on 12/02/24 at 18:01. Electronically submitted by Eleanor Kolb ([facility]). I personally scribed for LINDSEY BARNESP ([email or web address]) on 12/02/24 at 19:55. Electronically submitted by Eleanor Kolb ([facility]). LINDSEY BARNES Dec 02, 2024 18:01
[2024-12-02] MEDS: PIPERACILLIN-TAZOB 3.375GM 100 ML IV ONE (18:18)
--- NOTE | 2024-12-02 18:55 | DVH ---
EXAM: CT CT R FOOT WO CONTRAST INDICATION: wound EXAM DATE: 12/02/2024 06:07 PM COMPARISON: None TECHNIQUE: Multiple axial CT images of the right foot were obtained using bone algorithm. Axial and c oronal reformatting was done. Bone and soft tissue windows were reviewed. Radiation Dose Information: CT Dose: CTDI volume is 7.75 mGy. Dose-length product is 215.01 mGy*cm Findings/Impression: There is no evidence of an acute fracture, dislocation, osseous erosions, blastic, or lytic lesions. Amputation of the 4th digit. No radiopaque foreign bodies. Mild to moderate diffuse soft tissue edema. Plantar soft tissue ulcer near the 4th metatarsal head. N o subcutaneous emphysema. Impression: 1. No evidence of an acute fracture of osseous erosions. 2. Mild to moderate diffuse soft tissue edema. No subcutaneous emphysema. 3. Plantar soft tissue ulcer near the 4th metatarsal head.
[2024-12-02 19:30] LABS: Urine Bacteria None Seen /hpf (None Seen)
[2024-12-02 19:38] LABS: Basophils # (auto) 0 10 ^3/uL (0-0.2); Basophils % (auto) 0.4 % (0.0-2.0); Eosinophils # (auto) 0.1 10 ^3/uL (0-0.8); Eosinophils % (auto) 0.7 % (0.0-7.0); Hematocrit 35.1 % (36.0-46.0); Hemoglobin 11.9 g/dL (12.2-16.2); Lymphocytes # (auto) 1.5 10 ^3/uL (0.4-5.4); Lymphocytes % (auto) 13.2 % (10.0-50.0); Mean Corpuscular Hgb Conc. 33.9 g/dL (32.0-36.0); Mean Corpuscular Volume 88.5 fL (80.0-100.0); Monocytes # (auto) 0.7 10 ^3/uL (0-1.3); Monocytes % (auto) 6.5 % (0.0-12.0); Neutrophils % (auto) 79.2 % (37.0-80.0); Platelet Count (auto) 418 10^3/uL (140-450); Red Blood Cells 3.97 10^6/uL (4.0-5.20); Red Cell Distribution Width 13.1 % (11.8-14.3); White Blood Cell 11.3 10^3/uL (4.4-10.8)
[2024-12-02 19:49] LABS: Alanine Aminotransferase 11 U/L (7-40); Albumin 3.4 g/dL (3.2-4.8); Anion Gap 6 (5-15); Aspartate Aminotransferase 19 U/L (13-40); BUN/Creatinine Ratio 10.6 (10.0-20.0); Bilirubin, Total 0.4 mg/dL (0.2-1.0); Blood Urea Nitrogen 15 mg/dL (9-23); Calcium 9.1 mg/dL (8.7-10.4); Carbon Dioxide 26 mmol/L (20-31); Chloride 102 mmol/L (98-107); Potassium 4.1 mmol/L (3.5-5.1); Total Protein 6.6 g/dL (5.7-8.2)
[2024-12-02 20:01] VITALS: BP 156/74; PULSE 80; O2SAT 97
[2024-12-02 20:17] LABS: Urine Blood TRACE /uL (Negative); Urine Clarity Clear (Clear); Urine Color Light-Yellow (Yellow); Urine Mucus FEW (None Seen); Urine Protein, UAD 3+ (Negative); Urine Specific Gravity 1.021 (1.001-1.035); Urine Squamous Epithelial Cell FEW /hpf (<5); Urine Urobilinogen Normal (Negative); Urine WBC 2 /hpf (0 - 5)
[2024-12-02 20:28] LABS: Alkaline Phosphatase 146 U/L (46-116); Sodium 134 mmol/L (136-145)
[2024-12-02 20:32] LABS: Glucose 434 mg/dL (74-106)
[2024-12-02] MEDS: InsuLIN REG 1unit/0.01ml Soln (100units/ml) SC ONE (22:15)
[2024-12-03] MEDS ORDERED: DOCUSATE SOD 100 MG CAP PO PRN (01:15)
[2024-12-03] MEDS ORDERED: VANCOMYCIN PER PHARMACY 0 MG IV SCH (01:15)
[2024-12-03] MEDS ORDERED: DEXTROSE (50%) 50ML SYRG IV PRN (01:15)
--- NOTE | 2024-12-03 01:20 | DVHPNRES ---
Progress Note Objective vital signs Vital Sign Date Time Temp Pulse Resp B/P (MAP) Pulse Ox O2 Delivery O2 Flow Rate FiO2 12/02/24 20:01 80 156/74 (101) 97 12/02/24 17:20 98.0 16 98.0 medications Current Medications Medications Dose Ordered Sig/Mesfin Route Start Time Stop Time Status Last Admin Dose Admin Vancomycin HCl 0 ml @ 0 mls/hr UD IV 12/03/24 01:15 UNV Cefepime HCl 50 ml @ 12.5 mls/hr Q12HR IV 12/03/24 10:00 UNV Insulin Glargine 15 units HS SC 12/03/24 22:00 UNV Diagnostic Test (Pha) 1 strip ACHS 12/03/24 07:00 UNV Insulin Human Regular HS SC 12/03/24 22:00 UNV Insulin Human Regular AC SC 12/03/24 07:00 UNV Dextrose 50 ml UD PRN IV 12/03/24 01:15 UNV Acetaminophen 650 mg Q4HP PRN PO 12/03/24 01:15 UNV Sodium Chloride 1,000 ml @ 100 mls/hr Q10H IV 12/03/24 01:15 12/03/24 11:55 UNV Docusate Sodium 100 mg BIDPRN PRN PO 12/03/24 01:15 UNV laboratory and microbiology Laboratory Tests 12/02/24 18:04 Test 12/02/24 18:04 Range/Units Serum Glucose 434 *H 74-106 mg/dL My Orders My Orders Orders - MARGO FARFAN RESDIENT Procedure Category Date Status Time Admit ADMIT 12/02/24 Transmitted 23:22 Stat Ekg For Chest FRANK 12/02/24 In Process Pain 23:22 Notify Of Changes FRANK 12/02/24 In Process From Base 23:22 Complete Blood Count LAB 12/04/24 Verified 04:00 Comprehensive LAB 12/04/24 Verified Metabolic Panel 04:00 Vancomycin Per PHA 12/03/24 Logged Pharmacy 01:15 Cefepime 2gm/50ml Ns PHA 12/03/24 Logged (Maxipime 2gm/50ml) 10:00 Insulin Lantus PHA 12/03/24 Logged (Glargine) (Lantus) 22:00 Glucose Blood PHA 12/03/24 Logged (Accu-Chek Comfort 07:00 Insulin R (Human) PHA 12/03/24 Logged (Insulin R) 22:00 Insulin R (Human) PHA 12/03/24 Logged (Insulin R) 07:00 Dextrose 50% Syringe PHA 12/03/24 Logged 01:15 * Wound Consult CONS 12/03/24 Transmitted 01:05 Mri L Foot Wo W MRI 12/03/24 Logged Contrast 01:05 Mrsa Screen BRADLEY 12/03/24 Logged 01:05 Acetaminophen Tablet PHA 12/03/24 Logged (Tylenol Tablet) 01:15 Sodium Chloride 0.9% PHA 12/03/24 Logged 01:15 Lactic Acid W/ Reflex LAB 12/03/24 Logged Order 01:05 Amlodipine Tablet PHA 12/03/24 Logged (Norvasc Tablet) 01:15 Consistent DIET 12/03/24 Transmitted Carb([facility])Diabetes Breakfast Provide Diabetic ORDERS 12/03/24 Transmitted Education 01:05 Blood Culture BRADLEY 12/03/24 Logged 01:05 Wound Culture W/ Gs BRADLEY 12/03/24 Logged 01:05 Urine Sodium LAB 12/03/24 Logged 01:05 Urine Protein LAB 12/03/24 Logged 01:05 Urine Creatinine LAB 12/03/24 Logged 01:05 Docusate Sodium PHA 12/03/24 Logged Capsule (Colace 01:15 MARGO FARFAN RESCOOPER Dec 03, 2024 01:20
[2024-12-03 01:46] LABS: Creatinine, Urine 71.08 mg/dL (30.0-125.0)
[2024-12-03 01:49] LABS: Protein, Urine 681.4 mg/dL (1-14)
[2024-12-03] MEDS: SODIUM CHLORIDE 0.9% 1,000 ML IV SCH (01:51)
[2024-12-03] MEDS: amLODIPine BESYLATE 5 MG TAB PO ONE (01:55)
[2024-12-03] MEDS ORDERED: VANCOMYCIN 1GM/250ML KIT 250 ML IV ONE ×2 (02:00→04:00)
[2024-12-03] MEDS: VANCOMYCIN 1GM/250ML KIT 250 ML IV ONE ×2 (03:45→06:37)
--- NOTE | 2024-12-03 05:13 | DVHHPRES ---
History of Present Illness Resident Creating Document: MARGO FARFAN RESDIENT History of Present Illness This is a 59-year-old female with past medical history of diabetes mellitus, hypertension, hyperlipidemia, CKD and ischemic stroke presented to the hospital due to right foot swelling and pain. Per patient, she has the chronic ulcer on the right foot since 1.5 year. Per patient, 4 days back she has boiled some remedies and dipped his foot into the boiled fluid, later on it leads to his right foot redness and swelling. Patient denies any fever, nausea, vomiting, chest pain, chills, bleeding or any recent trauma. PMHx: diabetes mellitus, hypertension, hyperlipidemia, CKD and ischemic stroke PSHx: Noncontributory Family history: Noncontributing Social history: Patient lives with her boyfriend at home, ex-smoker, denies alcohol or any drug use Home medication: Atorvastatin, aspirin, clopidogrel, Ozempic, per patient her PCP stopped insulin 5 months back Allergic history: Noncontributory PCP: Does not remember the name Review of Systems Review of Systems General: patient denies fever, fatigue, weaknes, sweating, any recent changes in appetite and weight HEENT: No headaches, visiual changes, hearing loss, tinnitus, nasal congestion and discharge, and sore throat. Cardiovascular: Denies chest pain, palpitations, dyspnea on exertion, orthopnea, or claudication. Respiratory: No cough, and wheezing. Gastrointestinal: Denies nausea, vomiting, dysphagia, odynophagia, heartburn, abdominal pain, flatulence, bloating, diarrhea, constipation, change in stool, or blood in stool. Genitourinary: No dysuria, hematuria, discharge, frequency, urgency, nocturia, incontinence, and urinary retention. Endocrine: No heat or cold intolerance, polydipsia, polyuria, and polyphagia. Neurological: Reports right-sided upper limb numbness Psychiatric: Denies depression, anxiety,or insomnia. Musculoskeletal: Reports right foot pain Allergies: Coded Allergies: NO KNOWN ALLERGIES (Unverified , 10/28/24) Medications Current Medications Medications Dose Ordered Sig/Mesfin Route Start Time Stop Time Status Last Admin Dose Admin Vancomycin HCl 0 ml @ 0 mls/hr UD IV 12/03/24 01:15 UNV Cefepime HCl 50 ml @ 12.5 mls/hr Q12HR IV 12/03/24 10:00 Diagnostic Test (Pha) 1 strip ACHS 12/03/24 07:00 Insulin Human Regular HS SC 12/03/24 22:00 Insulin Human Regular AC SC 12/03/24 07:00 Dextrose 50 ml UD PRN IV 12/03/24 01:15 Acetaminophen 650 mg Q4HP PRN PO 12/03/24 01:15 Sodium Chloride 1,000 ml @ 100 mls/hr Q10H IV 12/03/24 01:15 12/03/24 11:55 12/03/24 01:51 100 MLS/HR Docusate Sodium 100 mg BIDPRN PRN PO 12/03/24 01:15 Insulin Glargine 14 units DAILY@1000 SC 12/03/24 10:00 Exam Vital Signs Vital Signs Date Time Temp Pulse Resp B/P (MAP) Pulse Ox O2 Delivery O2 Flow Rate FiO2 12/03/24 01:55 145/85 12/02/24 20:01 80 97 12/02/24 17:20 98.0 16 98.0 Exam General Appearance: Alert, Oriented X3, Cooperative, No acute distress HEENT: Atraumatic, PERRLA, EOMI, Mucous membrane moist/pink Respiratory: Clear to auscultation, Normal air movement Cardiovascular: Regular rate, Normal S1, Normal S2, No murmurs, no chest wall tenderness Abdominal: Normal bowel sounds, Soft, No tenderness, No hepatospenomegaly, No masses Extremities: Right foot and swelling, there is an ulcer on the sole with purulent discharge Skin: No rashes, No breakdown, No significant lesion Neuro: Right-sided residual weakness due to previous ischemic stroke Labs/Xrays Labs Test 12/02/24 22:06 12/02/24 18:04 12/02/24 17:55 Range/Units POC Glucose 373 H 70-106 mg/dl White Blood Count 11.3 H 4.4-10.8 10^3/uL Red Blood Count 3.97 L 4.0-5.20 10^6/uL Hemoglobin 11.9 L 12.2-16.2 g/dL Hematocrit 35.1 L 36.0-46.0 % Mean Corpuscular Volume 88.5 80.0-100.0 fL Mean Corpuscular Hemoglobin 30.0 28.0-32.0 pg Mean Corpuscular Hemoglobin Concent 33.9 32.0-36.0 g/dL Red Cell Distribution Width 13.1 11.8-14.3 % Platelet Count 418 140-450 10^3/uL Mean Platelet Volume 8.6 6.9-10.8 fL Neutrophils (%) (Auto) 79.2 37.0-80.0 % Lymphocytes (%) (Auto) 13.2 10.0-50.0 % Monocytes (%) (Auto) 6.5 0.0-12.0 % Eosinophils (%) (Auto) 0.7 0.0-7.0 % Basophils (%) (Auto) 0.4 0.0-2.0 % Neutrophils # (Auto) 9.0 H 1.6-8.6 10 ^3/uL Lymphocytes # (Auto) 1.5 0.4-5.4 10 ^3/uL Monocytes # (Auto) 0.7 0-1.3 10 ^3/uL Eosinophils # (Auto) 0.1 0-0.8 10 ^3/uL Basophils # (Auto) 0 0-0.2 10 ^3/uL Nucleated Red Blood Cells 0.0 % Sodium Level 134 L 136-145 mmol/L Potassium Level 4.1 3.5-5.1 mmol/L Chloride Level 102 98-107 mmol/L Carbon Dioxide Level 26 20-31 mmol/L Anion Gap 6 5-15 Blood Urea Nitrogen 15 9-23 mg/dL Creatinine 1.42 H 0.550-1.02 mg/dL Glomerular Filtration Rate Calc 42 >90 mL/min BUN/Creatinine Ratio 10.6 10.0-20.0 Serum Glucose 434 *H 74-106 mg/dL Lactic Acid Level 1.2 0.4-2.0 mmol/L Calcium Level 9.1 8.7-10.4 mg/dL Total Bilirubin 0.4 0.2-1.0 mg/dL Aspartate Amino Transferase (AST) 19 13-40 U/L Alanine Aminotransferase (ALT) 11 7-40 U/L Alkaline Phosphatase 146 H 46-116 U/L Total Protein 6.6 5.7-8.2 g/dL Albumin 3.4 3.2-4.8 g/dL Urine Color Light-yellow Yellow Urine Clarity Clear Clear Urine pH 7.0 5.0-9.0 Urine Specific [place] 1.021 1.001-1.035 Urine Protein 3+ H Negative Urine Ketones Negative Negative Urine Blood Trace H Negative /uL Urine Nitrite Negative Negative Urine Bilirubin Negative Negative Urine Urobilinogen Normal Negative mg/dL Urine Leukocyte Esterase Negative Negative /uL Urine RBC 1 0 - 4 /hpf Urine WBC 2 0 - 5 /hpf Urine Squamous Epithelial Cells Few <5 /hpf Urine Bacteria None seen None Seen /hpf Urine Mucus Few None Seen Urine Creatinine 71.08 30.0-125.0 mg/dL Urine Sodium 64 40-220 mmol/L Urine Glucose 4+ H Normal mg/dL Urine Total Protein 681.4 H 1-14 mg/dL Assessment/Plan Assessment/Plan Right foot cellulitis Diabetic foot Possible osteomyelitis CT scan showed, mild to moderate diffuse soft tissue edema. No subcutaneous emphysema. Plantar soft tissue ulcer near the 4th metatarsal head Empiric antibiotic of vancomycin and cefepime Wound culture Blood culture MRI Wound consult Uncontrolled Diabetes mellitus type 2, with hyperglycemia Hb A1c from 10/29/2024, shows 11.6 Patient is using Ozempic at home Per patient her primary care stopped insulin 5 months back Injection Lantus 14 units daily Insulin regular moderate SS History of ischemic stroke continue aspirin and atorvastatin Hypertension Amlodipine Mild hyponatremia, monitoring SERAFIN, on CKD grade 3 a, likely VMN Check FENa IV fluid Mild anemia, normocytic normochromic Monitoring Dyslipidemia Atorvastatin DIET: Diabetic diet DVT PROPHYLAXIS: Patient is mobile, no indication for anticoagulant CODE STATUS: Goal of care discussed for more than 27 minutes, full code DISPOSITION: Med surge Patient's status discussed with patient. Case discussed with Dr. Powers Plan discussed with: Patient, Other (RN) My Orders Orders - MARGO FARFAN RESDIMADELINE Procedure Category Date Status Time Admit ADMIT 12/02/24 Transmitted 23:22 Stat Ekg For Chest FRANK 12/02/24 In Process Pain 23:22 Notify Of Changes FRANK 12/02/24 In Process From Base 23:22 Complete Blood Count LAB 12/04/24 Verified 04:00 Comprehensive LAB 12/04/24 Verified Metabolic Panel 04:00 Vancomycin Per PHA 12/03/24 Pending Pharmacy 01:15 Cefepime 2gm/50ml Ns PHA 12/03/24 In Process (Maxipime 2gm/50ml) 10:00 Glucose Blood PHA 12/03/24 In Process (Accu-Chek Comfort 07:00 Insulin R (Human) PHA 12/03/24 In Process (Insulin R) 22:00 Insulin R (Human) PHA 12/03/24 In Process (Insulin R) 07:00 Dextrose 50% Syringe PHA 12/03/24 In Process 01:15 * Wound Consult CONS 12/03/24 Transmitted 01:05 Mri L Foot Wo W MRI 12/03/24 Logged Contrast 01:05 Mrsa Screen BRADLEY 12/03/24 Logged 01:05 Acetaminophen Tablet PHA 12/03/24 In Process (Tylenol Tablet) 01:15 Sodium Chloride 0.9% PHA 12/03/24 In Process 01:15 Lactic Acid W/ Reflex LAB 12/03/24 Logged Order 01:05 Consistent DIET 12/03/24 Transmitted Carb([facility]cho)Diabetes Breakfast Provide Diabetic ORDERS 12/03/24 Transmitted Education 01:05 Blood Culture BRADLEY 12/03/24 Logged 01:05 Wound Culture W/ Gs BRADLEY 12/03/24 Logged 01:05 Docusate Sodium PHA 12/03/24 In Process Capsule (Colace 01:15 Date of Service: Dec 02, 2024 Billing Provider: MARNI POWERS MD Common Visit Codes: 96041-ISELPTF INP/OBS CARE (HIGH) Secondary Visit Codes: 58759-ICLTRQND CARE PLAN 30 MINUTES MARGO FARFAN RESDIENT Dec 03, 2024 05:13 MARNI POWERS MD Dec 03, 2024 09:45
[2024-12-03] MEDS: ACCU-CHEK COMFORT CURVE STRIP VI SCH (06:22)
[2024-12-03] MEDS: InsuLIN REG 1unit/0.01ml Soln (100units/ml) SC SCH ×2 (06:29→21:54)
[2024-12-03 07:36] LABS: Basophils # (auto) 0.1 10 ^3/uL (0-0.2); Basophils % (auto) 0.6 % (0.0-2.0); Eosinophils # (auto) 0.2 10 ^3/uL (0-0.8); Eosinophils % (auto) 1.7 % (0.0-7.0); Hematocrit 33.9 % (36.0-46.0); Hemoglobin 11.3 g/dL (12.2-16.2); Lymphocytes # (auto) 2.2 10 ^3/uL (0.4-5.4); Lymphocytes % (auto) 21.1 % (10.0-50.0); Mean Corpuscular Hemoglobin 29.8 pg (28.0-32.0); Mean Corpuscular Hgb Conc. 33.4 g/dL (32.0-36.0); Mean Corpuscular Volume 89.1 fL (80.0-100.0); Monocytes # (auto) 0.9 10 ^3/uL (0-1.3); Monocytes % (auto) 8.8 % (0.0-12.0); Neutrophils # (auto) 7.1 10 ^3/uL (1.6-8.6); Neutrophils % (auto) 67.8 % (37.0-80.0); Platelet Count (auto) 420 10^3/uL (140-450); Red Blood Cells 3.81 10^6/uL (4.0-5.20); Red Cell Distribution Width 13.3 % (11.8-14.3); White Blood Cell 10.5 10^3/uL (4.4-10.8)
[2024-12-03 07:48] LABS: Alanine Aminotransferase 14 U/L (7-40); Albumin 3.3 g/dL (3.2-4.8); Alkaline Phosphatase 140 U/L (46-116); Anion Gap 8 (5-15); Aspartate Aminotransferase 20 U/L (13-40); BUN/Creatinine Ratio 12.6 (10.0-20.0); Bilirubin, Total 0.3 mg/dL (0.2-1.0); Blood Urea Nitrogen 17 mg/dL (9-23); Carbon Dioxide 25 mmol/L (20-31); Chloride 104 mmol/L (98-107); Glucose 215 mg/dL (74-106); Potassium 3.6 mmol/L (3.5-5.1); Sodium 137 mmol/L (136-145); Total Protein 6.5 g/dL (5.7-8.2)
[2024-12-03 08:21] LABS: INR 1.05 (0.9-1.15); Prothrombin Time 11.1 sec (9.3-11.8)
--- NOTE | 2024-12-03 08:35 | DVH ---
INDICATION: samira on ckd TECHNIQUE: Multiple real-time sonographic images of the kidneys and bladder were obtained. COMPARISON: None FINDINGS: The right kidney measures 11 cm in length, which is normal in size. There is increased echogenicity o f the right kidney. No hydronephrosis. The left kidney measures 12 cm in length, which is normal in size. There is increased echogenicity of the left kidney. No hydronephrosis. No large intraluminal masses are seen in the bladder. Prior to voiding the bladder volume measures volume 409 cc. IMPRESSION: Echogenic bilateral kidneys suggestive of chronic renal disease. No hydronephrosis.
--- NOTE | 2024-12-03 09:31 | DVH ---
CLINICAL HISTORY: 59 years old, Female; infection, ulcer. Rule out osteomyelitis. TECHNIQUE: Multi sequence multi planar MRI images of the right midfoot and forefoot were obtained wi thout IV contrast. COMPARISON: CT CT R FOOT WO CONTRAST on DOS: 12/02/24 FINDINGS: Wound at the plantar aspect forefoot 4th metatarsal and wounds along lateral and plantar a spects of the 5th digit. Complex collection along the plantar aspect of the proximal phalanx of the 5 th digit measures up to 2.8 x 1.4 x 1.5 cm, likely phlegmon, appears to communicate skin surface at i ts anterior lateral aspects. There is mild t2/stir hyperintense signal in the digit proximal phalanx, likely reactive marrow signal changes with no associated T1 hypointense signal identified suggest os teomyelitis. There is also subtle mild T2 hyperintense signal in the 4th metatarsal head, also likely reactive marrow changes with no T1 hypointense signal to suggest osteomyelitis. Moderate to marked f atty atrophy of the intrinsic musculature of the foot. Moderate subcutaneous edema throughout the vis ualized portions of the right foot, greatest at the 5th digit and plantar aspect of the lateral foref oot. IMPRESSION: 1. Wounds adjacent to the 4th metatarsal head and 5th digit as detailed above with surrounding soft t issue inflammatory changes, likely cellulitis. 2. Complex fluid collection along the plantar aspect of the proximal phalanx of the 5th digit, likely phlegmon /developing abscess. Limited evaluation for abscess on noncontrast enhanced exam. 3. Mild t2/stir hyperintense signal involving the 5th digit proximal phalanx 4th metatarsal head like ly reactive marrow changes to the adjacent infection, with no T1 hypointense signal to suggest osteom yelitis at this time. 4. Additional findings as detailed above.
--- NOTE | 2024-12-03 09:39 | DVH ---
CLINICAL HISTORY: diabetic foot TECHNIQUE: Right lower extremity arterial duplex exam was performed. Grayscale, color Doppler, and sp ectral waveform analysis was performed. COMPARISON: None FINDINGS: Right Lower Extremity: Moderate to marked arterial calcification. No flow visualized in the distal po sterior tibial artery suspected occlusion. Biphasic waveforms are seen in the common femoral, profund a, popliteal arteries. Triphasic waveforms throughout the SFA. Monophasic waveforms in the posterior tibial, anterior tibial, and dorsalis pedis arteries. Prominent lymph nodes in the right inguinal region, with the largest measuring up to 2.6 x 1.0 cm ech ogenic oliver noted. EXAMINATION DATA: RIGHT PSV (cm/sec) TABLE KEEPER 126 Profunda 76 SFA Prox 102 SFA Mid 113 SFA Dist 113 POP A 125 UNDER SHERIFF 0 DPA 107 WILLIAM 55 IMPRESSION: 1. Peripheral arterial disease with monophasic waveforms in the right posterior tibial, dorsalis pedi s, and distal anterior tibial arteries. No flow demonstrated in the posterior tibial artery, suspecte d occlusion. 2. Enlarged right inguinal lymph nodes, may be reactive, although correlation with clinical findings is needed. If there is clinical concern for malignancy, biopsy could be obtained.
[2024-12-03] MEDS: CEFEPIME 2GM/50ML NS 50 ML IV SCH (10:29)
[2024-12-03] MEDS: INSULIN LANTUS (GLARGINE) 1 /0.01ml (100units/ml) SC SCH (11:03)
[2024-12-03 11:20] VITALS: BP 155/69; PULSE 76; RESP 16; TEMP 98.9; O2SAT 99
--- NOTE | 2024-12-03 12:30 | DVHINCON2 ---
Date Seen: Dec 03, 2024 Reason for Consultation Right foot wound History of Present Illness This is a 59-year-old female with past medical history of diabetes mellitus, hypertension, hyperlipidemia, CKD and ischemic stroke presented to the hospital due to right foot swelling and pain. Per patient, she has the chronic ulcer on the right foot since 1.5 year. Per patient, 4 days back she has boiled some remedies and dipped his foot into the boiled fluid, later on it leads to his right foot redness and swelling. Patient denies any fever, nausea, vomiting, c hest pain, chills, bleeding or any recent trauma. Past Medical History See H&P Past Surgical History See H&P Family History: Diabetes mellitus G8 MOTHER G8 FATHER FHx: leukemia Hypertension G8 MOTHER G8 FATHER Allergies: Coded Allergies: NO KNOWN ALLERGIES (Unverified , 10/28/24) Home Meds Active Scripts Ergocalciferol (VITAMIN D 07695 UNIT) 50,[address] [place], [address] UNIT PO Q7D for 30 Days, #10 CAP Prov:[facility] 10/31/24 Clopidogrel Bisulfate (CLOPIDOGREL) 75 Mg Tab, 75 MG PO DAILY for 30 Days, #30 TAB Prov:[facility]EENA [facility] 10/31/24 Atorvastatin Calcium (ATORVASTATIN CALCIUM) 20 Mg Tab, 40 MG PO HS for 30 Days, #60 TAB Prov:[facility]EENA [facility] 10/31/24 Aspirin (Aspirin Low Dose) 81 Mg Tab, 81 MG PO DAILY for 30 Days, #30 TAB Prov:[facility]EENA [facility] 10/31/24 Acetaminophen (Acetaminophen) 325 Mg Tab, 650 MG PO Q6HP PRN for 10 Days, #80 TAB Prov:[facility]EENA [facility] 10/31/24 Reported Medications Loratadine (Claritin) 10 Mg Tab, 1 TAB PO DAILY for 90 Days, #90 10/29/24 Insulin Aspart (Novolog Flexpen Relion) 100 Unit/Ml Inj, 10 UNIT SC BID for 75 Days, #15 10/29/24 Metformin Hydrochloride (Metformin Hcl) 1,000 Mg Tab, 1 TAB PO BID for 90 Days, #180 10/29/24 Fenofibrate (Fenofibrate Micronized) 200 Mg Cap, 1 CAP PO DAILY for 100 Days, #100 12/10/24 Semaglutide (Ozempic) 2 Mg/3 Ml Inj, 0.25 MG SC QWEEKLY for 56 Days, #3 10/29/24 Insulin Glargine (Basaglar Kwikpen) 100 Unit/Ml Inj, 10 UNIT SC HS for 75 Days, #9 10/29/24 Dapagliflozin Propanediol (Farxiga) 10 Mg Tab, 1 TAB PO DAILY for 90 Days, #90 10/29/24 Losartan Potassium (Losartan Potassium) 50 Mg Tab, 1 TAB PO DAILY for 90 Days, #90 10/29/24 Dorzolamide-Timolol (Dorzolamide Hcl/Timolol M) 1 Ml Eloisa, 1 DROP LEFTEYE BID for 60 Days, #10 10/29/24 Carboxymethylcellulose Sodium (Refresh Tears) 0.5 % Devin, 1-2 DROP EACHEYE QID for 30 Days, #15 10/29/24 Current Medications Current Medications Medications (Trade) Dose Ordered Sig/Mesfin Route PRN Reason Start Time Stop Time Status Last Admin Vancomycin HCl 0 ml @ 0 mls/hr UD IV 12/03/24 01:15 Cefepime HCl 50 ml @ 12.5 mls/hr Q12HR IV 12/03/24 10:00 12/03/24 10:29 Insulin Glargine (Lantus) 15 units HS SC 12/03/24 22:00 12/03/24 01:27 DC Diagnostic Test (Pha) (Accu-Chek Comfort Curve T) 1 strip ACHS 12/03/24 07:00 12/03/24 11:30 Insulin Human Regular (InsuLIN R) HS SC 12/03/24 22:00 Insulin Human Regular (InsuLIN R) AC SC 12/03/24 07:00 12/03/24 12:10 Dextrose 50 ml UD PRN IV Blood Sugar LESS THAN 60 12/03/24 01:15 Acetaminophen (Tylenol Tablet) 650 mg Q4HP PRN PO MILD PAIN (1-3 PAIN SCALE) 12/03/24 01:15 Sodium Chloride 1,000 ml @ 100 mls/hr Q10H IV 12/03/24 01:15 12/03/24 11:55 DC 12/03/24 01:51 Docusate Sodium (Colace Capsule) 100 mg BIDPRN PRN PO FOR CONSTIPATION 12/03/24 01:15 Insulin Glargine (Lantus) 14 units DAILY@1000 SC 12/03/24 10:00 12/03/24 11:03 Atorvastatin Calcium (Lipitor) 40 mg HS PO 12/03/24 22:00 Vital Signs Vital Signs Date Time Temp Pulse Resp B/P (MAP) Pulse Ox O2 Delivery O2 Flow Rate FiO2 12/03/24 11:20 98.9 76 16 155/69 (97) 99 98.9 12/03/24 11:20 Room Air* 0 21 Physical Exam DERMATOLOGIC EXAM: - Skin is dry and cool to the touch dry bilaterally. - Nails 1-5 of the bilateral foot are thickened, discolored, dystrophic, and tender to palpate with subungual debris - Hair loss noted to bilateral feet Wound #1: Location: Plantar right foot Measurements: Length 1 cm x width.1 cm x depth1 cm. Wound margins: Hyperkeratotic. Wound base: Full thickness. General Appearance: Necrotic Probes to Bone: No Purulent drainage: No Serous drainage: No Erythema: Erythema VASCULAR EXAM: - DP and PT pulses are palpable bilaterally. - ENGINE MECHANIC is brisk to all digits. - Feet are cool to touch compared to lower legs bilaterally. NEUROLOGIC EXAM: - Normal light touch sensation to the superficial peroneal, deep peroneal, sural, saphenous, and tibial nerve branches. - Protective sensation is diminished as tested with a 5.07 10g [place] bilaterally. MUSCULOSKELETAL EXAM: - No gross deformities - Muscle strength is 5/5 and active motion is pain-free and symmetrical bilaterally - No pain or crepitation with passive range of motion bilaterally to all major pedal joints Labs/Diagnostic Data Labs Test 12/03/24 06:40 12/03/24 06:21 12/02/24 17:55 Range/Units White Blood Count 10.5 4.4-10.8 10^3/uL Red Blood Count 3.81 L 4.0-5.20 10^6/uL Hemoglobin 11.3 L 12.2-16.2 g/dL Hematocrit 33.9 L 36.0-46.0 % Mean Corpuscular Volume 89.1 80.0-100.0 fL Mean Corpuscular Hemoglobin 29.8 28.0-32.0 pg Mean Corpuscular Hemoglobin Concent 33.4 32.0-36.0 g/dL Red Cell Distribution Width 13.3 11.8-14.3 % Platelet Count 420 140-450 10^3/uL Mean Platelet Volume 8.3 6.9-10.8 fL Neutrophils (%) (Auto) 67.8 37.0-80.0 % Lymphocytes (%) (Auto) 21.1 10.0-50.0 % Monocytes (%) (Auto) 8.8 0.0-12.0 % Eosinophils (%) (Auto) 1.7 0.0-7.0 % Basophils (%) (Auto) 0.6 0.0-2.0 % Neutrophils # (Auto) 7.1 1.6-8.6 10 ^3/uL Lymphocytes # (Auto) 2.2 0.4-5.4 10 ^3/uL Monocytes # (Auto) 0.9 0-1.3 10 ^3/uL Eosinophils # (Auto) 0.2 0-0.8 10 ^3/uL Basophils # (Auto) 0.1 0-0.2 10 ^3/uL Nucleated Red Blood Cells 0.0 % Prothrombin Time 11.1 9.3-11.8 sec Prothrombin Time INR 1.05 0.9-1.15 Sodium Level 137 136-145 mmol/L Potassium Level 3.6 3.5-5.1 mmol/L Chloride Level 104 98-107 mmol/L Carbon Dioxide Level 25 20-31 mmol/L Anion Gap 8 5-15 Blood Urea Nitrogen 17 9-23 mg/dL Creatinine 1.35 H 0.550-1.02 mg/dL Glomerular Filtration Rate Calc 45 >90 mL/min BUN/Creatinine Ratio 12.6 10.0-20.0 Serum Glucose 215 H 74-106 mg/dL Lactic Acid Level 1.1 0.4-2.0 mmol/L Calcium Level 9.0 8.7-10.4 mg/dL Total Bilirubin 0.3 0.2-1.0 mg/dL Aspartate Amino Transferase (AST) 20 13-40 U/L Alanine Aminotransferase (ALT) 14 7-40 U/L Alkaline Phosphatase 140 H 46-116 U/L Total Protein 6.5 5.7-8.2 g/dL Albumin 3.3 3.2-4.8 g/dL POC Glucose 210 H 70-106 mg/dl Urine Color Light-yellow Yellow Urine Clarity Clear Clear Urine pH 7.0 5.0-9.0 Urine Specific [place] 1.021 1.001-1.035 Urine Protein 3+ H Negative Urine Ketones Negative Negative Urine Blood Trace H Negative /uL Urine Nitrite Negative Negative Urine Bilirubin Negative Negative Urine Urobilinogen Normal Negative mg/dL Urine Leukocyte Esterase Negative Negative /uL Urine RBC 1 0 - 4 /hpf Urine WBC 2 0 - 5 /hpf Urine Squamous Epithelial Cells Few <5 /hpf Urine Bacteria None seen None Seen /hpf Urine Mucus Few None Seen Urine Creatinine 71.08 30.0-125.0 mg/dL Urine Sodium 64 40-220 mmol/L Urine Glucose 4+ H Normal mg/dL Urine Total Protein 681.4 H 1-14 mg/dL Problems(with codes): (1) Disequilibrium (2) Right sided numbness (3) Hyperglycemia (4) Cellulitis and abscess of foot Plan/Recommendation ASSESSMENT: Patient is a 59 year old seen on the floor for a worsening ulcer PLAN: - The patients chart was reviewed, clinical findings were discussed with the patient, the etiologies of the conditions were discussed in detail, and a treatment plan was agreed to at this time, with both oral and written instructions provided. - reviewed advanced imaging - discussed plan is to perform an incision and drainage - patient will be NPO at midnight - take him to the OR today - patient will return to the OR at a future date for closure - we will get cultures in the OR - can weightbear as tolerated in postoperative shoe All questions were answered and concerns addressed to the patient's satisfaction. The patient was given the phone number to the clinic and was told how to make contact with the clinic should any concerns or questions arise. Patient understands that if any questions or concerns arise prior to the next appointment, we should be contacted immediately. FOLLOW-UP: Continue to follow while inpatient Plan discussed with: Patient Date of Service: Dec 03, 2024 Billing Provider: RACHEL SINGH DPM Common Visit Codes: [id number] INP/OBS CARE (HIGH) RACHEL SINGH DPM Dec 03, 2024 12:30
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
[2024-12-03] MEDS ORDERED: fentaNYL CITRATE 100 MCG/2 ML VL ONE (13:37)
[2024-12-03] MEDS ORDERED: MIDAZOLAM HCL 2MG/2ML 2ml VIAL (1mg/ml) ONE (13:37)
[2024-12-03] MEDS: BUPIVACAINE 0.5% P/F INJ 10 ML VIAL ONE (13:44)
[2024-12-03] MEDS ORDERED: PROPOFOL 10 MG/ML 20 ML IV ONE (14:04)
[2024-12-03] MEDS ORDERED: DexAMETHasone SOD PHOS 10MG/1ML VIAL INJ ONE (14:04)
[2024-12-03 14:10] VITALS: RESP 20; O2SAT 94
[2024-12-03] MEDS ORDERED: MORPHINE SULFATE 4 MG/ML SYR/VIAL IV PRN (14:30)
[2024-12-03] MEDS ORDERED: ePHEDrine SULFATE 50 MG/ML AMP IV PRN (14:30)
[2024-12-03] MEDS ORDERED: hydrALAZINE HCL 20 MG/ML VL IV PRN (14:30)
[2024-12-03] MEDS ORDERED: MIDAZOLAM HCL 2MG/2ML 2ml VIAL (1mg/ml) IV PRN (14:30)
[2024-12-03] MEDS ORDERED: HYDROmorphone HCL 2 MG/ML VL/or syr IV PRN (14:30)
[2024-12-03 17:05] VITALS: BP 146/73; PULSE 80; RESP 17; TEMP 94.9; O2SAT 98
[2024-12-03] MEDS: ONDANSETRON HCL 4 MG/2 ML VIAL IV ONE (17:40)
[2024-12-03] MEDS: hydrALAZINE HCL 20 MG/ML VL ONE (17:41)
--- NOTE | 2024-12-03 19:30 | DVHCONRES ---
Date Seen: Dec 03, 2024 Resident Creating Document: ADRIANE HURD Jr., MD Referring Physician er Reason for Consultation peripheral vascular disease History of Present Illness This is a 59-year-old female with past medical history of diabetes mellitus, hypertension, hyperlipidemia, CKD and ischemic stroke presented to the hospital due to right foot swelling and pain. Per patient, she has the chronic ulcer on the right foot since 1.5 year. Per patient, 4 days back she has boiled some remedies and dipped his foot into the boiled fluid, later on it leads to his right foot redness and swelling. Patient denies any fever, nausea, vomiting, chest pain, chills, bleeding or any recent trauma. Patient is evaluated in the floor bed status post foot debridement today by Podiatry. Patient is right foot is wrapped. Patient has no complaints currently Past Medical History diabetes mellitus, hypertension, hyperlipidemia, CKD and ischemic stroke Past Surgical History Right foot debridement Family History: Diabetes mellitus G8 MOTHER G8 FATHER FHx: leukemia Hypertension G8 MOTHER G8 FATHER Social History Former smoker nondrinker Allergies: Coded Allergies: NO KNOWN ALLERGIES (Unverified , 10/28/24) Home Meds Active Scripts Ergocalciferol (VITAMIN D 29493 UNIT) 50,000 [place], [address] UNIT PO Q7D for 30 Days, #10 CAP Prov:BEENA PATE 10/31/24 Clopidogrel Bisulfate (CLOPIDOGREL) 75 Mg Tab, 75 MG PO DAILY for 30 Days, #30 TAB Prov:BEENA PATE [facility] 10/31/24 Atorvastatin Calcium (ATORVASTATIN CALCIUM) 20 Mg Tab, 40 MG PO HS for 30 Days, #60 TAB Prov:BEENA PATE 10/31/24 Aspirin (Aspirin Low Dose) 81 Mg Tab, 81 MG PO DAILY for 30 Days, #30 TAB Prov:BEENA PATE 10/31/24 Acetaminophen (Acetaminophen) 325 Mg Tab, 650 MG PO Q6HP PRN for 10 Days, #80 TAB Prov:BEENA PATE 10/31/24 Reported Medications Loratadine (Claritin) 10 Mg Tab, 1 TAB PO DAILY for 90 Days, #90 10/29/24 Insulin Aspart (Novolog Flexpen Relion) 100 Unit/Ml Inj, 10 UNIT SC BID for 75 Days, #15 10/29/24 Metformin Hydrochloride (Metformin Hcl) 1,000 Mg Tab, 1 TAB PO BID for 90 Days, #180 10/29/24 Fenofibrate (Fenofibrate Micronized) 200 Mg Cap, 1 CAP PO DAILY for 100 Days, #100 10/29/24 Semaglutide (Ozempic) 2 Mg/3 Ml Inj, 0.25 MG SC QWEEKLY for 56 Days, #3 10/29/24 Insulin Glargine (Basaglar Kwikpen) 100 Unit/Ml Inj, 10 UNIT SC HS for 75 Days, #9 10/29/24 Dapagliflozin Propanediol (Farxiga) 10 Mg Tab, 1 TAB PO DAILY for 90 Days, #90 10/29/24 Losartan Potassium (Losartan Potassium) 50 Mg Tab, 1 TAB PO DAILY for 90 Days, #90 10/29/24 Dorzolamide-Timolol (Dorzolamide Hcl/Timolol M) 1 Ml Eloisa, 1 DROP LEFTEYE BID for 60 Days, #10 10/29/24 Carboxymethylcellulose Sodium (Refresh Tears) 0.5 % Devin, 1-2 DROP EACHEYE QID for 30 Days, #15 10/29/24 Current Medications Current Medications Medications (Trade) Dose Ordered Sig/Mesfin Route PRN Reason Start Time Stop Time Status Last Admin Vancomycin HCl 0 ml @ 0 mls/hr UD IV 12/03/24 01:15 Cefepime HCl 50 ml @ 12.5 mls/hr Q12HR IV 12/03/24 10:00 12/03/24 10:29 Insulin Glargine (Lantus) 15 units HS SC 12/03/24 22:00 12/03/24 01:27 DC Diagnostic Test (Pha) (Accu-Chek Comfort Curve T) 1 strip ACHS 12/03/24 07:00 12/03/24 17:53 Insulin Human Regular (InsuLIN R) HS SC 12/03/24 22:00 Insulin Human Regular (InsuLIN R) AC SC 12/03/24 07:00 12/03/24 18:05 Dextrose 50 ml UD PRN IV Blood Sugar LESS THAN 60 12/03/24 01:15 Acetaminophen (Tylenol Tablet) 650 mg Q4HP PRN PO MILD PAIN (1-3 PAIN SCALE) 12/03/24 01:15 Sodium Chloride 1,000 ml @ 100 mls/hr Q10H IV 12/03/24 01:15 12/03/24 11:55 DC 12/03/24 01:51 Docusate Sodium (Colace Capsule) 100 mg BIDPRN PRN PO FOR CONSTIPATION 12/03/24 01:15 12/03/24 16:07 DC Insulin Glargine (Lantus) 14 units DAILY@1000 SC 12/03/24 10:00 12/03/24 11:03 Atorvastatin Calcium (Lipitor) 40 mg HS PO 12/03/24 22:00 Hydralazine HCl (Apresoline Injection) 5 mg Q10M PRN IV SBP>160 12/03/24 14:30 12/03/24 15:21 DC Morphine Sulfate 2 mg Q2HPRN PRN IV BREAKTHROUGH PAIN (7-10) 12/03/24 14:30 12/03/24 14:31 DC Midazolam HCl (Versed Injection) 1 mg Q10M PRN IV ANXIETY 12/03/24 14:30 12/03/24 15:11 DC Ephedrine Sulfate (ePHEDrine SULFATE) 10 mg Q10M PRN IV SBP LESS THAN 90 12/03/24 14:30 12/03/24 15:11 DC Hydromorphone HCl (Dilaudid Injection) 0.5 mg Q10M PRN IV SEVERE PAIN (7-10 PAIN SCALE) 12/03/24 14:30 12/03/24 15:11 DC Review of Systems General: patient denies fever, fatigue, weaknes, sweating, any recent changes in appetite and weight HEENT: No headaches, visiual changes, hearing loss, tinnitus, nasal congestion and discharge, and sore throat. Cardiovascular: Denies chest pain, palpitations, dyspnea on exertion, orthopnea, or claudication. Respiratory: No cough, and wheezing. Gastrointestinal: Denies nausea, vomiting, dysphagia, odynophagia, heartburn, abdominal pain, flatulence, bloating, diarrhea, constipation, change in stool, or blood in stool. Genitourinary: No dysuria, hematuria, discharge, frequency, urgency, nocturia, incontinence, and urinary retention. Endocrine: No heat or cold intolerance, polydipsia, polyuria, and polyphagia. Neurological: Reports right-sided upper limb numbness Psychiatric: Denies depression, anxiety,or insomnia. Musculoskeletal: Reports right foot pain Vital Signs Vital Signs Date Time Temp Pulse Resp B/P (MAP) Pulse Ox O2 Delivery O2 Flow Rate FiO2 12/03/24 17:05 94.9 80 17 146/73 (97) 98 94.9 12/03/24 14:15 Room Air 96 12/03/24 14:10 8.0 Physical Exam Head eyes ears nose and throat exam eyes are nonicteric conjunctiva is pink neck is supple no JVD no lymphadenopathy no carotid bruits lungs are clear to auscultation heart was regular rate and rhythm abdomen is soft nontender no pulsatile abdominal mass or bruits lower extremities she has 1+ edema bilaterally she has palpable femoral pulses bilaterally popliteal pulses are palpable. She has weakly palpable pedal pulses. Right foot is dressed with a fresh surgical dressing Labs/Diagnostic Data Labs Test 12/03/24 17:53 12/03/24 06:40 12/02/24 17:55 Range/Units POC Glucose 324 H 70-106 mg/dl White Blood Count 10.5 4.4-10.8 10^3/uL Red Blood Count 3.81 L 4.0-5.20 10^6/uL Hemoglobin 11.3 L 12.2-16.2 g/dL Hematocrit 33.9 L 36.0-46.0 % Mean Corpuscular Volume 89.1 80.0-100.0 fL Mean Corpuscular Hemoglobin 29.8 28.0-32.0 pg Mean Corpuscular Hemoglobin Concent 33.4 32.0-36.0 g/dL Red Cell Distribution Width 13.3 11.8-14.3 % Platelet Count 420 140-450 10^3/uL Mean Platelet Volume 8.3 6.9-10.8 fL Neutrophils (%) (Auto) 67.8 37.0-80.0 % Lymphocytes (%) (Auto) 21.1 10.0-50.0 % Monocytes (%) (Auto) 8.8 0.0-12.0 % Eosinophils (%) (Auto) 1.7 0.0-7.0 % Basophils (%) (Auto) 0.6 0.0-2.0 % Neutrophils # (Auto) 7.1 1.6-8.6 10 ^3/uL Lymphocytes # (Auto) 2.2 0.4-5.4 10 ^3/uL Monocytes # (Auto) 0.9 0-1.3 10 ^3/uL Eosinophils # (Auto) 0.2 0-0.8 10 ^3/uL Basophils # (Auto) 0.1 0-0.2 10 ^3/uL Nucleated Red Blood Cells 0.0 % Prothrombin Time 11.1 9.3-11.8 sec Prothrombin Time INR 1.05 0.9-1.15 Sodium Level 137 136-145 mmol/L Potassium Level 3.6 3.5-5.1 mmol/L Chloride Level 104 98-107 mmol/L Carbon Dioxide Level 25 20-31 mmol/L Anion Gap 8 5-15 Blood Urea Nitrogen 17 9-23 mg/dL Creatinine 1.35 H 0.550-1.02 mg/dL Glomerular Filtration Rate Calc 45 >90 mL/min BUN/Creatinine Ratio 12.6 10.0-20.0 Serum Glucose 215 H 74-106 mg/dL Lactic Acid Level 1.1 0.4-2.0 mmol/L Calcium Level 9.0 8.7-10.4 mg/dL Total Bilirubin 0.3 0.2-1.0 mg/dL Aspartate Amino Transferase (AST) 20 13-40 U/L Alanine Aminotransferase (ALT) 14 7-40 U/L Alkaline Phosphatase 140 H 46-116 U/L Total Protein 6.5 5.7-8.2 g/dL Albumin 3.3 3.2-4.8 g/dL Urine Color Light-yellow Yellow Urine Clarity Clear Clear Urine pH 7.0 5.0-9.0 Urine Specific [place] 1.021 1.001-1.035 Urine Protein 3+ H Negative Urine Ketones Negative Negative Urine Blood Trace H Negative /uL Urine Nitrite Negative Negative Urine Bilirubin Negative Negative Urine Urobilinogen Normal Negative mg/dL Urine Leukocyte Esterase Negative Negative /uL Urine RBC 1 0 - 4 /hpf Urine WBC 2 0 - 5 /hpf Urine Squamous Epithelial Cells Few <5 /hpf Urine Bacteria None seen None Seen /hpf Urine Mucus Few None Seen Urine Creatinine 71.08 30.0-125.0 mg/dL Urine Sodium 64 40-220 mmol/L Urine Glucose 4+ H Normal mg/dL Urine Total Protein 681.4 H 1-14 mg/dL CLINICAL HISTORY: diabetic foot TECHNIQUE: Right lower extremity arterial duplex exam was performed. Grayscale, color Doppler, and spectral waveform analysis was performed. COMPARISON: None FINDINGS: Right Lower Extremity: Moderate to marked arterial calcification. No flow visualized in the distal posterior tibial artery suspected occlusion. Biphasic waveforms are seen in the common femoral, profunda, popliteal arteries. Triphasic waveforms throughout the SFA. Monophasic waveforms in the posterior tibial, anterior tibial, and dorsalis pedis arteries. Prominent lymph nodes in the right inguinal region, with the largest measuring up to 2.6 x 1.0 cm echogenic oliver noted. 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 Peripheral arterial disease with monophasic waveforms in the right posterior tibial, dorsalis pedis, and distal anterior tibial arteries. No flow demonstrated in the posterior tibial artery, suspected occlusion. 2. Enlarged right inguinal lymph nodes, may be reactive, although correlation with clinical findings is needed. If there is clinical concern for malignancy, biopsy could be obtained. Assessment Status post right foot debridement with a history of a tibial peripheral vascular disease of the right leg. Would recommend watching the wound healing closely. At this point in time appears to have adequate circulation to heal surgical debridement. If for unforeseen reasons the wound is not continue to progress and heal then would consider peripheral angiogram of the right leg with possible tibial intervention. Plan/Recommendation Status post right foot debridement with a history of a tibial peripheral vascular disease of the right leg. Would recommend watching the wound healing closely. At this point in time appears to have adequate circulation to heal surgical debridement. If for unforeseen reasons the wound is not continue to progress and heal then would consider peripheral angiogram of the right leg with possible tibial intervention. Plan discussed with: Patient ADRIANE HURD Jr., MD Dec 03, 2024 19:30
[2024-12-03 20:00] VITALS: PULSE 78; RESP 18; O2SAT 95
[2024-12-03] MEDS: ATORVASTATIN 20 MG TAB PO SCH (21:47)
[2024-12-03 22:00] VITALS: BP 137/68; PULSE 80; RESP 18; TEMP 98.1; O2SAT 95
[2024-12-03] MEDS ORDERED: INSULIN LANTUS (GLARGINE) 1 /0.01ml (100units/ml) SC SCH (22:00)
[2024-12-04] VITALS (8 sets, daily range): BP systolic 130–173; BP diastolic 66–84; PULSE 68–87; RESP 16–19; TEMP 97.4–98.3; O2SAT 94–98
[2024-12-04 09:25] LABS: Basophils # (auto) 0 10 ^3/uL (0-0.2); Basophils % (auto) 0.1 % (0.0-2.0); Eosinophils # (auto) 0 10 ^3/uL (0-0.8); Hematocrit 34.4 % (36.0-46.0); Hemoglobin 11.5 g/dL (12.2-16.2); Lymphocytes # (auto) 1.2 10 ^3/uL (0.4-5.4); Lymphocytes % (auto) 8.8 % (10.0-50.0); Mean Corpuscular Hemoglobin 29.3 pg (28.0-32.0); Mean Corpuscular Hgb Conc. 33.3 g/dL (32.0-36.0); Monocytes # (auto) 0.5 10 ^3/uL (0-1.3); Monocytes % (auto) 3.9 % (0.0-12.0); Neutrophils # (auto) 11.9 10 ^3/uL (1.6-8.6); Neutrophils % (auto) 87.2 % (37.0-80.0); Platelet Count (auto) 462 10^3/uL (140-450); Red Blood Cells 3.91 10^6/uL (4.0-5.20); Red Cell Distribution Width 13.1 % (11.8-14.3); White Blood Cell 13.6 10^3/uL (4.4-10.8)
[2024-12-04 09:45] LABS: Alanine Aminotransferase 13 U/L (7-40); Anion Gap 7 (5-15); BUN/Creatinine Ratio 16.8 (10.0-20.0); Blood Urea Nitrogen 22 mg/dL (9-23); Carbon Dioxide 24 mmol/L (20-31); Chloride 105 mmol/L (98-107); Potassium 4.2 mmol/L (3.5-5.1)
[2024-12-04 09:46] LABS: Alkaline Phosphatase 135 U/L (46-116); Aspartate Aminotransferase < 8 U/L (13-40); Bilirubin, Total 0.2 mg/dL (0.2-1.0); Glucose 315 mg/dL (74-106); Sodium 136 mmol/L (136-145); Total Protein 5.5 g/dL (5.7-8.2)
[2024-12-04 09:47] LABS: Albumin 2.8 g/dL (3.2-4.8)
[2024-12-04] MEDS: INSULIN LANTUS (GLARGINE) 1 /0.01ml (100units/ml) SC SCH (10:53)
[2024-12-04] MEDS ORDERED: VANCOMYCIN 1GM/250ML KIT 250 ML IV SCH (11:00)
--- NOTE | 2024-12-04 14:05 | DVHPN2 ---
Subjective This is a 59-year-old female with past medical history of diabetes mellitus, hypertension, hyperlipidemia, CKD and ischemic stroke presented to the hospital due to right foot swelling and pain. Per patient, she has the chronic ulcer on the right foot since 1.5 year. Per patient, 4 days back she has boiled some remedies and dipped his foot into the boiled fluid, later on it leads to his right foot redness and swelling. Patient denies any fever, nausea, vomiting, chest pain, chills, bleeding or any recent trauma. Changes from previous H/P or p: No Changes Objective Vitals Vital Signs Date Time Temp Pulse Resp B/P (MAP) Pulse Ox O2 Delivery O2 Flow Rate FiO2 12/04/24 09:00 97.8 68 17 160/79 (106) 95 97.8 12/04/24 08:20 Room Air* 0 21 Intake/Output Intake and Output 12/04/24 07:00 Intake Total 940 ml Balance 940 ml Intake Oral 740 ml IV Total 200 ml # Voids 3 Exam DERMATOLOGIC EXAM: - Skin is dry and cool to the touch dry bilaterally. - Nails 1-5 of the bilateral foot are thickened, discolored, dystrophic, and tender to palpate with subungual debris - Hair loss noted to bilateral feet Wound #1: Location: Plantar right foot Measurements: Length 1 cm x width.1 cm x depth1 cm. Wound margins: Hyperkeratotic. Wound base: Full thickness. General Appearance: Necrotic Probes to Bone: No Purulent drainage: No Serous drainage: No Erythema: Erythema VASCULAR EXAM: - DP and PT pulses are palpable bilaterally. - STEAM SERVICE INSPECTOR is brisk to all digits. - Feet are cool to touch compared to lower legs bilaterally. NEUROLOGIC EXAM: - Normal light touch sensation to the superficial peroneal, deep peroneal, sural, saphenous, and tibial nerve branches. - Protective sensation is diminished as tested with a 5.07 10g [place] bilaterally. MUSCULOSKELETAL EXAM: - No gross deformities - Muscle strength is 5/5 and active motion is pain-free and symmetrical bilaterally - No pain or crepitation with passive range of motion bilaterally to all major pedal joints Medications Current Medications Medications Dose Ordered Sig/Mesfin Route Start Time Stop Time Status Last Admin Dose Admin Vancomycin HCl 0 ml @ 0 mls/hr UD IV 12/03/24 01:15 Cefepime HCl 50 ml @ 12.5 mls/hr Q12HR IV 12/03/24 10:00 12/04/24 10:33 12.5 MLS/HR Diagnostic Test (Pha) 1 strip ACHS 12/03/24 07:00 12/04/24 11:42 1 STRIP Insulin Human Regular HS SC 12/03/24 22:00 12/03/24 21:54 10 UNITS Insulin Human Regular AC SC 12/03/24 07:00 12/04/24 11:45 15 UNITS Dextrose 50 ml UD PRN IV 12/03/24 01:15 Acetaminophen 650 mg Q4HP PRN PO 12/03/24 01:15 Atorvastatin Calcium 40 mg HS PO 12/03/24 22:00 12/03/24 21:47 40 MG Vancomycin HCl 250 ml @ 250 mls/hr Q18H IV 12/04/24 11:00 Insulin Glargine 20 units DAILY@1000 SC 12/04/24 10:30 12/04/24 10:53 20 UNITS Losartan Potassium 50 mg DAILY PO 12/05/24 10:00 Laboratory Results Laboratory Tests 12/04/24 08:14 Chemistry Test 12/04/24 08:14 Albumin 2.8 g/dL (3.2-4.8) L Calcium Level 9.0 mg/dL (8.7-10.4) Total Protein 5.5 g/dL (5.7-8.2) L LFT Test 12/04/24 08:14 Alanine Aminotransferase (ALT) 13 U/L (7-40) Alkaline Phosphatase 135 U/L (46-116) H Aspartate Amino Transferase (AST) < 8 U/L (13-40) L Total Bilirubin 0.2 mg/dL (0.2-1.0) Urinalysis Test 12/02/24 17:55 Urine Color Light-yellow (Yellow) Urine Clarity Clear (Clear) Urine pH 7.0 (5.0-9.0) Urine Specific [place] 1.021 (1.001-1.035) Urine Protein 3+ (Negative) H Urine Ketones Negative (Negative) Urine Blood Trace /uL (Negative) H Urine Nitrite Negative (Negative) Urine Bilirubin Negative (Negative) Urine Urobilinogen Normal mg/dL (Negative) Urine Leukocyte Esterase Negative /uL (Negative) Urine RBC 1 /hpf (0 - 4) Urine WBC 2 /hpf (0 - 5) Urine Squamous Epithelial Cells Few /hpf (<5) Urine Bacteria None seen /hpf (None Seen) Urine Mucus Few (None Seen) Urine Creatinine 71.08 mg/dL (30.0-125.0) Urine Sodium 64 mmol/L (40-220) Urine Glucose 4+ mg/dL (Normal) H Urine Total Protein 681.4 mg/dL (1-14) H Microbiology Microbiology Date/Time Source Procedure Growth Status 12/03/24 13:51 Foot Right Gram Stain - Final Resulted 12/03/24 13:51 Foot Right Anaerobic Culture - Preliminary Resulted 12/03/24 13:51 Foot Right Aerobic Culture - Preliminary Resulted 12/03/24 06:40 Blood Blood Culture - Preliminary NO GROWTH AFTER 24 HOURS OF INCUBATION. Resulted Assessment/Plan Assessment/Plan ASSESSMENT: Patient is a year old seen on the floor 1 day s/p from a right foot incision drainage PLAN: - The patients chart was reviewed, clinical findings were discussed with the patient, the etiologies of the conditions were discussed in detail, and a treatment plan was agreed to at this time, with both oral and written instructions provided. - reviewed advanced imaging - discussed plan is to perform an incision and drainage tomorrow - patient will be NPO at midnight - take him to the OR tomorrow - patient will return to the OR at a future date for closure - we will get cultures in the OR - can weightbear as tolerated in postoperative shoe All questions were answered and concerns addressed to the patient's satisfaction. The patient was given the phone number to the clinic and was told how to make contact with the clinic should any concerns or questions arise. Patient understands that if any questions or concerns arise prior to the next appointment, we should be contacted immediately. FOLLOW-UP: Continue to follow while inpatient Plan discussed with: Patient My Orders Orders - RACHEL SINGH DPM Procedure Category Date Status Time Consistent DIET 12/03/24 Transmitted Carb(Ccho)Diabetes Dinner Npo After Midnight DIET 12/04/24 Verified Dinner Obtain Consent For: ORDERS 12/04/24 Verified 14:03 Problem List: (1) Hyperglycemia (2) Cellulitis and abscess of foot (3) Disequilibrium (4) Right sided numbness Date of Service: Dec 04, 2024 Billing Provider: MUSSON,RACHEL D DPM Common Visit Codes: [id number] INP/OBS CARE(MOD) RACHEL SINGH DPM Dec 04, 2024 14:04
--- NOTE | 2024-12-04 15:33 | DVHPNRES ---
Progress Note Date Seen: Dec 04, 2024 Resident Creating Document: LEONARD SWANSON RESIDENT Has the PT tested + for MRSA If YES, has PT been informed?: No Medical Necessity Reason Pt with a Central, PICC or Fol: No Subjective Review of Systems This is a 59-year-old female with past medical history of diabetes mellitus, hypertension, hyperlipidemia, CKD and ischemic stroke presented to the hospital due to right foot swelling and pain. Per patient, she has the chronic ulcer on the right foot since 1.5 year. Per patient, 4 days back she has boiled chloride, bicarbonate and dipped his foot into the hot fluid, later on it leads to his right foot redness and swelling. Patient denies any fever, nausea, vomiting, chest pain, chills, bleeding or any recent trauma. PMHx: diabetes mellitus, hypertension, hyperlipidemia, CKD and ischemic stroke PSHx: Noncontributory Family history: Noncontributing Social history: Patient lives with her boyfriend at home, ex-smoker, denies alcohol or any drug use Home medication: Atorvastatin, aspirin, clopidogrel, Ozempic, per patient her PCP stopped insulin 5 months back Objective vital signs Vital Sign Date Time Temp Pulse Resp B/P (MAP) Pulse Ox O2 Delivery O2 Flow Rate FiO2 12/04/24 13:00 98.1 80 19 157/84 (108) 98 98.1 12/04/24 08:20 Room Air* 0 21 Total Intake and Output 12/03/24 12/03/24 12/04/24 15:00 23:00 07:00 Intake Total 200 ml 500 ml 240 ml Balance 200 ml 500 ml 240 ml medications Current Medications Medications Dose Ordered Sig/Mesfin Route Start Time Stop Time Status Last Admin Dose Admin Vancomycin HCl 0 ml @ 0 mls/hr UD IV 12/03/24 01:15 Cefepime HCl 50 ml @ 12.5 mls/hr Q12HR IV 12/03/24 10:00 12/04/24 10:33 12.5 MLS/HR Diagnostic Test (Pha) 1 strip ACHS 12/03/24 07:00 12/04/24 11:42 1 STRIP Insulin Human Regular HS SC 12/03/24 22:00 12/03/24 21:54 10 UNITS Insulin Human Regular AC SC 12/03/24 07:00 12/04/24 11:45 15 UNITS Dextrose 50 ml UD PRN IV 12/03/24 01:15 Acetaminophen 650 mg Q4HP PRN PO 12/03/24 01:15 Atorvastatin Calcium 40 mg HS PO 12/03/24 22:00 12/03/24 21:47 40 MG Vancomycin HCl 250 ml @ 250 mls/hr Q18H IV 12/04/24 11:00 Insulin Glargine 20 units DAILY@1000 SC 12/04/24 10:30 12/04/24 10:53 20 UNITS Losartan Potassium 50 mg DAILY PO 12/05/24 10:00 Examination General Appearance: Alert, Oriented X3, Cooperative, No acute distress HEENT: Atraumatic, PERRLA, EOMI, Mucous membrane moist/pink Respiratory: Clear to auscultation, Normal air movement Cardiovascular: Regular rate, Normal S1, Normal S2, No murmurs, no chest wall tenderness Abdominal: Normal bowel sounds, Soft, No tenderness, No hepatospenomegaly, No masses Extremities: Right foot and swelling, second degree burn in the top of the foot there is an ulcer on the sole with purulent discharge Skin: No rashes, No breakdown, No significant lesion Neuro: Right-sided residual weakness due to previous ischemic stroke laboratory and microbiology Laboratory Tests 12/04/24 08:14 Test 12/04/24 08:14 Range/Units Serum Glucose 315 H 74-106 mg/dL Microbiology Date/Time Source Procedure Growth Status 12/03/24 13:51 Foot Right Gram Stain - Final Resulted 12/03/24 13:51 Foot Right Anaerobic Culture - Preliminary Resulted 12/03/24 13:51 Foot Right Aerobic Culture - Preliminary Resulted 12/03/24 06:40 Blood Blood Culture - Preliminary NO GROWTH AFTER 24 HOURS OF INCUBATION. Resulted Problem List/Assessment/Plan Problem List/Assessment/Plan S/p debridement of 2 degree burn in the top of the foot: chemical Right foot cellulitis Diabetic foot Ruled out osteomyelitis CT scan showed, mild to moderate diffuse soft tissue edema. No subcutaneous emphysema. Plantar soft tissue ulcer near the 4th metatarsal head MRI: 1. Wounds adjacent to the 4th metatarsal head and 5th digit as detailed above with surrounding soft tissue inflammatory changes, likely cellulitis. 2. Complex fluid collection along the plantar aspect of the proximal phalanx of the 5th digit, likely phlegmon /developing abscess. Limited evaluation for abscess on noncontrast enhanced exam. 3. Mild t2/stir hyperintense signal involving the 5th digit proximal phalanx 4th metatarsal head likely reactive marrow changes to the adjacent infection, with no T1 hypointense signal to suggest osteomyelitis at this time Empiric antibiotic of vancomycin and cefepime Surgery yesterday: debridement by Dr Singh New surgical time tomorrow Wound culture: pending Blood culture negative prelim Wound consult Uncontrolled Diabetes mellitus type 2, with hyperglycemia Hb A1c from 10/29/2024, shows 11.6 Patient is using Ozempic at home Per patient her primary care stopped insulin 5 months back Injection Lantus 20 units daily Insulin regular moderate SS PAD No flow demonstrated in the posterior tibial artery, suspected occlusion History of ischemic stroke continue aspirin and atorvastatin Per Vascular surgery: no need of intervention for now Hypertension Amlodipine Mild hyponatremia, monitoring SERAFIN, on CKD grade 3 a, 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 No hydronephrosis. Creatinine is improving Losartan Mild anemia, normocytic normochromic Monitoring Dyslipidemia Atorvastatin DIET: Diabetic diet DVT PROPHYLAXIS: Patient is mobile, no indication for anticoagulant CODE STATUS: Goal of care discussed for more than 27 minutes, full code DISPOSITION: Med surge Patient's status discussed with patient. Case discussed with Dr. Jesus Time spent on care 23 min Plan discussed with: Patient, Other My Orders My Orders Orders - LEONARD SWANSON RESIDENT Procedure Category Date Status Time Insulin Lantus PHA 12/04/24 In Process (Glargine) (Lantus) 10:30 Losartan Tablet PHA 12/05/24 In Process (Cozaar Tablet) 10:00 * Picc Line Consult CONS 12/04/24 Transmitted 13:59 * Dietary Consult CONS 12/04/24 Transmitted 14:26 Date of Service: Dec 04, 2024 Billing Provider: JOSE FRANCISCO JESUS MD Common Visit Codes: [id number] INP/OBS CARE(HIGH) LEONARD SWANSON RESIDENT Dec 04, 2024 15:32 JOSE FRANCISCO JESUS MD Dec 04, 2024 16:55
[2024-12-04] MEDS: VANCOMYCIN 1GM/250ML KIT 250 ML IV SCH (17:54)
[2024-12-04] MEDS: ACETAMINOPHEN 325 MG TAB PO PRN (23:41)
[2024-12-05] VITALS (8 sets, daily range): BP systolic 142–171; BP diastolic 65–85; PULSE 67–95; RESP 16–19; TEMP 97.6–98.1; O2SAT 94–98
[2024-12-05 06:45] LABS: Eosinophils # (auto) 0.1 10 ^3/uL (0-0.8); Eosinophils % (auto) 0.6 % (0.0-7.0); Hemoglobin 11.2 g/dL (12.2-16.2); Mean Corpuscular Volume 87.7 fL (80.0-100.0); Monocytes # (auto) 0.8 10 ^3/uL (0-1.3); Neutrophils # (auto) 9.1 10 ^3/uL (1.6-8.6); Red Cell Distribution Width 13.3 % (11.8-14.3); White Blood Cell 12.8 10^3/uL (4.4-10.8)
[2024-12-05 06:49] LABS: Basophils # (auto) 0 10 ^3/uL (0-0.2); Basophils % (auto) 0.3 % (0.0-2.0); Hematocrit 32.9 % (36.0-46.0); Lymphocytes # (auto) 2.7 10 ^3/uL (0.4-5.4); Lymphocytes % (auto) 21.5 % (10.0-50.0); Mean Corpuscular Hemoglobin 29.8 pg (28.0-32.0); Monocytes % (auto) 6.3 % (0.0-12.0); Neutrophils % (auto) 71.3 % (37.0-80.0); Nucleated Red Blood Cells % 0.1 %; Platelet Count (auto) 471 10^3/uL (140-450); Red Blood Cells 3.76 10^6/uL (4.0-5.20)
[2024-12-05 07:03] LABS: Anion Gap 6 (5-15); Calcium 9.3 mg/dL (8.7-10.4); Carbon Dioxide 25 mmol/L (20-31)
[2024-12-05 07:08] LABS: BUN/Creatinine Ratio 18.4 (10.0-20.0); Blood Urea Nitrogen 21 mg/dL (9-23)
[2024-12-05 07:13] LABS: Chloride 107 mmol/L (98-107); Glucose 124 mg/dL (74-106); Potassium 3.3 mmol/L (3.5-5.1); Sodium 138 mmol/L (136-145)
[2024-12-05] MEDS: LOSARTAN POTASSIUM 50 MG TAB PO SCH (10:25)
[2024-12-05] MEDS: VANCOMYCIN HCL 1000 MG VL ONE (12:00)
[2024-12-05] MEDS: BUPIVACAINE HCL 0.25% P/F 10 ML VIAL ONE (12:18)
--- NOTE | 2024-12-05 12:32 | DVHOP2 ---
Operative Report - 2 Report Details Date: 12/03/24 Preop Diagnosis: 1. Right foot abscess 2. Right foot osteomyelitis 3. Right foot cellulitis 4. Right foot gas gangrene Postop Diagnosis: Same as preop Surgeon: Rachel Singh MD Anesthesiologist: See anesthesia Anesthesia: Mac Consent: The patient was informed of the risks and benefits of the procedure. These include but are not limited to complications of anesthesia, postoperative infection, incomplete relief of symptoms, recurrence of symptoms, damage to blood vessels, nerves and tendons, deep venous thrombosis, pulmonary embolism and possible need for repeat surgery in the future. Complications: None Estimated Blood Loss: Minimal Fluids: See anesthesia Findings: Consistent with the diagnosis Indications for Surgery: Worsening right foot wound Name of Procedure Performed 1. Right foot I&D to bone (24566) Procedure Details Procedure Details: PRE-PROCEDURE INFORMATION: In the pre-op holding area, the extremity to be operated on was clearly marked and the patient verified correct laterality of the marking. The patient was transferred to the OR table and placed in a supine position. A timeout was performed in which identification of the correct patient, procedure, location, and materials was done. The right foot and leg were prepped and draped in normal sterile fashion. DESCRIPTION OF PROCEDURE: Attention was directed to the right where area of fluctuance was noted. An incision was made over this area and was deepened through blunt dissection. The incision was deepened to the level of abscess and bone. Care was taken to the dissection to avoid any neurovascular and tendinous structures. The incision was deepened to the bone, and the abscess appeared to be purulent fluid consistent with pus. The cortices of the bone was then removed with Prashant an all necrotic tissue. After the abscess was drained, the area was irrigated with 3 L normal saline using cysto tubing. Deep cultures were then obtained from the wound. The area was then inspected and any areas of tracking, especially along the tendons were also drained. The wound was packed with Betadine-soaked gauze and we will need to be closed at a later date. POSTOPERATIVE INFORMATION: The patient tolerated the above noted procedure and anesthesia well and was transferred to the PACU with vital signs stable, and vascular status intact with capillary refill intact to all digits. Cultures wer e taken of the patient will return to the floor for IV antibiotics. Condition Good Disposition Still a Patient RACHEL SINGH DPM Dec 05, 2024 12:32
--- NOTE | 2024-12-05 12:33 | DVHOP2 ---
Operative Report - 2 Report Details Date: 12/05/24 Preop Diagnosis: 1. Right foot abscess 2. Right foot osteomyelitis 3. Right foot cellulitis 4. Right foot gas gangrene Postop Diagnosis: Same as preop Surgeon: Rachel Singh MD Anesthesiologist: See anesthesia Anesthesia: Mac Consent: The patient was informed of the risks and benefits of the procedure. These include but are not limited to complications of anesthesia, postoperative infection, incomplete relief of symptoms, recurrence of symptoms, damage to blood vessels, nerves and tendons, deep venous thrombosis, pulmonary embolism and possible need for repeat surgery in the future. Complications: None Estimated Blood Loss: Minimal Fluids: See anesthesia Findings: Consistent with diagnosis Indications for Surgery: Worsening right foot wound Name of Procedure Performed 1. Right foot I&D to bone (75921) Procedure Details Procedure Details: PRE-PROCEDURE INFORMATION: In the pre-op holding area, the extremity to be operated on was clearly marked and the patient verified correct laterality of the marking. The patient was transferred to the OR table and placed in a supine position. A timeout was performed in which identification of the correct patient, procedure, location, and materials was done. The right foot and leg were prepped and draped in normal sterile fashion. DESCRIPTION OF PROCEDURE: Attention was directed to the right where previous incision was made. An incision was made over this area and was deepened through blunt dissection. The incision was deepened to the level of abscess and bone. Care was taken to the dissection to avoid any neurovascular and tendinous structures. The incision was deepened to the bone, and the abscess appeared to be purulent fluid consistent with pus. The cortices of the bone was then removed with Prashant an all necrotic tissue. After the abscess was drained, the area was irrigated with 3 L normal saline using cysto tubing. Deep cultures were then obtained from the wound. The area was then inspected and any areas of tracking, especially along the tendons were also drained. The wound was packed with Betadine-soaked gauze and we will need to be closed at a later date. POSTOPERATIVE INFORMATION: The patient tolerated the above noted procedure and anesthesia well and was transferred to the PACU with vital signs stable, and vascular status intact with capillary refill intact to all digits. Cultures were taken of the patient will return to the floor for IV antibiotics. Condition Good Disposition Still a Patient RACHEL SINGH DPM Dec 05, 2024 12:33
--- NOTE | 2024-12-05 12:34 | DVHPN2 ---
Subjective This is a 59-year-old female with past medical history of diabetes mellitus, hypertension, hyperlipidemia, CKD and ischemic stroke presented to the hospital due to right foot swelling and pain. Per patient, she has the chronic ulcer on the right foot since 1.5 year. Per patient, 4 days back she has boiled some remedies and dipped his foot into the boiled fluid, later on it leads to his right foot redness and swelling. Patient denies any fever, nausea, vomiting, chest pain, chills, bleeding or any recent trauma. Changes from previous H/P or p: No Changes Objective Vitals Vital Signs Date Time Temp Pulse Resp B/P (MAP) Pulse Ox O2 Delivery O2 Flow Rate FiO2 12/05/24 11:57 97.9 72 17 151/80 (103) 98 97.9 12/04/24 20:00 Room Air* 0 21 Intake/Output Intake and Output 12/05/24 07:00 Intake Total 1325 ml Balance 1325 ml Intake Oral 1275 ml IV Total 50 ml # Voids 6 Exam DERMATOLOGIC EXAM: - Skin is dry and cool to the touch dry bilaterally. - Nails 1-5 of the bilateral foot are thickened, discolored, dystrophic, and tender to palpate with subungual debris - Hair loss noted to bilateral feet Wound #1: Location: Plantar right foot Measurements: Length 1 cm x width.1 cm x depth1 cm. Wound margins: Hyperkeratotic. Wound base: Full thickness. General Appearance: Necrotic Probes to Bone: No Purulent drainage: No Serous drainage: No Erythema: Erythema VASCULAR EXAM: - DP and PT pulses are palpable bilaterally. - MANAGER TRANSFUSION is brisk to all digits. - Feet are cool to touch compared to lower legs bilaterally. NEUROLOGIC EXAM: - Normal light touch sensation to the superficial peroneal, deep peroneal, sural, saphenous, and tibial nerve branches. - Protective sensation is diminished as tested with a 5.07 10g [place] bilaterally. MUSCULOSKELETAL EXAM: - No gross deformities - Muscle strength is 5/5 and active motion is pain-free and symmetrical bilaterally - No pain or crepitation with passive range of motion bilaterally to all major pedal joints Medications Current Medications Medications Dose Ordered Sig/Mesfin Route Start Time Stop Time Status Last Admin Dose Admin Vancomycin HCl 0 ml @ 0 mls/hr UD IV 12/03/24 01:15 Cefepime HCl 50 ml @ 12.5 mls/hr Q12HR IV 12/03/24 10:00 12/05/24 10:24 12.5 MLS/HR Diagnostic Test (Pha) 1 strip ACHS 12/03/24 07:00 12/05/24 11:18 1 STRIP Insulin Human Regular HS SC 12/03/24 22:00 12/04/24 22:40 6 UNITS Insulin Human Regular AC SC 12/03/24 07:00 12/04/24 17:11 9 UNITS Dextrose 50 ml UD PRN IV 12/03/24 01:15 Acetaminophen 650 mg Q4HP PRN PO 12/03/24 01:15 12/04/24 23:41 650 MG Atorvastatin Calcium 40 mg HS PO 12/03/24 22:00 12/04/24 22:04 40 MG Insulin Glargine 20 units DAILY@1000 SC 12/04/24 10:30 12/05/24 10:36 20 UNITS Losartan Potassium 50 mg DAILY PO 12/05/24 10:00 12/05/24 10:25 50 MG Vancomycin HCl 250 ml @ 250 mls/hr Q18H IV 12/04/24 18:00 12/04/24 17:54 250 MLS/HR Laboratory Results Laboratory Tests 12/05/24 05:20 Chemistry Test 12/05/24 05:20 Calcium Level 9.3 mg/dL (8.7-10.4) Urinalysis Test 12/02/24 17:55 Urine Color Light-yellow (Yellow) Urine Clarity Clear (Clear) Urine pH 7.0 (5.0-9.0) Urine Specific [place] 1.021 (1.001-1.035) Urine Protein 3+ (Negative) H Urine Ketones Negative (Negative) Urine Blood Trace /uL (Negative) H Urine Nitrite Negative (Negative) Urine Bilirubin Negative (Negative) Urine Urobilinogen Normal mg/dL (Negative) Urine Leukocyte Esterase Negative /uL (Negative) Urine RBC 1 /hpf (0 - 4) Urine WBC 2 /hpf (0 - 5) Urine Squamous Epithelial Cells Few /hpf (<5) Urine Bacteria None seen /hpf (None Seen) Urine Mucus Few (None Seen) Urine Creatinine 71.08 mg/dL (30.0-125.0) Urine Sodium 64 mmol/L (40-220) Urine Glucose 4+ mg/dL (Normal) H Urine Total Protein 681.4 mg/dL (1-14) H Microbiology Microbiology Date/Time Source Procedure Growth Status 12/03/24 13:51 Foot Right Gram Stain - Final Resulted 12/03/24 13:51 Foot Right Anaerobic Culture - Preliminary Resulted 12/03/24 13:51 Aerobic Culture - Preliminary Escherichia coli Resulted 12/03/24 06:40 Blood Blood Culture - Preliminary NO GROWTH AFTER 48 HOURS OF INCUBATION. Resulted Assessment/Plan Assessment/Plan ASSESSMENT: Patient is a year old seen on the floor 2 day s/p from a right foot incision drainage PLAN: - The patients chart was reviewed, clinical findings were discussed with the patient, the etiologies of the conditions were discussed in detail, and a treatment plan was agreed to at this time, with both oral and written instructions provided. - reviewed advanced imaging - discussed plan is to perform an incision and drainage tomorrow - patient will be NPO at midnight - take him to the OR today - patient will return to the OR at a future date for closure - we will get cultures in the OR - can weightbear as tolerated in postoperative shoe All questions were answered and concerns addressed to the patient's satisfaction. The patient was given the phone number to the clinic and was told how to make contact with the clinic should any concerns or questions arise. Patient understands that if any questions or concerns arise prior to the next appointment, we should be contacted immediately. FOLLOW-UP: Continue to follow while inpatient Plan discussed with: Patient My Orders Orders - RACHEL SINGH DPM Procedure Category Date Status Time Npo After Midnight DIET 12/04/24 Transmitted Dinner Obtain Consent For: ORDERS 12/04/24 Transmitted 14:03 Problem List: (1) Hyperglycemia (2) Cellulitis and abscess of foot (3) Disequilibrium (4) Right sided numbness Date of Service: Dec 05, 2024 Billing Provider: RACHEL SINGH DPM Common Visit Codes: [id number] INP/OBS CARE(MOD) RACHEL SINGH DPM Dec 05, 2024 12:34
[2024-12-05] MEDS: POTASSIUM CHL 20MEQ/100ML 100 ML IV SCH (18:00)
--- NOTE | 2024-12-05 18:32 | DVHPNRES ---
Progress Note Date Seen: Dec 05, 2024 Resident Creating Document: LEONARD SWANSON RESIDENT Has the PT tested + for MRSA If YES, has PT been informed?: No Medical Necessity Reason Pt with a Central, PICC or Fol: No Subjective Review of Systems This is a 59-year-old female with past medical history of diabetes mellitus, hypertension, hyperlipidemia, CKD and ischemic stroke presented to the hospital due to right foot swelling and pain. Per patient, she has the chronic ulcer on the right foot since 1.5 year. Per patient, 4 days back she has boiled chloride, bicarbonate and dipped his foot into the hot fluid, later on it leads to his right foot redness and swelling. Patient denies any fever, nausea, vomiting, chest pain, chills, bleeding or any recent trauma. PMHx: diabetes mellitus, hypertension, hyperlipidemia, CKD and ischemic stroke PSHx: Noncontributory Family history: Noncontributing Social history: Patient lives with her boyfriend at home, ex-smoker, denies alcohol or any drug use Home medication: Atorvastatin, aspirin, clopidogrel, Ozempic, per patient her PCP stopped insulin 5 months back Objective vital signs Vital Sign Date Time Temp Pulse Resp B/P (MAP) Pulse Ox O2 Delivery O2 Flow Rate FiO2 12/05/24 16:42 98.1 75 17 149/73 (98) 94 98.1 12/05/24 08:20 Room Air* 0 21 Total Intake and Output 12/04/24 12/04/24 12/05/24 14:59 22:59 06:59 Intake Total 50 ml 875 ml 400 ml Balance 50 ml 875 ml 400 ml medications Current Medications Medications Dose Ordered Sig/Mesfin Route Start Time Stop Time Status Last Admin Dose Admin Vancomycin HCl 0 ml @ 0 mls/hr UD IV 12/03/24 01:15 Cefepime HCl 50 ml @ 12.5 mls/hr Q12HR IV 12/03/24 10:00 12/05/24 10:24 12.5 MLS/HR Diagnostic Test (Pha) 1 strip ACHS 12/03/24 07:00 12/05/24 17:00 1 STRIP Insulin Human Regular HS SC 12/03/24 22:00 12/04/24 22:40 6 UNITS Insulin Human Regular AC SC 12/03/24 07:00 12/05/24 17:39 9 UNITS Dextrose 50 ml UD PRN IV 12/03/24 01:15 Acetaminophen 650 mg Q4HP PRN PO 12/03/24 01:15 12/05/24 14:39 650 MG Atorvastatin Calcium 40 mg HS PO 12/03/24 22:00 12/04/24 22:04 40 MG Insulin Glargine 20 units DAILY@1000 SC 12/04/24 10:30 12/05/24 10:36 20 UNITS Losartan Potassium 50 mg DAILY PO 12/05/24 10:00 12/05/24 10:25 50 MG Vancomycin HCl 250 ml @ 250 mls/hr Q18H IV 12/04/24 18:00 12/05/24 14:30 250 MLS/HR Potassium Chloride 100 ml @ 50 mls/hr Q2H IV 12/05/24 17:30 12/05/24 21:29 12/05/24 18:00 50 MLS/HR Examination General Appearance: Alert, Oriented X3, Cooperative, No acute distress HEENT: Atraumatic, PERRLA, EOMI, Mucous membrane moist/pink Respiratory: Clear to auscultation, Normal air movement Cardiovascular: Regular rate, Normal S1, Normal S2, No murmurs, no chest wall tenderness Abdominal: Normal bowel sounds, Soft, No tenderness, No hepatospenomegaly, No masses Extremities: Right foot and swelling, second degree burn in the top of the foot there is an ulcer on the sole with purulent discharge Skin: No rashes, No breakdown, No significant lesion Neuro: Right-sided residual weakness due to previous ischemic stroke laboratory and microbiology Laboratory Tests 12/05/24 05:20 Test 12/05/24 05:20 Range/Units Serum Glucose 124 H 74-106 mg/dL Microbiology Date/Time Source Procedure Growth Status 12/03/24 13:51 Foot Right Gram Stain - Final Resulted 12/03/24 13:51 Foot Right Anaerobic Culture - Preliminary Resulted 12/03/24 13:51 Aerobic Culture - Preliminary Escherichia coli Resulted 12/03/24 06:40 Blood Blood Culture - Preliminary NO GROWTH AFTER 48 HOURS OF INCUBATION. Resulted Problem List/Assessment/Plan Problem List/Assessment/Plan S/p 2x debridement of 2 degree burn in the top of the foot: chemical Right foot cellulitis Diabetic foot Ruled out osteomyelitis CT scan showed, mild to moderate diffuse soft tissue edema. No subcutaneous emphysema. Plantar soft tissue ulcer near the 4th metatarsal head MRI: 1. Wounds adjacent to the 4th metatarsal head and 5th digit as detailed above with surrounding soft tissue inflammatory changes, likely cellulitis. 2. Complex fluid collection along the plantar aspect of the proximal phalanx of the 5th digit, likely phlegmon /developing abscess. Limited evaluation for abscess on noncontrast enhanced exam. 3. Mild t2/stir hyperintense signal involving the 5th digit proximal phalanx 4th metatarsal head likely reactive marrow changes to the adjacent infection, with no T1 hypointense signal to suggest osteomyelitis at this time Empiric antibiotic of vancomycin and cefepime Surgery 12/03- 12/05: debridement by Dr Singh Wound culture: pending Blood culture negative prelim Wound consult PICC line for AB for 6 weeks Uncontrolled Diabetes mellitus type 2, with hyperglycemia Hb A1c from 10/29/2024, shows 11.6 Patient is using Ozempic at home Per patient her primary care stopped insulin 5 months back Injection Lantus 20 units daily Insulin regular moderate SS PAD No flow demonstrated in the posterior tibial artery, suspected occlusion History of ischemic stroke continue aspirin and atorvastatin Per Vascular surgery: no need of intervention for now Hypertension Amlodipine Mild hyponatremia, monitoring SERAFIN, on CKD grade 3 a, 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 No hydronephrosis. Creatinine is improving Losartan Mild anemia, normocytic normochromic Monitoring Dyslipidemia Atorvastatin DIET: Diabetic diet DVT PROPHYLAXIS: Patient is mobile, no indication for anticoagulant CODE STATUS: Goal of care discussed for more than 27 minutes, full code DISPOSITION: Med surge Patient's status discussed with patient. Case discussed with Dr. Jesus Time spent on care 23 min Plan discussed with: Patient, Other (rn) My Orders My Orders Orders - LEONARD SWANSON Procedure Category Date Status Time Potassium Chl PHA 12/05/24 In Process 20meq/100ml 17:30 Dietary Evaluation Review Comments: 2 G Na, CCHO-60g, diet when Pt is off NPO. No Arnold d/t CKD Expected Outcomes/Goals: tight DM control, gradual weight loss, healed wounds Date of Service: Dec 05, 2024 Billing Provider: JOSE FRANCISCO JESUS MD Common Visit Codes: [id number] INP/OBS CARE(HIGH) LEONARD SWANSON RESIDENT Dec 05, 2024 18:32 JOSE FRANCISCO JESUS MD Dec 06, 2024 15:18
[2024-12-06] VITALS (8 sets, daily range): BP systolic 147–156; BP diastolic 74–91; PULSE 66–81; RESP 18–20; TEMP 97.7–98.6; O2SAT 92–97
[2024-12-06 05:14] LABS: Basophils # (auto) 0.1 10 ^3/uL (0-0.2); Eosinophils # (auto) 0 10 ^3/uL (0-0.8); Monocytes # (auto) 0.5 10 ^3/uL (0-1.3); Monocytes % (auto) 3.6 % (0.0-12.0)
[2024-12-06 05:16] LABS: Basophils % (auto) 0.4 % (0.0-2.0); Hematocrit 32.7 % (36.0-46.0); Lymphocytes # (auto) 1.2 10 ^3/uL (0.4-5.4); Mean Corpuscular Hemoglobin 29.9 pg (28.0-32.0); Mean Corpuscular Hgb Conc. 33.7 g/dL (32.0-36.0); Mean Corpuscular Volume 88.9 fL (80.0-100.0); Neutrophils # (auto) 11.5 10 ^3/uL (1.6-8.6); Platelet Count (auto) 472 10^3/uL (140-450); Red Blood Cells 3.67 10^6/uL (4.0-5.20); Red Cell Distribution Width 13.2 % (11.8-14.3); White Blood Cell 13.2 10^3/uL (4.4-10.8)
[2024-12-06 06:02] LABS: Calcium 9.2 mg/dL (8.7-10.4); Chloride 105 mmol/L (98-107); Potassium 4.1 mmol/L (3.5-5.1)
[2024-12-06 06:03] LABS: Anion Gap 9 (5-15); Carbon Dioxide 21 mmol/L (20-31)
[2024-12-06 06:09] LABS: BUN/Creatinine Ratio 18.7 (10.0-20.0); Blood Urea Nitrogen 23 mg/dL (9-23)
[2024-12-06 06:20] LABS: Glucose 295 mg/dL (74-106); Sodium 135 mmol/L (136-145)
[2024-12-06] MEDS: INSULIN LANTUS (GLARGINE) 1 /0.01ml (100units/ml) SC SCH (10:07)
--- NOTE | 2024-12-06 13:20 | DVHPN2 ---
Subjective This is a 59-year-old female with past medical history of diabetes mellitus, hypertension, hyperlipidemia, CKD and ischemic stroke presented to the hospital due to right foot swelling and pain. Per patient, she has the chronic ulcer on the right foot since 1.5 year. Per patient, 4 days back she has boiled some remedies and dipped his foot into the boiled fluid, later on it leads to his right foot redness and swelling. Patient denies any fever, nausea, vomiting, chest pain, chills, bleeding or any recent trauma. Changes from previous H/P or p: No Changes Objective Vitals Vital Signs Date Time Temp Pulse Resp B/P (MAP) Pulse Ox O2 Delivery O2 Flow Rate FiO2 12/06/24 10:00 150/74 12/06/24 09:00 98.6 66 19 94 98.6 12/05/24 20:00 Room Air* 0 21 Intake/Output Intake and Output 12/06/24 07:00 Intake Total 2250 ml Output Total 200 ml Balance 2050 ml Intake Oral 1600 ml IV Total 650 ml Output Urine Total 200 ml # Voids 5 # Bowel Movements 1 Exam DERMATOLOGIC EXAM: - Skin is dry and cool to the touch dry bilaterally. - Nails 1-5 of the bilateral foot are thickened, discolored, dystrophic, and tender to palpate with subungual debris - Hair loss noted to bilateral feet Wound #1: Location: Plantar right foot Measurements: Length 1 cm x width.1 cm x depth1 cm. Wound margins: Hyperkeratotic. Wound base: Full thickness. General Appearance: Necrotic Probes to Bone: No Purulent drainage: No Serous drainage: No Erythema: Erythema VASCULAR EXAM: - DP and PT pulses are palpable bilaterally. - SENIOR MANUFACTURING ENGINEER is brisk to all digits. - Feet are cool to touch compared to lower legs bilaterally. NEUROLOGIC EXAM: - Normal light touch sensation to the superficial peroneal, deep peroneal, sural, saphenous, and tibial nerve branches. - Protective sensation is diminished as tested with a 5.07 10g [place] bilaterally. MUSCULOSKELETAL EXAM: - No gross deformities - Muscle strength is 5/5 and active motion is pain-free and symmetrical bilaterally - No pain or crepitation with passive range of motion bilaterally to all major pedal joints Medications Current Medications Medications Dose Ordered Sig/Mesfin Route Start Time Stop Time Status Last Admin Dose Admin Vancomycin HCl 0 ml @ 0 mls/hr UD IV 12/03/24 01:15 Cefepime HCl 50 ml @ 12.5 mls/hr Q12HR IV 12/03/24 10:00 12/06/24 10:01 12.5 MLS/HR Diagnostic Test (Pha) 1 strip ACHS 12/03/24 07:00 12/06/24 11:30 1 STRIP Insulin Human Regular HS SC 12/03/24 22:00 12/05/24 20:17 10 UNITS Insulin Human Regular AC SC 12/03/24 07:00 12/06/24 12:08 9 UNITS Dextrose 50 ml UD PRN IV 12/03/24 01:15 Acetaminophen 650 mg Q4HP PRN PO 12/03/24 01:15 12/05/24 14:39 650 MG Atorvastatin Calcium 40 mg HS PO 12/03/24 22:00 12/05/24 22:17 40 MG Losartan Potassium 50 mg DAILY PO 12/05/24 10:00 12/06/24 10:00 50 MG Vancomycin HCl 250 ml @ 250 mls/hr Q18H IV 12/04/24 18:00 12/06/24 06:36 250 MLS/HR Insulin Glargine 24 units DAILY@1000 SC 12/06/24 10:00 12/06/24 10:07 24 UNITS Laboratory Results Laboratory Tests 12/06/24 04:45 Chemistry Test 12/06/24 04:45 Calcium Level 9.2 mg/dL (8.7-10.4) Urinalysis Test 12/02/24 17:55 Urine Color Light-yellow (Yellow) Urine Clarity Clear (Clear) Urine pH 7.0 (5.0-9.0) Urine Specific [place] 1.021 (1.001-1.035) Urine Protein 3+ (Negative) H Urine Ketones Negative (Negative) Urine Blood Trace /uL (Negative) H Urine Nitrite Negative (Negative) Urine Bilirubin Negative (Negative) Urine Urobilinogen Normal mg/dL (Negative) Urine Leukocyte Esterase Negative /uL (Negative) Urine RBC 1 /hpf (0 - 4) Urine WBC 2 /hpf (0 - 5) Urine Squamous Epithelial Cells Few /hpf (<5) Urine Bacteria None seen /hpf (None Seen) Urine Mucus Few (None Seen) Urine Creatinine 71.08 mg/dL (30.0-125.0) Urine Sodium 64 mmol/L (40-220) Urine Glucose 4+ mg/dL (Normal) H Urine Total Protein 681.4 mg/dL (1-14) H Microbiology Microbiology Date/Time Source Procedure Growth Status 12/03/24 13:51 Foot Right Gram Stain - Final Resulted 12/03/24 13:51 Foot Right Anaerobic Culture - Preliminary Resulted 12/03/24 13:51 Aerobic Culture - Preliminary Escherichia coli Resulted 12/03/24 06:40 Blood Blood Culture - Preliminary NO GROWTH AFTER 72 HOURS OF INCUBATION. Resulted Assessment/Plan Assessment/Plan ASSESSMENT: Patient is a year old seen on the floor 1day s/p from a right foot incision drainage PLAN: - The patients chart was reviewed, clinical findings were discussed with the patient, the etiologies of the conditions were discussed in detail, and a treatment plan was agreed to at this time, with both oral and written instructions provided. - reviewed advanced imaging - discussed plan is to perform an incision and drainage on Monday with placement of graft and closure - patient will be NPO at Monday midnight - following up on cultures - can weightbear as tolerated in postoperative shoe All questions were answered and concerns addressed to the patient's satisfaction. The patient was given the phone number to the clinic and was told how to make contact with the clinic should any concerns or questions arise. Patient understands that if any questions or concerns arise prior to the next appointment, we should be contacted immediately. FOLLOW-UP: Continue to follow while inpatient Plan discussed with: Patient Problem List: (1) Hyperglycemia (2) Cellulitis and abscess of foot (3) Disequilibrium (4) Right sided numbness Date of Service: Dec 06, 2024 Billing Provider: RACHEL SINGH DPM Common Visit Codes: [id number] INP/OBS CARE(MOD) RACHEL SINGH DPM Dec 06, 2024 13:20
--- NOTE | 2024-12-06 14:28 | ECG ---
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
[2024-12-06] MEDS: LIDOCAINE 1% (LOCAL ANESTH.) PF 5ml SDV ID ONE (15:30)
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
[2024-12-06] MEDS: SODIUM CHLOR 0.9% PF (SALINE LOCK) 10ML VIAL/SYR IV SCH (21:04)
[2024-12-07 05:00] VITALS: BP 139/79; PULSE 67; RESP 18; TEMP 97.7; O2SAT 97
[2024-12-07 08:00] VITALS: O2SAT 94
[2024-12-07 08:43] LABS: Basophils # (auto) 0 10 ^3/uL (0-0.2); Basophils % (auto) 0.3 % (0.0-2.0); Eosinophils # (auto) 0.1 10 ^3/uL (0-0.8); Eosinophils % (auto) 1.1 % (0.0-7.0); Hematocrit 33.1 % (36.0-46.0); Hemoglobin 10.8 g/dL (12.2-16.2); Lymphocytes # (auto) 3.5 10 ^3/uL (0.4-5.4); Lymphocytes % (auto) 29.9 % (10.0-50.0); Mean Corpuscular Hemoglobin 29.1 pg (28.0-32.0); Mean Corpuscular Hgb Conc. 32.8 g/dL (32.0-36.0); Mean Corpuscular Volume 88.9 fL (80.0-100.0); Monocytes # (auto) 0.8 10 ^3/uL (0-1.3); Monocytes % (auto) 6.9 % (0.0-12.0); Neutrophils # (auto) 7.2 10 ^3/uL (1.6-8.6); Neutrophils % (auto) 61.8 % (37.0-80.0); Platelet Count (auto) 447 10^3/uL (140-450); Red Blood Cells 3.72 10^6/uL (4.0-5.20); Red Cell Distribution Width 13.2 % (11.8-14.3); White Blood Cell 11.6 10^3/uL (4.4-10.8)
[2024-12-07 09:00] VITALS: BP 146/84; PULSE 75; RESP 19; TEMP 98.8; O2SAT 94
[2024-12-07 09:25] LABS: Potassium 3.9 mmol/L (3.5-5.1); Sodium 139 mmol/L (136-145)
[2024-12-07 09:26] LABS: Anion Gap 10 (5-15); Calcium 9.1 mg/dL (8.7-10.4)
[2024-12-07 09:28] LABS: Carbon Dioxide 20 mmol/L (20-31); Chloride 109 mmol/L (98-107)
[2024-12-07 09:31] LABS: BUN/Creatinine Ratio 18.8 (10.0-20.0); Blood Urea Nitrogen 22 mg/dL (9-23)
[2024-12-07 09:32] LABS: Glucose 100 mg/dL (74-106)
[2024-12-07] MEDS: HYDROcodone-ACET 5/325MG TAB PO PRN (09:57)
[2024-12-07] MEDS: INSULIN LANTUS (GLARGINE) 1 /0.01ml (100units/ml) SC SCH (10:10)
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
[2024-12-07] MEDS: ASPirin 81 mg TAB PO ONE (11:56)
[2024-12-07 13:00] VITALS: BP 152/75; PULSE 73; RESP 18; TEMP 97.7; O2SAT 95
[2024-12-07 17:00] VITALS: BP 146/81; PULSE 74; RESP 19; TEMP 98; O2SAT 98
[2024-12-07 21:00] VITALS: BP 143/84; PULSE 76; RESP 17; TEMP 98.1; O2SAT 94
[2024-12-08 05:00] VITALS: BP 156/77; PULSE 75; RESP 19; TEMP 98.5; O2SAT 95
[2024-12-08 06:05] LABS: Basophils # (auto) 0.1 10 ^3/uL (0-0.2); Basophils % (auto) 0.5 % (0.0-2.0); Eosinophils # (auto) 0.3 10 ^3/uL (0-0.8); Eosinophils % (auto) 2.5 % (0.0-7.0); Hematocrit 34.9 % (36.0-46.0); Hemoglobin 11.4 g/dL (12.2-16.2); Lymphocytes # (auto) 3.1 10 ^3/uL (0.4-5.4); Lymphocytes % (auto) 27.2 % (10.0-50.0); Mean Corpuscular Hemoglobin 29.1 pg (28.0-32.0); Mean Corpuscular Hgb Conc. 32.8 g/dL (32.0-36.0); Mean Corpuscular Volume 88.9 fL (80.0-100.0); Monocytes # (auto) 0.9 10 ^3/uL (0-1.3); Monocytes % (auto) 7.8 % (0.0-12.0); Nucleated Red Blood Cells % 0.1 %; Platelet Count (auto) 448 10^3/uL (140-450); Red Blood Cells 3.92 10^6/uL (4.0-5.20); Red Cell Distribution Width 13.4 % (11.8-14.3); White Blood Cell 11.4 10^3/uL (4.4-10.8)
[2024-12-08 06:23] LABS: Anion Gap 8 (5-15); Carbon Dioxide 25 mmol/L (20-31); Chloride 105 mmol/L (98-107); Potassium 4.8 mmol/L (3.5-5.1); Sodium 138 mmol/L (136-145)
[2024-12-08 06:24] LABS: Calcium 9.4 mg/dL (8.7-10.4)
[2024-12-08 06:29] LABS: BUN/Creatinine Ratio 23.9 (10.0-20.0)
[2024-12-08 06:34] LABS: Blood Urea Nitrogen 28 mg/dL (9-23); Glucose 190 mg/dL (74-106)
[2024-12-08 08:27] VITALS: BP 170/72; PULSE 77; RESP 18; TEMP 97.9; O2SAT 98
[2024-12-08] MEDS: ASPirin 81 mg TAB PO SCH (08:45)
[2024-12-08] MEDS: cefTRIAXone 1GM/50ML D5W 50 ML IV SCH (08:46)
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
[2024-12-08 13:00] VITALS: BP 153/83; PULSE 77; RESP 20; TEMP 98.2; O2SAT 92
[2024-12-08] MEDS ORDERED: AMPI500C9 PO (13:35)
[2024-12-08] MEDS: ERTAPENEM SOD INJ 1 GM in SODIUM CHL 0.9% 50 ML IV ONE (15:43)
[2024-12-08 17:14] VITALS: BP 162/76; PULSE 77; RESP 20; TEMP 97.9; O2SAT 95
[2024-12-08] MEDS: AMPICILLIN INJ 500 MG in SODIUM CHL 0.9% 50 ML IV SCH (17:59)
[2024-12-08 21:00] VITALS: BP 146/80; PULSE 79; RESP 16; TEMP 98.4; O2SAT 93
[2024-12-09] VITALS (7 sets, daily range): BP systolic 138–163; BP diastolic 66–83; PULSE 70–76; RESP 10–18; TEMP 97.6–98.2; O2SAT 94–100
[2024-12-09] MEDS: INSULIN LANTUS (GLARGINE) 1 /0.01ml (100units/ml) SC SCH (09:22)
[2024-12-09] MEDS ORDERED: GLYCOPYRROLATE 0.2 MG/ML 1ML VIAL ONE (09:39)
[2024-12-09] MEDS ORDERED: PROPOFOL 10 MG/ML 20 ML IV ONE (09:39)
[2024-12-09] MEDS ORDERED: MIDAZOLAM HCL 2MG/2ML 2ml VIAL (1mg/ml) ONE (09:39)
[2024-12-09] MEDS ORDERED: ONDANSETRON HCL 4 MG/2 ML VIAL ONE (09:39)
--- NOTE | 2024-12-09 09:42 | DVHPN2 ---
Subjective This is a 59-year-old female with past medical history of diabetes mellitus, hypertension, hyperlipidemia, CKD and ischemic stroke presented to the hospital due to right foot swelling and pain. Per patient, she has the chronic ulcer on the right foot since 1.5 year. Per patient, 4 days back she has boiled some remedies and dipped his foot into the boiled fluid, later on it leads to his right foot redness and swelling. Patient denies any fever, nausea, vomiting, chest pain, chills, bleeding or any recent trauma. Changes from previous H/P or p: No Changes Objective Vitals Vital Signs Date Time Temp Pulse Resp B/P (MAP) Pulse Ox O2 Delivery O2 Flow Rate FiO2 12/09/24 08:00 Room Air* 0 21 12/09/24 05:00 98.2 75 18 138/77 (97) 98 98.2 Intake/Output Intake and Output 12/09/24 06:59 Intake Total 1210 ml Output Total 650 ml Balance 560 ml Intake Oral 760 ml IV Total 450 ml Output Urine Total 650 ml # Voids 3 Exam DERMATOLOGIC EXAM: - Skin is dry and cool to the touch dry bilaterally. - Nails 1-5 of the bilateral foot are thickened, discolored, dystrophic, and tender to palpate with subungual debris - Hair loss noted to bilateral feet Wound #1: Location: Plantar right foot Measurements: Length 1 cm x width.1 cm x depth1 cm. Wound margins: Hyperkeratotic. Wound base: Full thickness. General Appearance: Necrotic Probes to Bone: No Purulent drainage: No Serous drainage: No Erythema: Erythema VASCULAR EXAM: - DP and PT pulses are palpable bilaterally. - MENTAL HEALTH ASSOCIATE is brisk to all digits. - Feet are cool to touch compared to lower legs bilaterally. NEUROLOGIC EXAM: - Normal light touch sensation to the superficial peroneal, deep peroneal, sural, saphenous, and tibial nerve branches. - Protective sensation is diminished as tested with a 5.07 10g [place] bilaterally. MUSCULOSKELETAL EXAM: - No gross deformities - Muscle strength is 5/5 and active motion is pain-free and symmetrical bilaterally - No pain or crepitation with passive range of motion bilaterally to all major pedal joints Medications Current Medications Medications Dose Ordered Sig/Mesfin Route Start Time Stop Time Status Last Admin Dose Admin Diagnostic Test (Pha) 1 strip ACHS 12/03/24 07:00 12/09/24 05:12 1 STRIP Insulin Human Regular HS SC 12/03/24 22:00 12/08/24 21:30 4 UNITS Insulin Human Regular AC SC 12/03/24 07:00 12/08/24 18:03 3 UNITS Dextrose 50 ml UD PRN IV 12/03/24 01:15 Acetaminophen 650 mg Q4HP PRN PO 12/03/24 01:15 12/05/24 14:39 650 MG Atorvastatin Calcium 40 mg HS PO 12/03/24 22:00 12/08/24 21:05 40 MG Losartan Potassium 50 mg DAILY PO 12/05/24 10:00 12/08/24 08:45 50 MG Sodium Chloride 10 ml QSHIFT@ IV 12/06/24 22:00 12/09/24 09:20 10 ML Acetaminophen/ Hydrocodone Bitart 1 tab Q8HPRN PRN PO 12/07/24 09:15 12/09/24 00:42 1 TAB Aspirin 81 mg DAILY PO 12/08/24 10:00 12/08/24 08:45 81 MG Insulin Glargine 30 units DAILY@1000 SC 12/09/24 10:00 12/09/24 09:22 30 UNITS Ampicillin Sodium 500 mg/Sodium Chloride 50 ml @ 100 mls/hr Q6HR IV 12/08/24 18:00 12/09/24 05:11 100 MLS/HR Ertapenem 1 gm/ Sodium Chloride 50 ml @ 100 mls/hr DAILY IV 12/09/24 10:00 UNV Hydromorphone HCl 0.25 mg Q10M PRN IV 12/09/24 09:45 12/09/24 10:16 UNV Laboratory Results Laboratory Tests 12/08/24 05:20 Urinalysis Test 12/02/24 17:55 Urine Color Light-yellow (Yellow) Urine Clarity Clear (Clear) Urine pH 7.0 (5.0-9.0) Urine Specific [place] 1.021 (1.001-1.035) Urine Protein 3+ (Negative) H Urine Ketones Negative (Negative) Urine Blood Trace /uL (Negative) H Urine Nitrite Negative (Negative) Urine Bilirubin Negative (Negative) Urine Urobilinogen Normal mg/dL (Negative) Urine Leukocyte Esterase Negative /uL (Negative) Urine RBC 1 /hpf (0 - 4) Urine WBC 2 /hpf (0 - 5) Urine Squamous Epithelial Cells Few /hpf (<5) Urine Bacteria None seen /hpf (None Seen) Urine Mucus Few (None Seen) Urine Creatinine 71.08 mg/dL (30.0-125.0) Urine Sodium 64 mmol/L (40-220) Urine Glucose 4+ mg/dL (Normal) H Urine Total Protein 681.4 mg/dL (1-14) H Microbiology Microbiology Date/Time Source Procedure Growth Status 12/03/24 13:51 Foot Right Gram Stain - Final Resulted 12/03/24 13:51 Foot Right Anaerobic Culture - Preliminary Resulted 12/03/24 13:51 Aerobic Culture - Final Escherichia coli Enterococcus faecalis Resulted 12/03/24 06:40 Blood Blood Culture - Final NO GROWTH AFTER 5 DAYS OF INCUBATION. Complete Assessment/Plan Assessment/Plan ASSESSMENT: Patient is a year old seen on the floor 3 day s/p from a right foot incision drainage PLAN: - The patients chart was reviewed, clinical findings were discussed with the patient, the etiologies of the conditions were discussed in detail, and a treatment plan was agreed to at this time, with both oral and written instructions provided. - reviewed advanced imaging - discussed plan is to perform an incision and drainage on Monday with placement of graft and closure - patient will be NPO at Monday midnight - following up on cultures - can weightbear as tolerated in postoperative shoe All questions were answered and concerns addressed to the patient's satisfaction. The patient was given the phone number to the clinic and was told how to make contact with the clinic should any concerns or questions arise. Patient understands that if any questions or concerns arise prior to the next appointment, we should be contacted immediately. FOLLOW-UP: Continue to follow while inpatient Plan discussed with: Patient My Orders Orders - RACHEL SINGH DPM Procedure Category Date Status Time Npo After Midnight DIET 12/08/24 Transmitted Lunch Obtain Consent For: ORDERS 12/08/24 Transmitted 09:56 Problem List: (1) Hyperglycemia (2) Cellulitis and abscess of foot (3) Disequilibrium (4) Right sided numbness Date of Service: Dec 09, 2024 Billing Provider: RACHEL SINGH DPM Common Visit Codes: [id number] INP/OBS CARE(MOD) RACHEL SINGH DPM Dec 09, 2024 09:42
[2024-12-09] MEDS: BUPIVACAINE HCL 50 ML ONE (09:44)
[2024-12-09] MEDS ORDERED: HYDROmorphone HCL 2 MG/ML VL/or syr IV PRN (09:45)
[2024-12-09] MEDS: ONDANSETRON HCL 4 MG/2 ML VIAL IV ONE (09:45)
[2024-12-09] MEDS: ACCU-CHEK COMFORT CURVE STRIP VI ONE (10:15)
--- NOTE | 2024-12-09 10:17 | DVHOP2 ---
Operative Report - 2 Report Details Date: 12/09/24 Preop Diagnosis: 1. Right foot abscess 2. Right foot osteomyelitis 3. Right foot cellulitis 4. Right foot gas gangrene Postop Diagnosis: Same as preop Surgeon: Rachel Singh MD Anesthesiologist: See anesthesia Anesthesia: Mac Consent: The patient was informed of the risks and benefits of the procedure. These include but are not limited to complications of anesthesia, postoperative infection, incomplete relief of symptoms, recurrence of symptoms, damage to blood vessels, nerves and tendons, deep venous thrombosis, pulmonary embolism and possible need for repeat surgery in the future. Complications: None Estimated Blood Loss: Minimal Fluids: See anesthesia Findings: Minimal Indications for Surgery: Worsening right foot wound Name of Procedure Performed 1. Right foot I&D to bone (26392) 2. Right foot wound bed preparation for graft (04660) 3. Right foot graft placement (79081) 4. Right foot delayed closure (33187) Procedure Details Procedure Details: PRE-PROCEDURE INFORMATION: In the pre-op holding area, the extremity to be operated on was clearly marked and the patient verified correct laterality of the marking. The patient was transferred to the OR table and placed in a supine position. A timeout was performed in which identification of the correct patient, procedure, location, and materials was done. The right foot and leg were prepped and draped in normal sterile fashion. DESCRIPTION OF PROCEDURE: Attention was directed to the right where previous incision was made. An incision was made over this area and was deepened through blunt dissection. The incision was deepened to the level of abscess and bone. Care was taken to the dissection to avoid any neurovascular and tendinous structures. The incision was deepened to the bone, and the abscess appeared to be purulent fluid consistent with pus. The cortices of the bone was then removed with Prashant an all necrotic tissue. After the abscess was drained, the area was irrigated with 3 L normal saline using cysto tubing. The wound bed was then prepped for placement of the dermal graft. Using a #15 blade and curette, the base of the wound has removal of all nonadherent and fibrotic material. Using an integra dermal graft, the graft was placed over the wound bed and a staple gun was used to adhere the graft to the wound edges. Delayed closure was performed with 2-0. Was dressed with Xeroform 4 x 4 gauze ABD Webril and Jose POSTOPERATIVE INFORMATION: The patient tolerated the above noted procedure and anesthesia well and was transferred to the PACU with vital signs stable, and vascular status intact with capillary refill intact to all digits. Patient can return to the floor. Patient will weightbear as tolerated in the postoperative shoe. Patient can discharge when deemed medically stable. Condition Good Disposition Still a Patient RACHEL SINGH DPM Dec 09, 2024 10:17
[2024-12-09] MEDS: ERTAPENEM SOD INJ 1 GM in SODIUM CHL 0.9% 50 ML IV SCH (11:39)
--- NOTE | 2024-12-09 12:29 | DVHINCON2 ---
Date of service: Dec 09, [address] Lewis Reason for Consultation Right foot abscess. History of Present Illness Patient is a 59-year-old female presents to the hospital for the complaint of right foot swelling and pain. Per patient, she has the chronic ulcer on the right foot since 1.5 year. Patient reports that 4 days back she boiled some remedies and dipped his foot into the boiled fluid, later on it leads to right foot redness and swelling. Patient is evaluated in the floor bed status post foot debridement today by Podiatry. Her right foot is wrapped. Past Medical History Patient's past medical history is significant for diabetes mellitus, hypertension, hyperlipidemia, CKD and ischemic stroke. Family History: Diabetes mellitus G8 MOTHER G8 FATHER FHx: leukemia Hypertension G8 MOTHER G8 FATHER Social History Patient lives with her boyfriend at home, ex-smoker, denies alcohol or any drug use Allergies: Coded Allergies: NO KNOWN ALLERGIES (Unverified , 10/28/24) Home Meds Active Scripts Ampicillin (Ampicillin) 500 Mg Cap, 500 MG PO QID for 35 Days, #120 CAP Prov:LEONARD SWANSON RESIDENT 12/08/24 Ergocalciferol (VITAMIN D 39068 UNIT) 50,000 [place], [address] UNIT PO Q7D for 30 Days, #10 CAP Prov:BEENA PATE RESIDENT 10/31/24 Clopidogrel Bisulfate (CLOPIDOGREL) 75 Mg Tab, 75 MG PO DAILY for 30 Days, #30 TAB Prov:BEENA PATE RESIDENT 10/31/24 Atorvastatin Calcium (ATORVASTATIN CALCIUM) 20 Mg Tab, 40 MG PO HS for 30 Days, #60 TAB Prov:BEENA PATE RESIDENT 10/31/24 Aspirin (Aspirin Low Dose) 81 Mg Tab, 81 MG PO DAILY for 30 Days, #30 TAB Prov:BEENA PATE RESIDENT 10/31/24 Acetaminophen (Acetaminophen) 325 Mg Tab, 650 MG PO Q6HP PRN for 10 Days, #80 TAB Prov:BEENA PATE RESIDENT 10/31/24 Reported Medications Loratadine (Claritin) 10 Mg Tab, 1 TAB PO DAILY for 90 Days, #90 10/29/24 Insulin Aspart (Novolog Flexpen Relion) 100 Unit/Ml Inj, 10 UNIT SC BID for 75 Days, #15 10/29/24 Metformin Hydrochloride (Metformin Hcl) 1,000 Mg Tab, 1 TAB PO BID for 90 Days, #180 10/29/24 Fenofibrate (Fenofibrate Micronized) 200 Mg Cap, 1 CAP PO DAILY for 100 Days, #100 10/29/24 Semaglutide (Ozempic) 2 Mg/3 Ml Inj, 0.25 MG SC QWEEKLY for 56 Days, #3 10/29/24 Insulin Glargine (Basaglar Kwikpen) 100 Unit/Ml Inj, 10 UNIT SC HS for 75 Days, #9 10/29/24 Dapagliflozin Propanediol (Farxiga) 10 Mg Tab, 1 TAB PO DAILY for 90 Days, #90 10/29/24 Losartan Potassium (Losartan Potassium) 50 Mg Tab, 1 TAB PO DAILY for 90 Days, #90 10/29/24 Dorzolamide-Timolol (Dorzolamide Hcl/Timolol M) 1 Ml Eloisa, 1 DROP LEFTEYE BID for 60 Days, #10 10/29/24 Carboxymethylcellulose Sodium (Refresh Tears) 0.5 % Devin, 1-2 DROP EACHEYE QID for 30 Days, #15 10/29/24 Current Medications Current Medications Medications (Trade) Dose Ordered Sig/Mesfin Route PRN Reason Start Time Stop Time Status Last Admin Insulin Glargine (Lantus) 30 units DAILY@1000 SC 12/09/24 10:00 12/09/24 09:22 Ampicillin Sodium 500 mg/Sodium Chloride 50 ml @ 100 mls/hr Q6HR IV 12/08/24 18:00 12/09/24 05:11 Ertapenem 1 gm/ Sodium Chloride 50 ml @ 100 mls/hr DAILY IV 12/09/24 10:00 12/09/24 11:39 Hydromorphone HCl (Dilaudid Injection) 0.25 mg Q10M PRN IV MODERATE PAIN (4-6 PAIN SCALE) 12/09/24 09:45 12/09/24 10:17 DC Review of Systems General: patient denies fever, fatigue, weaknes, sweating, any recent changes in appetite and weight HEENT: No headaches, visiual changes, hearing loss, tinnitus, nasal congestion and discharge, and sore throat. Cardiovascular: Denies chest pain, palpitations, dyspnea on exertion, orthopnea, or claudication. Respiratory: No cough, and wheezing. Gastrointestinal: Denies nausea, vomiting, dysphagia, odynophagia, heartburn, abdominal pain, flatulence, bloating, diarrhea, constipation, change in stool, or blood in stool. Genitourinary: No dysuria, hematuria, discharge, frequency, urgency, nocturia, incontinence, and urinary retention. Endocrine: No heat or cold intolerance, polydipsia, polyuria, and polyphagia. Neurological: Reports right-sided upper limb numbness Psychiatric: Denies depression, anxiety,or insomnia. Musculoskeletal: Reports right foot pain Vital Signs Vital Signs Date Time Temp Pulse Resp B/P (MAP) Pulse Ox O2 Delivery O2 Flow Rate FiO2 12/09/24 10:41 72 17 127/65 (85) 95 12/09/24 10:30 Nasal Cannula 2.0 12/09/24 10:11 97.5 97.5 12/09/24 08:00 21 Physical Exam General Appearance: Alert, Oriented X3, Cooperative, No acute distress HEENT: Atraumatic, PERRLA, EOMI, Mucous membrane moist/pink Respiratory: Clear to auscultation, Normal air movement Cardiovascular: Regular rate, Normal S1, Normal S2, No murmurs, no chest wall tenderness Abdominal: Normal bowel sounds, Soft, No tenderness, No hepatospenomegaly, No masses Extremities: Right foot and swelling, there is an ulcer on the sole with purulent discharge Skin: No rashes, No breakdown, No significant lesion Neuro: Right-sided residual weakness due to previous ischemic stroke Labs/Diagnostic Data Labs Test 12/09/24 11:13 12/08/24 05:20 12/06/24 04:45 12/04/24 08:14 Range/Units POC Glucose 104 70-106 mg/dl White Blood Count 11.4 H 4.4-10.8 10^3/uL Red Blood Count 3.92 L 4.0-5.20 10^6/uL Hemoglobin 11.4 L 12.2-16.2 g/dL Hematocrit 34.9 L 36.0-46.0 % Mean Corpuscular Volume 88.9 80.0-100.0 fL Mean Corpuscular Hemoglobin 29.1 28.0-32.0 pg Mean Corpuscular Hemoglobin Concent 32.8 32.0-36.0 g/dL Red Cell Distribution Width 13.4 11.8-14.3 % Platelet Count 448 140-450 10^3/uL Mean Platelet Volume 7.9 6.9-10.8 fL Neutrophils (%) (Auto) 62.0 37.0-80.0 % Lymphocytes (%) (Auto) 27.2 10.0-50.0 % Monocytes (%) (Auto) 7.8 0.0-12.0 % Eosinophils (%) (Auto) 2.5 0.0-7.0 % Basophils (%) (Auto) 0.5 0.0-2.0 % Neutrophils # (Auto) 7.0 1.6-8.6 10 ^3/uL Lymphocytes # (Auto) 3.1 0.4-5.4 10 ^3/uL Monocytes # (Auto) 0.9 0-1.3 10 ^3/uL Eosinophils # (Auto) 0.3 0-0.8 10 ^3/uL Basophils # (Auto) 0.1 0-0.2 10 ^3/uL Nucleated Red Blood Cells 0.1 % Sodium Level 138 136-145 mmol/L Potassium Level 4.8 3.5-5.1 mmol/L Chloride Level 105 98-107 mmol/L Carbon Dioxide Level 25 20-31 mmol/L Anion Gap 8 5-15 Blood Urea Nitrogen 28 H 9-23 mg/dL Creatinine 1.17 H 0.550-1.02 mg/dL Glomerular Filtration Rate Calc 53 >90 mL/min BUN/Creatinine Ratio 23.9 H 10.0-20.0 Serum Glucose 190 H 74-106 mg/dL Calcium Level 9.4 8.7-10.4 mg/dL Vancomycin Level Trough 14.2 H 5-10 ug/mL Total Bilirubin 0.2 0.2-1.0 mg/dL Aspartate Amino Transferase (AST) < 8 L 13-40 U/L Alanine Aminotransferase (ALT) 13 7-40 U/L Alkaline Phosphatase 135 H 46-116 U/L Total Protein 5.5 L 5.7-8.2 g/dL Albumin 2.8 L 3.2-4.8 g/dL Random Vancomycin Level 11.3 H 5-10 ug/mL Test 12/03/24 06:40 12/02/24 17:55 Range/Units Prothrombin Time 11.1 9.3-11.8 sec Prothrombin Time INR 1.05 0.9-1.15 Lactic Acid Level 1.1 0.4-2.0 mmol/L Urine Color Light-yellow Yellow Urine Clarity Clear Clear Urine pH 7.0 5.0-9.0 Urine Specific [place] 1.021 1.001-1.035 Urine Protein 3+ H Negative Urine Ketones Negative Negative Urine Blood Trace H Negative /uL Urine Nitrite Negative Negative Urine Bilirubin Negative Negative Urine Urobilinogen Normal Negative mg/dL Urine Leukocyte Esterase Negative Negative /uL Urine RBC 1 0 - 4 /hpf Urine WBC 2 0 - 5 /hpf Urine Squamous Epithelial Cells Few <5 /hpf Urine Bacteria None seen None Seen /hpf Urine Mucus Few None Seen Urine Creatinine 71.08 30.0-125.0 mg/dL Urine Sodium 64 40-220 mmol/L Urine Glucose 4+ H Normal mg/dL Urine Total Protein 681.4 H 1-14 mg/dL Microbiology Date/Time Source Procedure Growth Status 12/03/24 13:51 Foot Right Gram Stain - Final Resulted 12/03/24 13:51 Foot Right Anaerobic Culture - Preliminary Resulted 12/03/24 13:51 Aerobic Culture - Final Escherichia coli Enterococcus faecalis Resulted 12/03/24 06:40 Blood Blood Culture - Final NO GROWTH AFTER 5 DAYS OF INCUBATION. Complete Assessment Patient is a 59-year-old female presented to the hospital with: Right foot abscess right foot gangrene osteomyelitis Streptococcus infection enterococcus faecalis infection PAD Recommendations: s/p multiple debridement OR cx reviewed Discontinue Ampicillin and Ertapenem Switch to IV Unasyn PICC line however patient wants to go to SNF, hence Abx changed to IV ceftriaxone with oral flagyl Arrange IV Ceftriaxone 2g daily for 6 weeks weekly labs CBC with diff, cmp and esr fax to [phone] f/u with ID and podiatry wound care defer to podiatry Prognosis guarded Thank you for consult Plan discussed with: Patient ADONIS RAMOS MD Dec 09, 2024 12:29
[2024-12-09] MEDS ORDERED: AMPICILLIN & SULBACTAM SODIUM 3 GM in SODIUM CHL 0.9% 100 ML IV SCH (13:00)
[2024-12-09] MEDS ORDERED: KETAMINE 50mg/ML 1ml syringe IV ONE (13:20)
--- NOTE | 2024-12-09 14:00 | DVHPNRES ---
Progress Note Date Seen: Dec 09, 2024 Resident Creating Document: LEONARD SWANSON RESIDENT Has the PT tested + for MRSA If YES, has PT been informed?: No Medical Necessity Reason Pt with a Central, PICC or Fol: No Subjective Review of Systems This is a 59-year-old female with past medical history of diabetes mellitus, hypertension, hyperlipidemia, CKD and ischemic stroke presented to the hospital due to right foot swelling and pain. Per patient, she has the chronic ulcer on the right foot since 1.5 year. Per patient, 4 days back she has boiled chloride, bicarbonate and dipped his foot into the hot fluid, later on it leads to his right foot redness and swelling. Patient denies any fever, nausea, vomiting, chest pain, chills, bleeding or any recent trauma. PMHx: diabetes mellitus, hypertension, hyperlipidemia, CKD and ischemic stroke PSHx: Noncontributory Family history: Noncontributing Social history: Patient lives with her boyfriend at home, ex-smoker, denies alcohol or any drug use Home medication: Atorvastatin, aspirin, clopidogrel, Ozempic, per patient her PCP stopped insulin 5 months back Objective vital signs Vital Sign Date Time Temp Pulse Resp B/P (MAP) Pulse Ox O2 Delivery O2 Flow Rate FiO2 12/09/24 10:41 72 17 127/65 (85) 95 12/09/24 10:30 Nasal Cannula 2.0 12/09/24 10:11 97.5 97.5 12/09/24 08:00 21 Total Intake and Output 12/08/24 12/08/24 12/09/24 15:00 23:00 07:00 Intake Total 50 ml 1060 ml 100 ml Output Total 650 ml Balance 50 ml 410 ml 100 ml medications Current Medications Medications Dose Ordered Sig/Mesfin Route Start Time Stop Time Status Last Admin Dose Admin Diagnostic Test (Pha) 1 strip ACHS 12/03/24 07:00 12/09/24 11:39 1 STRIP Insulin Human Regular HS SC 12/03/24 22:00 12/08/24 21:30 4 UNITS Insulin Human Regular AC SC 12/03/24 07:00 12/08/24 18:03 3 UNITS Dextrose 50 ml UD PRN IV 12/03/24 01:15 Acetaminophen 650 mg Q4HP PRN PO 12/03/24 01:15 12/05/24 14:39 650 MG Atorvastatin Calcium 40 mg HS PO 12/03/24 22:00 12/08/24 21:05 40 MG Losartan Potassium 50 mg DAILY PO 12/05/24 10:00 12/08/24 08:45 50 MG Sodium Chloride 10 ml QSHIFT@10,22 IV 12/06/24 22:00 12/09/24 09:20 10 ML Acetaminophen/ Hydrocodone Bitart 1 tab Q8HPRN PRN PO 12/07/24 09:15 12/09/24 00:42 1 TAB Aspirin 81 mg DAILY PO 12/08/24 10:00 12/08/24 08:45 81 MG Insulin Glargine 30 units DAILY@1000 SC 12/09/24 10:00 12/09/24 09:22 30 UNITS Ampicillin Sodium/ Sulbactam Sodium 3 gm/Sodium Chloride 100 ml @ 100 mls/hr Q6H IV 12/09/24 13:00 Examination General Appearance: Alert, Oriented X3, Cooperative, No acute distress HEENT: Atraumatic, PERRLA, EOMI, Mucous membrane moist/pink Respiratory: Clear to auscultation, Normal air movement Cardiovascular: Regular rate, Normal S1, Normal S2, No murmurs, no chest wall tenderness Abdominal: Normal bowel sounds, Soft, No tenderness, No hepatospenomegaly, No masses Extremities: Right foot and swelling, second degree burn in the top of the foot there is an ulcer on the sole with purulent discharge Skin: No rashes, No breakdown, No significant lesion Neuro: Right-sided residual weakness due to previous ischemic stroke laboratory and microbiology Laboratory Tests 12/08/24 05:20 Test 12/08/24 05:20 Range/Units Serum Glucose 190 H 74-106 mg/dL Microbiology Date/Time Source Procedure Growth Status 12/03/24 13:51 Foot Right Gram Stain - Final Resulted 12/03/24 13:51 Foot Right Anaerobic Culture - Preliminary Resulted 12/03/24 13:51 Aerobic Culture - Final Escherichia coli Enterococcus faecalis Resulted 12/03/24 06:40 Blood Blood Culture - Final NO GROWTH AFTER 5 DAYS OF INCUBATION. Complete Problem List/Assessment/Plan Problem List/Assessment/Plan S/p 2x debridement of 2 degree burn in the top of the foot: chemical Right foot cellulitis Diabetic foot Ruled out osteomyelitis CT scan showed, mild to moderate diffuse soft tissue edema. No subcutaneous emphysema. Plantar soft tissue ulcer near the 4th metatarsal head MRI: 1. Wounds adjacent to the 4th metatarsal head and 5th digit as detailed above with surrounding soft tissue inflammatory changes, likely cellulitis. 2. Complex fluid collection along the plantar aspect of the proximal phalanx of the 5th digit, likely phlegmon /developing abscess. Limited evaluation for abscess on noncontrast enhanced exam. 3. Mild t2/stir hyperintense signal involving the 5th digit proximal phalanx 4th metatarsal head likely reactive marrow changes to the adjacent infection, with no T1 hypointense signal to suggest osteomyelitis at this time Dr Lemus consulted: Ceftriaxone for 3 weeks and then flagyl for other 3 weeks PT evaluation ordered Possible DC to SNF Surgery 12/03- 12/05: debridement by Dr Singh Skin Graft and closure today PICC line placed Wound culture: ecoli, e faecalis Blood culture negative Wound consult PICC line for AB for 4 weeks Uncontrolled Diabetes mellitus type 2, with hyperglycemia Hb A1c from 10/29/2024, shows 11.6 Patient is using Ozempic at home Per patient her primary care stopped insulin 5 months back Injection Lantus 30 units daily Insulin regular moderate SS PAD No flow demonstrated in the posterior tibial artery, suspected occlusion History of ischemic stroke continue aspirin and atorvastatin Per Vascular surgery: no need of intervention for now Hypertension Amlodipine Mild hyponatremia, monitoring SERAFIN, on CKD grade 3 a, likely VMN Proteinuria due to diabetic nephropathy IV fluids given Renal US: Echogenic bilateral kidneys suggestive of chronic renal disease. No hydronephrosis. Creatinine is improving Losartan Mild anemia, normocytic normochromic Monitoring Dyslipidemia Atorvastatin DIET: Diabetic diet DVT PROPHYLAXIS: Patient is mobile, no indication for anticoagulant CODE STATUS: Goal of care discussed for more than 27 minutes, full code DISPOSITION: Med surge Patient's status discussed with patient. Case discussed with Dr. Márquez Time spent on care 23 min Plan discussed with: Patient, Other (rn) My Orders My Orders Orders - LEONARD SWANSON RESIDENT Procedure Category Date Status Time Pt Request For Service PT 12/09/24 Logged 11:09 Consistent DIET 12/09/24 Transmitted Carb(Ccho)Diabetes Lunch * Infectious Saadia- CONS 12/09/24 Transmitted Mariah 13:32 * Drug Abuse Program Coordinator CONS 12/09/24 Transmitted Consult Dietary Evaluation Review Comments: 2 G Na, CCHO-60g, diet when Pt is off NPO. No Arnold d/t CKD Expected Outcomes/Goals: tight DM control, gradual weight loss, healed wounds Date of Service: Dec 09, 2024 Billing Provider: GLORY MÁRQUEZ MD Common Visit Codes: [id number] INP/OBS CARE(HIGH) LEONARD SWANSON RESIDENT Dec 09, 2024 14:00 GLORY MÁRQUEZ MD Dec 09, 2024 18:42
[2024-12-10 01:00] VITALS: BP 139/71; PULSE 77; RESP 18; TEMP 98.4; O2SAT 93
[2024-12-10 05:00] VITALS: BP 116/56; PULSE 76; RESP 18; TEMP 98.5; O2SAT 93
[2024-12-10 09:00] VITALS: BP 158/72; PULSE 74; RESP 18; TEMP 98.5; O2SAT 96
--- NOTE | 2024-12-10 09:09 | DVHPN2 ---
Progress Note - Dictate Date Seen: Dec 10, 2024 Has the PT tested + for MRSA If YES, has PT been informed?: No Medical Necessity Reason Pt with a Central, PICC or Fol: No Subjective Patient is going to be discharged today. vital signs Vital Sign Date Time Temp Pulse Resp B/P (MAP) Pulse Ox O2 Delivery O2 Flow Rate FiO2 12/10/24 05:00 98.5 76 18 116/56 (76) 93 98.5 12/09/24 20:00 Room Air* 0 21 Total Intake and Output 12/09/24 12/09/24 12/10/24 15:00 23:00 07:00 Intake Total 200 ml 1250 ml 250 ml Output Total 400 ml Balance 200 ml 1250 ml -150 ml medications Current Medications Medications Dose Ordered Sig/Mesfin Route Start Time Stop Time Status Last Admin Dose Admin Diagnostic Test (Pha) 1 strip ACHS 12/03/24 07:00 12/10/24 05:37 1 STRIP Insulin Human Regular HS SC 12/03/24 22:00 12/09/24 22:06 3 UNITS Insulin Human Regular AC SC 12/03/24 07:00 12/09/24 16:59 3 UNITS Dextrose 50 ml UD PRN IV 12/03/24 01:15 Acetaminophen 650 mg Q4HP PRN PO 12/03/24 01:15 12/05/24 14:39 650 MG Atorvastatin Calcium 40 mg HS PO 12/03/24 22:00 12/09/24 21:27 40 MG Losartan Potassium 50 mg DAILY PO 12/05/24 10:00 12/08/24 08:45 50 MG Sodium Chloride 10 ml QSHIFT@10,22 IV 12/06/24 22:00 12/09/24 21:27 10 ML Acetaminophen/ Hydrocodone Bitart 1 tab Q8HPRN PRN PO 12/07/24 09:15 12/10/24 02:46 1 TAB Aspirin 81 mg DAILY PO 12/08/24 10:00 12/08/24 08:45 81 MG Insulin Glargine 30 units DAILY@1000 SC 12/09/24 10:00 12/09/24 09:22 30 UNITS Ceftriaxone Sodium/Dextrose 50 ml @ 50 mls/hr DAILY IV 12/10/24 10:00 objective General Appearance: Alert, Oriented X3, Cooperative, No acute distress HEENT: Atraumatic, PERRLA, EOMI, Mucous membrane moist/pink Respiratory: Clear to auscultation, Normal air movement Cardiovascular: Regular rate, Normal S1, Normal S2, No murmurs, no chest wall tenderness Abdominal: Normal bowel sounds, Soft, No tenderness, No hepatospenomegaly, No masses Extremities: Right foot and swelling, there is an ulcer on the sole with purulent discharge Skin: No rashes, No breakdown, No significant lesion Neuro: Right-sided residual weakness due to previous ischemic stroke laboratory and microbiology Laboratory Tests 12/08/24 05:20 Test 12/08/24 05:20 Range/Units Serum Glucose 190 H 74-106 mg/dL Assessment/Plan Patient is a 59-year-old female presented to the hospital with: Right foot abscess right foot gangrene osteomyelitis Streptococcus infection enterococcus faecalis infection PAD Recommendations: s/p multiple debridement OR cx reviewed Discontinue Ampicillin and Ertapenem Switch to IV Unasyn PICC line 12/03, Aerobic culture showed Escherichia coli and Enterococcus faecalis Anaerobic culture showed Bacteroides tectum however patient wants to go to SNF, hence Abx changed to IV ceftriaxone with oral flagyl Arrange IV Ceftriaxone 2g daily for 6 weeks weekly labs CBC with diff, cmp and esr fax to [phone] f/u with ID and podiatry wound care defer to podiatry Prognosis guarded Dietary Evaluation Review Comments: 2 G Na, CCHO-60g, diet when Pt is off NPO. No Arnold d/t CKD Expected Outcomes/Goals: tight DM control, gradual weight loss, healed wounds Plan discussed with: Patient ADONIS RAMOS MD Dec 10, 2024 09:09
[2024-12-10] MEDS: cefTRIAXone 2GM/50ML D5W 50 ML IV SCH (11:09)
[2024-12-10 13:00] VITALS: BP 150/68; PULSE 70; RESP 17; TEMP 98.3; O2SAT 95
[2024-12-10 13:23] VITALS: BP 158/72; PULSE 74; RESP 18; TEMP 98.5; O2SAT 96
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
== END 2024-12-10 14:46 | DRG 383 ==
LOC: EDBD 14:40 → ER 14:40 → OVERFLOW 23:22 → CENTRAL 12-03 17:02
PROVIDERS: ADMIT Hospitalist; ATTEND Hospitalist
PROC: 0JBQ0ZZ Excision of Right Foot Subcutaneous Tissue and Fascia, Open Approach (ICD-10-PCS; 2024-12-03)
PROC: 0JBQ0ZZ Excision of Right Foot Subcutaneous Tissue and Fascia, Open Approach (ICD-10-PCS; 2024-12-05)
PROC: 02HV33Z Insertion of Infusion Device into Superior Vena Cava, Percutaneous Approach (ICD-10-PCS; principal; 2024-12-06)
PROC: B548ZZA Ultrasonography of Superior Vena Cava, Guidance (ICD-10-PCS; 2024-12-06)
PROC: 0JBQ0ZZ Excision of Right Foot Subcutaneous Tissue and Fascia, Open Approach (ICD-10-PCS; 2024-12-09)
DX: L02.611 Cutaneous abscess of right foot (principal); N17.0 Acute kidney failure with tubular necrosis; A48.0 Gas gangrene; E11.52 Type 2 diabetes mellitus with diabetic peripheral angiopathy with gangrene; E87.1 Hypo-osmolality and hyponatremia; E11.22 Type 2 diabetes mellitus with diabetic chronic kidney disease; D64.9 Anemia, unspecified; L03.115 Cellulitis of right lower limb; E11.65 Type 2 diabetes mellitus with hyperglycemia; E11.621 Type 2 diabetes mellitus with foot ulcer; I12.9 Hypertensive chronic kidney disease with stage 1 through stage 4 chronic kidney disease, or unspecified chronic kidney disease; E78.5 Hyperlipidemia, unspecified; L97.519 Non-pressure chronic ulcer of other part of right foot with unspecified severity; N18.31 Chronic kidney disease, stage 3a; Z86.73 Personal history of transient ischemic attack (TIA), and cerebral infarction without residual deficits; Z87.891 Personal history of nicotine dependence; Z80.6 Family history of leukemia; Z82.49 Family history of ischemic heart disease and other diseases of the circulatory system; Z83.3 Family history of diabetes mellitus
CPT/HCPCS: 36415; 36569; 73700; 73718; 76775; 80048; 80053; 80202; 81001; 82565; 82570; 82962; 83605; 84156; 84300; 85025; 85610; 87040; 87070; 87075; 87076; 87077; 87186; 87205; 93005; 93926; 96365; 96372; 97110; 97116; 97163; 97530; G0378; J0692; J1100; J1335; J1815; J2250; J2405; J2543; J2704; J3480; J3490